=== PATIENT | female | born 1980 | race Caucasian/White ===

== ENCOUNTER → 2017-07-16 | Outpatient (CLI) | payer BC ==
[2017-07-16 18:43] LABS: Basophils # (A) 0.1 k/uL (0-0.2); Basophils % (A) 1 %; Eosinophils # (A) 0.4 k/uL (0-0.7); Eosinophils % (A) 5 %; HCT 41.6 % (34.0-46.0); HGB 13.6 gm/dL (11.4-16.0); Lymphocytes # (A) 2.5 k/uL (1.0-4.8); Lymphocytes % (A) 28 %; MCH 26.9 pg (25.0-35.0); MCHC 32.7 g/dL (31.0-37.0); MCV 82.2 fL (80.0-100.0); Mean Platelet Volume 7.5; Monocytes # (A) 0.4 k/uL (0-1.0); Monocytes % (A) 5 %; Neutrophils # (A) 5.7 k/uL (1.3-7.7); Neutrophils % (A) 62 %; Platelet Count 410 k/uL (150-450); RBC 5.06 m/uL (3.80-5.40); RDW 13.9 % (11.5-15.5); WBC 9.2 k/uL (3.8-10.6)
[2017-07-16 18:52] LABS: ALT 31 U/L (9-52); AST 20 U/L (14-36); Albumin 4.1 g/dL (3.5-5.0); Alkaline Phosphatase 60 U/L (38-126); Anion Gap 9 mmol/L; Blood Urea Nitrogen 13 mg/dL (7-17); Calcium 10.4 mg/dL (8.4-10.2); Carbon Dioxide 30 mmol/L (22-30); Chloride 102 mmol/L (98-107); Cholesterol 176 mg/dL (<200); Glucose 132 mg/dL (74-99); HDL Cholesterol 41 mg/dL (40-60); Potassium 4.9 mmol/L (3.5-5.1); Sodium 141 mmol/L (137-145); Total Bilirubin 0.4 mg/dL (0.2-1.3); Total Protein 7.4 g/dL (6.3-8.2); Triglycerides 409 mg/dL (<150)
[2017-07-16 19:07] LABS: T4, Free (Free Thyroxine) 1.02 ng/dL (0.78-2.19)
[2017-07-17 01:27] LABS: Vitamin D 25 Hydroxy 5.3 ng/mL (30.0-100.0)
[2017-07-18 12:51] LABS: Hemoglobin A1C 6.2 % (4.0-6.0)
== END | disposition home or self-care (01) ==
LOC: MMGSC 10:13
PROVIDERS: ATTEND Family Medicine
DX: Z00.00 Encounter for general adult medical examination without abnormal findings (principal); Z71.3 Dietary counseling and surveillance
CPT/HCPCS: 36415; 80053; 80061; 82306; 82607; 83036; 83721; 84439; 84443; 85025

== ENCOUNTER 2018-05-01 17:01 | Emergency (ER) | payer BC ==
[2018-05-01 17:31] VITALS: TEMP 98.8
[2018-05-01] MEDS ORDERED: ONDANSETRON 4 MG/2 ML VIAL IVP STA (18:00)
[2018-05-01] MEDS ORDERED: MORPHINE SULFATE 4 MG/ML SYRINGE IV STA (18:00)
[2018-05-01] MEDS ORDERED: PANTOPRAZOLE 40 MG/10 ML VIAL IVP STA (18:00)
[2018-05-01] MEDS ORDERED: SODIUM CHLORIDE 0.9% 1,000 ML IV STA (18:00)
[2018-05-01 18:38] LABS: Basophils # (A) 0.1 k/uL (0-0.2); Basophils % (A) 1 %; Eosinophils # (A) 0.2 k/uL (0-0.7); Eosinophils % (A) 2 %; HCT 44.5 % (34.0-46.0); HGB 15.1 gm/dL (11.4-16.0); Lymphocytes # (A) 2.5 k/uL (1.0-4.8); Lymphocytes % (A) 27 %; MCH 26.8 pg (25.0-35.0); MCV 78.7 fL (80.0-100.0); Mean Platelet Volume 6.4; Monocytes # (A) 0.4 k/uL (0-1.0); Monocytes % (A) 4 %; Neutrophils % (A) 64 %; Platelet Count 407 k/uL (150-450); RBC 5.65 m/uL (3.80-5.40); RDW 14.5 % (11.5-15.5); WBC 9.4 k/uL (3.8-10.6)
[2018-05-01 18:39] LABS: Appearance,Urine Cloudy (Clear); Bacteria,Urine Rare /hpf; Bilirubin,Urine Negative (Negative); Blood,Urine Negative (Negative); Color,Urine Yellow; Glucose,Urine (UA) Negative (Negative); Hyaline Casts,Urine 19 /lpf (0-2); Ketones,Urine Negative (Negative); Leukocyte Esterase,Urine Negative (Negative); Mucus,Urine Many /hpf; Nitrite,Urine Negative (Negative); Protein,Urine 1+ (Negative); RBC,Urine 1 /hpf (0-5); Specific Gravity,Urine 1.017 (1.001-1.035); Squamous Epithelial Cell,Urine 2 /hpf (0-4); WBC,Urine 5 /hpf (0-5)
[2018-05-01 19:04] LABS: ALT 59 U/L (9-52); AST 37 U/L (14-36); Albumin 4.5 g/dL (3.5-5.0); Alkaline Phosphatase 53 U/L (38-126); Amylase 52 U/L (30-110); Anion Gap 11 mmol/L; Blood Urea Nitrogen 12 mg/dL (7-17); Calcium 9.8 mg/dL (8.4-10.2); Carbon Dioxide 24 mmol/L (22-30); Chloride 102 mmol/L (98-107); Glucose 150 mg/dL (74-99); Lipase 69 U/L (23-300); Potassium 4.1 mmol/L (3.5-5.1); Sodium 137 mmol/L (137-145); Total Bilirubin 0.5 mg/dL (0.2-1.3); Total Protein 7.9 g/dL (6.3-8.2)
--- NOTE | 2018-05-01 19:47 | CT ---
EXAMINATION TYPE: CT abdomen pelvis w con DATE OF EXAM: 05/01/2018 COMPARISON: None HISTORY: Abdominal pain x6 days CT DLP: 1294.1 mGycm Automated exposure control for dose reduction was used. TECHNIQUE: Helical acquisition of images was performed from the lung bases through the pelvis. CONTRAST: Performed without Oral Contrast and with IV Contrast, patient injected with 100 mL of Isovue 300. FINDINGS: Lung bases are clear. There is no pleural effusion. Heart size is normal. There is no pericardial eff usion. Liver shows no focal defect. Gallbladder appears normal. Bile ducts are not dilated. Spleen appears n ormal. Stomach appears normal. There is no evidence of pancreatic mass. There is no adrenal mass. Kidneys show satisfactory contrast opacification. There is no hydronephrosi s. There is no retroperitoneal adenopathy. Bladder distends smoothly. There is no free fluid in the p yuri. There is no inguinal hernia. There is no mesenteric edema or adenopathy. The appendix appears normal. Uterus is anteverted. There is no evidence of a pelvic mass. Lumbar spine is intact. Bony pelvis is intact. IMPRESSION: NEGATIVE CT SCAN OF THE ABDOMEN AND PELVIS.
--- NOTE | 2018-05-01 20:14 | ED ---
Abdominal Pain HPI - General Chief Complaint: Abdominal Pain Stated Complaint: ABDOMINAL PAIN Time Seen by Provider: 05/01/18 17:59 Source: patient, RN notes reviewed, old records reviewed Mode of arrival: ambulatory Limitations: no limitations - History of Present Illness Initial Comments: This is a 37-year-old female the ER for evasive nausea vomiting diarrhea denies fever. Denies blood in her vomit or stool. No prior history of very similar complaints no family members no known sick contacts of similar complaints no travel history. No modifying factors for patient's symptoms at home. She does feel weak lightheaded may be wrong mildly dehydrated. Patient denies significant surgical history MD Complaint: abdominal pain -: days(s) Location: diffuse, epigastric Radiation: epigastric Migration to: no migration Severity: mild Severity scale (1-10): 3 Quality: cramping, dull Improves With: nothing Worsens With: eating, bowel movement, vomiting Context: other (None) Associated Symptoms: other (None) Treatments Prior to Arrival: other (None) - Related Data Home Medications Medication Instructions Recorded Confirmed Dicyclomine [Bentyl] 10 mg PO TID PRN 05/01/18 05/01/18 Naproxen Sodium [Aleve] 220 mg PO BID PRN 05/01/18 05/01/18 Allergies Allergy/AdvReac Type Severity Reaction Status Date / Time No Known Allergies Allergy Verified 05/01/18 18:13 Review of Systems ROS Statement: Those systems with pertinent positive or pertinent negative responses have been documented in the HPI. ROS Other: All systems not noted in ROS Statement are negative. Past Medical History Additional Past Medical History / Comment(s): herniated disc History of Any Multi-Drug Resistant Organisms: None Reported Additional Past Surgical History / Comment(s): liposuction and a tummy tuck Past Psychological History: No Psychological Hx Reported Smoking Status: Current some day smoker Past Alcohol Use History: Rare Past Drug Use History: Marijuana General Exam Limitations: no limitations General appearance: alert, in no apparent distress Head exam: Present: atraumatic, normocephalic, normal inspection Eye exam: Present: normal appearance, PERRL, EOMI. Absent: scleral icterus, conjunctival injection, periorbital swelling ENT exam: Present: normal exam, mucous membranes moist Neck exam: Present: normal inspection. Absent: tenderness, meningismus, lymphadenopathy Respiratory exam: Present: normal lung sounds bilaterally. Absent: respiratory distress, wheezes, rales, rhonchi, stridor Cardiovascular Exam: Present: normal rhythm, tachycardia, normal heart sounds. Absent: systolic murmur, diastolic murmur, rubs, gallop, clicks GI/Abdominal exam: Present: soft, normal bowel sounds. Absent: distended, tenderness, guarding, rebound, rigid Extremities exam: Present: normal inspection, full ROM, normal capillary refill. Absent: tenderness, pedal edema, joint swelling, calf tenderness Back exam: Present: normal inspection Neurological exam: Present: alert, oriented X3, CN II-XII intact Psychiatric exam: Present: normal affect, normal mood Skin exam: Present: warm, dry, intact, normal color. Absent: rash Course Vital Signs 05/01/18 05/01/18 17:27 20:15 Temperature 98.8 F Pulse Rate 107 H 86 Respiratory 18 16 Rate Blood Pressure 140/93 129/79 O2 Sat by Pulse 97 99 Oximetry Medical Decision Making - Medical Decision Making 37 female the ER for eversion nausea vomiting diarrhea and abdominal pain. Patient has normal CAT scan here in the ER left lites are within normal limits, patient's not actively vomiting with improved symptomatically management. Patient can be discharged home - Lab Data Result diagrams: 05/01/18 18:10 05/01/18 18:10 Lab Results 05/01/18 05/01/18 05/01/18 Range/Units 18:10 18:10 18:10 WBC 9.4 (3.8-10.6) k/uL RBC 5.65 H (3.80-5.40) m/uL Hgb 15.1 (11.4-16.0) gm/dL Hct 44.5 (34.0-46.0) % MCV 78.7 L (80.0-100.0) fL MCH 26.8 (25.0-35.0) pg MCHC 34.0 (31.0-37.0) g/dL RDW 14.5 (11.5-15.5) % Plt Count 407 (150-450) k/uL Neutrophils % 64 % Lymphocytes % 27 % Monocytes % 4 % Eosinophils % 2 % Basophils % 1 % Neutrophils # 6.0 (1.3-7.7) k/uL Lymphocytes # 2.5 (1.0-4.8) k/uL Monocytes # 0.4 (0-1.0) k/uL Eosinophils # 0.2 (0-0.7) k/uL Basophils # 0.1 (0-0.2) k/uL Sodium 137 (137-145) mmol/L Potassium 4.1 (3.5-5.1) mmol/L Chloride 102 (98-107) mmol/L Carbon Dioxide 24 (22-30) mmol/L Anion Gap 11 mmol/L BUN 12 (7-17) mg/dL Creatinine 0.69 (0.52-1.04) mg/dL Est GFR (CKD-EPI)AfAm >90 (>60 ml/min/1.73 sqM) Est GFR (CKD-EPI)NonAf >90 (>60 ml/min/1.73 sqM) Glucose 150 H (74-99) mg/dL Calcium 9.8 (8.4-10.2) mg/dL Total Bilirubin 0.5 (0.2-1.3) mg/dL AST 37 H (14-36) U/L ALT 59 H (9-52) U/L Alkaline Phosphatase 53 (38-126) U/L Total Protein 7.9 (6.3-8.2) g/dL Albumin 4.5 (3.5-5.0) g/dL Amylase 52 (30-110) U/L Lipase 69 (23-300) U/L Urine Color Urine Appearance (Clear) Urine pH (5.0-8.0) Ur Specific [place] (1.001-1.035) Urine Protein (Negative) Urine Glucose (UA) (Negative) Urine Ketones (Negative) Urine Blood (Negative) Urine Nitrite (Negative) Urine Bilirubin (Negative) Urine Urobilinogen (<2.0) mg/dL Ur Leukocyte Esterase (Negative) Urine RBC (0-5) /hpf Urine WBC (0-5) /hpf Ur Squamous Epith Cells (0-4) /hpf Urine Bacteria (None) /hpf Hyaline Casts (0-2) /lpf Urine Mucus (None) /hpf Urine HCG, Qual Not Detected (Not Detectd) 05/01/18 Range/Units 18:10 WBC (3.8-10.6) k/uL RBC (3.80-5.40) m/uL Hgb (11.4-16.0) gm/dL Hct (34.0-46.0) % MCV (80.0-100.0) fL MCH (25.0-35.0) pg MCHC (31.0-37.0) g/dL RDW (11.5-15.5) % Plt Count (150-450) k/uL Neutrophils % % Lymphocytes % % Monocytes % % Eosinophils % % Basophils % % Neutrophils # (1.3-7.7) k/uL Lymphocytes # (1.0-4.8) k/uL Monocytes # (0-1.0) k/uL Eosinophils # (0-0.7) k/uL Basophils # (0-0.2) k/uL Sodium (137-145) mmol/L Potassium (3.5-5.1) mmol/L Chloride (98-107) mmol/L Carbon Dioxide (22-30) mmol/L Anion Gap mmol/L BUN (7-17) mg/dL Creatinine (0.52-1.04) mg/dL Est GFR (CKD-EPI)AfAm (>60 ml/min/1.73 sqM) Est GFR (CKD-EPI)NonAf (>60 ml/min/1.73 sqM) Glucose (74-99) mg/dL Calcium (8.4-10.2) mg/dL Total Bilirubin (0.2-1.3) mg/dL AST (14-36) U/L ALT (9-52) U/L Alkaline Phosphatase (38-126) U/L Total Protein (6.3-8.2) g/dL Albumin (3.5-5.0) g/dL Amylase (30-110) U/L Lipase (23-300) U/L Urine Color Yellow Urine Appearance Cloudy H (Clear) Urine pH 6.0 (5.0-8.0) Ur Specific [place] 1.017 (1.001-1.035) Urine Protein 1+ H (Negative) Urine Glucose (UA) Negative (Negative) Urine Ketones Negative (Negative) Urine Blood Negative (Negative) Urine Nitrite Negative (Negative) Urine Bilirubin Negative (Negative) Urine Urobilinogen 2.0 (<2.0) mg/dL Ur Leukocyte Esterase Negative (Negative) Urine RBC 1 (0-5) /hpf Urine WBC 5 (0-5) /hpf Ur Squamous Epith Cells 2 (0-4) /hpf Urine Bacteria Rare H (None) /hpf Hyaline Casts 19 H (0-2) /lpf Urine Mucus Many H (None) /hpf Urine HCG, Qual (Not Detectd) - Radiology Data Radiology results: report reviewed (CT head and pelvis is negative for acute disease), image reviewed Disposition Clinical Impression: Abdominal pain Disposition: HOME SELF-CARE Condition: Good Instructions: Abdominal Pain (ED) Is patient prescribed a controlled substance at d/c from ED?: No Referrals: Sandy Roper MD [Primary Care Provider] - 1-2 days
[2018-05-01 20:16] VITALS: BP 129/79; PULSE 86; RESP 16
== END 2018-05-01 21:45 | disposition home or self-care (01) ==
LOC: EC 17:01
DX: R10.84 Generalized abdominal pain (principal); R11.2 Nausea with vomiting, unspecified; R19.7 Diarrhea, unspecified; F17.200 Nicotine dependence, unspecified, uncomplicated
CPT/HCPCS: 36415; 80053; 82150; 83690; 85025; 81001; 81025; 87086; 74177; 99284; 96374; 96375 ×2; 96361; J2270; J2405; C9113; Q9967

== ENCOUNTER 2020-02-21 19:08 | Emergency (ER) | payer BC ==
[2020-02-21 19:17] VITALS: TEMP 97.5
[2020-02-21] MEDS ORDERED: ONDANSETRON 4 MG/2 ML VIAL IVP STA (19:29)
[2020-02-21] MEDS ORDERED: SODIUM CHLORIDE 0.9% 500 ML 500 ML IV STA (19:29)
[2020-02-21] MEDS ORDERED: HYDROmorphone 0.5 MG/0.5 ML SYRINGE IVP STA ×3 (19:29→22:00)
[2020-02-21] MEDS ORDERED: SODIUM CHLORIDE 0.9% 1,000 ML IV STA (19:29)
[2020-02-21] MEDS ORDERED: FAMOTIDINE 20 MG/2 ML VIAL IV STA (19:30)
[2020-02-21] MEDS ORDERED: HYDROmorphone 1 MG/ML 1 ML SYRINGE IVP STA (19:40)
--- NOTE | 2020-02-21 19:41 | ED ---
Abdominal Pain HPI - General Chief Complaint: Abdominal Pain Stated Complaint: abd pain Time Seen by Provider: 02/21/20 19:18 Source: patient Mode of arrival: ambulatory Limitations: no limitations - History of Present Illness Initial Comments: 39-year-old female patient presents to the emergency department today for evaluation of midepigastric and left upper quadrant abdominal pain. Patient states that the pain is present since yesterday. Patient states she has been unable to keep down food or fluids today. His had frequent vomiting. Patient states that she has had similar episodes of pain 3-4 times over the last 2 years. States that she has been evaluated during those times and they have not been able to figure out what is going on. Patient states she feels feverish but her reports she feels cool to touch. She states when she gets anxious and upset she does have some chest discomfort. She did have an episode of diarrhea this morning. Denies any hematochezia, melena, hematemesis. She has had tummy tuck in the past but no other abdominal surgeries. Denies history of EGD or colonoscopy. Patient denies any recent rash, cough, shortness of breath, back pain, numbness, tingling, dizziness, weakness, hematuria, dysuria, urinary urgency, urinary frequency, headache, visual changes, or any other complaints. - Related Data Home Medications Medication Instructions Recorded Confirmed Dicyclomine [Bentyl] 10 mg PO TID PRN 05/01/18 05/01/18 Naproxen Sodium [Aleve] 220 mg PO BID PRN 05/01/18 05/01/18 Previous Rx's Medication Instructions Recorded Ondansetron [Zofran ODT] 4 mg PO Q8HR PRN #10 tab 02/21/20 Allergies Allergy/AdvReac Type Severity Reaction Status Date / Time No Known Allergies Allergy Verified 02/21/20 19:17 Review of Systems ROS Statement: Those systems with pertinent positive or pertinent negative responses have been documented in the HPI. ROS Other: All systems not noted in ROS Statement are negative. Past Medical History Past Medical History: Diabetes Mellitus Additional Past Medical History / Comment(s): herniated disc History of Any Multi-Drug Resistant Organisms: None Reported Additional Past Surgical History / Comment(s): liposuction and a tummy tuck Past Psychological History: No Psychological Hx Reported Smoking Status: Former smoker Past Alcohol Use History: Rare Past Drug Use History: Marijuana General Exam Limitations: no limitations General appearance: alert, in no apparent distress, other (This is a well- developed, well-nourished adult female patient in no acute distress. Vital signs upon presentation are temperature 97.5F, pulse 89, respirations 18, blood pressure 191/83, pulse ox 97% on room air.) ENT exam: Present: normal exam, normal oropharynx, mucous membranes moist Respiratory exam: Present: normal lung sounds bilaterally. Absent: respiratory distress, wheezes, rales, rhonchi, stridor Cardiovascular Exam: Present: regular rate, normal rhythm, normal heart sounds. Absent: systolic murmur, diastolic murmur, rubs, gallop, clicks GI/Abdominal exam: Present: soft, tenderness (Midepigastric, left upper quadrant), normal bowel sounds. Absent: distended, guarding, rebound, rigid Neurological exam: Present: alert, oriented X3, CN II-XII intact Psychiatric exam: Present: normal affect, normal mood Skin exam: Present: warm, dry, intact, normal color. Absent: rash Course Vital Signs 02/21/20 02/21/20 02/21/20 19:14 22:00 23:43 Temperature 97.5 F L Pulse Rate 89 85 Respiratory 18 18 16 Rate Blood Pressure 191/83 132/109 120/70 O2 Sat by Pulse 97 96 Oximetry Medical Decision Making - Medical Decision Making 39-year-old female patient presents to the emergency department today for evaluation of left upper quadrant and midepigastric abdominal pain. The patient is also reporting vomiting throughout the day today. Physical examination did reveal tenderness over the left upper quadrant region. Labs reviewed and did reveal white blood cell count at 16.1, glucose 187. Troponin is negative. Urinalysis shows 4+ ketones, 1+ glucose. CT abdomen and pelvis was obtained and was negative. Upon reevaluation patient is resting comfortably in bed. States she is having improvement of symptoms. She will be discharged home to follow-up with her primary care physician for recheck in one to days. We will refer her to GI specialty for possible upper GI endoscopy and colonoscopy. She is given prescription the medication. Return parameters were discussed in detail. She verbalizes understanding and agrees with this plan. - Lab Data Result diagrams: 02/21/20 19:52 02/21/20 19:52 Lab Results 02/21/20 02/21/20 02/21/20 Range/Units 19:52 19:52 19:52 WBC 16.1 H (3.8-10.6) k/uL RBC 5.70 H (3.80-5.40) m/uL Hgb 15.9 (11.4-16.0) gm/dL Hct 46.2 H (34.0-46.0) % MCV 80.9 (80.0-100.0) fL MCH 27.8 (25.0-35.0) pg MCHC 34.4 (31.0-37.0) g/dL RDW 13.0 (11.5-15.5) % Plt Count 390 (150-450) k/uL Neutrophils % 84 % Lymphocytes % 13 % Monocytes % 3 % Eosinophils % 0 % Basophils % 0 % Neutrophils # 13.5 H (1.3-7.7) k/uL Lymphocytes # 2.0 (1.0-4.8) k/uL Monocytes # 0.4 (0-1.0) k/uL Eosinophils # 0.0 (0-0.7) k/uL Basophils # 0.0 (0-0.2) k/uL Sodium 137 (137-145) mmol/L Potassium 4.3 (3.5-5.1) mmol/L Chloride 103 (98-107) mmol/L Carbon Dioxide 19 L (22-30) mmol/L Anion Gap 15 mmol/L BUN 17 (7-17) mg/dL Creatinine 0.75 (0.52-1.04) mg/dL Est GFR (CKD-EPI)AfAm >90 (>60 ml/min/1.73 sqM) Est GFR (CKD-EPI)NonAf >90 (>60 ml/min/1.73 sqM) Glucose 187 H (74-99) mg/dL Calcium 10.0 (8.4-10.2) mg/dL Total Bilirubin 1.0 (0.2-1.3) mg/dL AST 22 (14-36) U/L ALT 25 (4-34) U/L Alkaline Phosphatase 64 (38-126) U/L Troponin I <0.012 (0.000-0.034) ng/mL Total Protein 8.2 (6.3-8.2) g/dL Albumin 4.8 (3.5-5.0) g/dL Amylase 100 (30-110) U/L Lipase 126 (23-300) U/L Urine Color Urine Appearance (Clear) Urine pH (5.0-8.0) Ur Specific [place] (1.001-1.035) Urine Protein (Negative) Urine Glucose (UA) (Negative) Urine Ketones (Negative) Urine Blood (Negative) Urine Nitrite (Negative) Urine Bilirubin (Negative) Urine Urobilinogen (<2.0) mg/dL Ur Leukocyte Esterase (Negative) 02/21/20 Range/Units 21:15 WBC (3.8-10.6) k/uL RBC (3.80-5.40) m/uL Hgb (11.4-16.0) gm/dL Hct (34.0-46.0) % MCV (80.0-100.0) fL MCH (25.0-35.0) pg MCHC (31.0-37.0) g/dL RDW (11.5-15.5) % Plt Count (150-450) k/uL Neutrophils % % Lymphocytes % % Monocytes % % Eosinophils % % Basophils % % Neutrophils # (1.3-7.7) k/uL Lymphocytes # (1.0-4.8) k/uL Monocytes # (0-1.0) k/uL Eosinophils # (0-0.7) k/uL Basophils # (0-0.2) k/uL Sodium (137-145) mmol/L Potassium (3.5-5.1) mmol/L Chloride (98-107) mmol/L Carbon Dioxide (22-30) mmol/L Anion Gap mmol/L BUN (7-17) mg/dL Creatinine (0.52-1.04) mg/dL Est GFR (CKD-EPI)AfAm (>60 ml/min/1.73 sqM) Est GFR (CKD-EPI)NonAf (>60 ml/min/1.73 sqM) Glucose (74-99) mg/dL Calcium (8.4-10.2) mg/dL Total Bilirubin (0.2-1.3) mg/dL AST (14-36) U/L ALT (4-34) U/L Alkaline Phosphatase (38-126) U/L Troponin I (0.000-0.034) ng/mL Total Protein (6.3-8.2) g/dL Albumin (3.5-5.0) g/dL Amylase (30-110) U/L Lipase (23-300) U/L Urine Color Light Yellow Urine Appearance Clear (Clear) Urine pH 6.5 (5.0-8.0) Ur Specific [place] 1.016 (1.001-1.035) Urine Protein Trace H (Negative) Urine Glucose (UA) 1+ H (Negative) Urine Ketones 4+ H (Negative) Urine Blood Negative (Negative) Urine Nitrite Negative (Negative) Urine Bilirubin Negative (Negative) Urine Urobilinogen <2.0 (<2.0) mg/dL Ur Leukocyte Esterase Negative (Negative) - EKG Data -: EKG Interpreted by Me EKG Comments: EKG obtained at 2024 shows normal sinus rhythm with a sinus arrhythmia, prolonged QT interval, ventricular rate is 85, W[place] interval 146, QRS duration 88, QT 390, QTc 464. No evidence of ST elevation or depression. - Radiology Data Radiology results: report reviewed, image reviewed CT abdomen and pelvis with contrast was obtained. Report reviewed in its entirety. Impression by Dr. Trejo shows negative computed tomography scan of the abdomen and pelvis. There is some improvement in the fatty infiltration of the liver compared to old exam. Disposition Clinical Impression: Abdominal pain Disposition: HOME SELF-CARE Condition: Good Instructions (If sedation given, give patient instructions): Abdominal Pain (ED) Additional Instructions: Take medication as directed. Start with a clear liquid diet and advance as tolerated. Follow up with the primary care physician for recheck in 1-2 days. Follow up with GI specialist for further evaluation. Return to the emergency department immediately for any new, worsening, or concerning symptoms. Prescriptions: Ondansetron [Zofran ODT] 4 mg PO Q8HR PRN #10 tab PRN Reason: Nausea Is patient prescribed a controlled substance at d/c from ED?: No Referrals: Sandy Roper MD [Primary Care Provider] - 1-2 days Mariposa Antunez MD [STAFF PHYSICIAN] - 1-2 days Time of Disposition: 23:25
[2020-02-21 20:25] LABS: ALT 25 U/L (4-34); AST 22 U/L (14-36); African American GFR (CKD) >90 (>60 ml/min/1.73 sqM); Albumin 4.8 g/dL (3.5-5.0); Alkaline Phosphatase 64 U/L (38-126); Amylase 100 U/L (30-110); Anion Gap 15 mmol/L; Blood Urea Nitrogen 17 mg/dL (7-17); Carbon Dioxide 19 mmol/L (22-30); Chloride 103 mmol/L (98-107); Glucose 187 mg/dL (74-99); Non-African American GFR(CKD) >90 (>60 ml/min/1.73 sqM); Potassium 4.3 mmol/L (3.5-5.1); Sodium 137 mmol/L (137-145); Total Protein 8.2 g/dL (6.3-8.2)
[2020-02-21 20:39] LABS: Basophils % (A) 0 %; Eosinophils % (A) 0 %; HCT 46.2 % (34.0-46.0); HGB 15.9 gm/dL (11.4-16.0); Lymphocytes % (A) 13 %; MCH 27.8 pg (25.0-35.0); MCHC 34.4 g/dL (31.0-37.0); MCV 80.9 fL (80.0-100.0); Mean Platelet Volume 7.1; Monocytes # (A) 0.4 k/uL (0-1.0); Monocytes % (A) 3 %; Neutrophils # (A) 13.5 k/uL (1.3-7.7); Neutrophils % (A) 84 %; Platelet Count 390 k/uL (150-450); WBC 16.1 k/uL (3.8-10.6)
[2020-02-21 21:39] LABS: Appearance,Urine Clear (Clear); Bilirubin,Urine Negative (Negative); Blood,Urine Negative (Negative); Color,Urine Light Yellow; Glucose,Urine (UA) 1+ (Negative); Leukocyte Esterase,Urine Negative (Negative); Nitrite,Urine Negative (Negative); PH, Urine 6.5 (5.0-8.0); Protein,Urine Trace (Negative); Specific Gravity,Urine 1.016 (1.001-1.035); Urobilinogen,Urine <2.0 mg/dL (<2.0)
[2020-02-21 21:57] LABS: Ketones,Urine 4+ (Negative)
--- NOTE | 2020-02-21 23:14 | CT ---
EXAMINATION TYPE: CT abdomen pelvis w con DATE OF EXAM: 02/21/2020 COMPARISON: 05/01/2018 HISTORY: Left upper quadrant pain. CT DLP: 1380.9 mGycm Automated exposure control for dose reduction was used. CONTRAST: Performed with IV Contrast, patient injected with 100 mL of Isovue 300. The lung bases are clear. There is no pleural effusion. Heart size is normal. There is no pericardial effusion. Stomach is intact. Liver spleen pancreas gallbladder appear normal. Bile ducts are not dil ated. There is no adrenal mass. Kidneys show satisfactory contrast opacification. There is no hydrone phrosis. Ureters are not dilated. There is no retroperitoneal adenopathy. The delayed images show nor mal renal excretion. Bladder distends smoothly. Uterus is anteverted. There are small cysts on the le ft ovary. There is no free fluid in the pelvis. Appendix is posterior and appears normal. There is so me minimal scar tissue over the anterior lower abdomen in the subcutaneous tissues. There is no mesenteric edema. There is no ascites or free air. There is no bowel obstruction. The lumbar vertebra have normal spacing and alignment. Posterior elements are intact. There is no com pression fracture. IMPRESSION: Negative CT scan of the abdomen and pelvis. There is improvement in the fatty infiltration of the brand[place] er compared to old exam.
[2020-02-21] MEDS ORDERED: ONDANSETRON 4 MG ODT STARTER PACK 2 TAB BTL PO STA (23:23)
[2020-02-21] MEDS ORDERED: ACET/COD 300 MG/30 MG STARTER PACK 6 TAB BTL PO STA (23:23)
[2020-02-21 23:44] VITALS: BP 120/70; PULSE 85; RESP 16
== END 2020-02-21 23:44 | disposition home or self-care (01) ==
LOC: EC 19:08
DX: R10.13 Epigastric pain (principal); R10.12 Left upper quadrant pain; R10.812 Left upper quadrant abdominal tenderness; R11.10 Vomiting, unspecified; Z87.891 Personal history of nicotine dependence
CPT/HCPCS: 36415; 93005; 80053; 82150; 83690; 84484; 85025; 81003; 74177; 99284; 96374; 96375 ×2; 96376; 96361; J2405; S0119; J1170; Q9967

== ENCOUNTER 2020-02-22 03:04 | Emergency (ER) | payer BC ==
[2020-02-22 03:21] VITALS: TEMP 97.6
[2020-02-22] MEDS ORDERED: MAG HYDROX/AL HYDROX/SIMETH 30 ML, HYOSCYAMINE ELIXIR 10 ML, LIDOCAINE VISCOUS 2% 10 ML PO STA ×3 (03:26)
[2020-02-22] MEDS ORDERED: HALOPERIDOL LACTATE 5 MG/ML 1 ML VIAL IVP STA (03:27)
[2020-02-22] MEDS ORDERED: PANTOPRAZOLE 40 MG/10 ML VIAL IVP STA (03:28)
[2020-02-22] MEDS ORDERED: SODIUM CHLORIDE 0.9% 1,000 ML IV ONE (03:28)
[2020-02-22 04:26] LABS: Cocaine Screen,Urine Not Detected (NotDetected); Opiate Screen,Urine Detected (NotDetected); Phencyclidine Screen,Urine Not Detected (NotDetected)
[2020-02-22 04:27] LABS: Amphetamine Screen,Urine Detected (NotDetected); Barbiturate Screen,Urine Not Detected (NotDetected); Benzodiazepines Screen,Urine Detected (NotDetected); Methadone Screen, Urine Not Detected (NotDetected); Oxycodone Screen, Urine Not Detected (NotDetected); Tricyclic Antidepressant,Urine Not Detected (NotDetected); Urn Cannabinoid Scrn Detected (NotDetected)
--- NOTE | 2020-02-22 05:29 | ED ---
Abdominal Pain HPI - General Chief Complaint: Abdominal Pain Stated Complaint: abd pain Time Seen by Provider: 02/22/20 03:06 Source: patient Mode of arrival: ambulatory Limitations: no limitations - History of Present Illness Initial Comments: Parker is a 39-year-old diabetic female with a history of regular marijuana use who presents to the ER today for reevaluation of epigastric and left upper quadrant abdominal pain. Patient was seen and evaluated only hours ago. She was treated with Dilaudid her pain resolved she slept comfortably and was disch arged home after negative CT and normal labs. Patient reports that she was on for less than an hour when her pain returned she had persistent nausea and decided to return to the ER for further evaluation. - Related Data Home Medications Medication Instructions Recorded Confirmed Dicyclomine [Bentyl] 10 mg PO TID PRN 05/01/18 05/01/18 Naproxen Sodium [Aleve] 220 mg PO BID PRN 05/01/18 05/01/18 Previous Rx's Medication Instructions Recorded Ondansetron [Zofran ODT] 4 mg PO Q8HR PRN #10 tab 02/21/20 Allergies Allergy/AdvReac Type Severity Reaction Status Date / Time No Known Allergies Allergy Verified 02/21/20 19:17 Review of Systems ROS Statement: Those systems with pertinent positive or pertinent negative responses have been documented in the HPI. ROS Other: All systems not noted in ROS Statement are negative. Past Medical History Past Medical History: Diabetes Mellitus Additional Past Medical History / Comment(s): herniated disc History of Any Multi-Drug Resistant Organisms: None Reported Additional Past Surgical History / Comment(s): liposuction and a tummy tuck Past Psychological History: No Psychological Hx Reported Smoking Status: Former smoker Past Alcohol Use History: Rare Past Drug Use History: Marijuana General Exam - General Exam Comments Initial Comments: Physical Exam GENERAL: Patient is well-developed and well-nourished. Patient is nontoxic and well-hydrated and is in no distress. HENT: Normocephalic, Atraumatic. EYES: PERRL, EOMI PULMONARY: Unlabored respirations. CARDIOVASCULAR: RRR Warm and well perfused extremities ABDOMEN: Non-distended Obese, not peritoneal SKIN: No rashes or bruising : Deferred NEUROLOGIC: Alert and oriented Normal speech Normal gait MUSCULOSKELETAL: Moving all extremities with no apparent injury PSYCHIATRIC: No SI/HI Limitations: no limitations Course Vital Signs 02/22/20 02/22/20 03:15 05:39 Temperature 97.6 F Pulse Rate 89 61 Respiratory 20 16 Rate Blood Pressure 195/128 129/67 O2 Sat by Pulse 98 95 Oximetry Medical Decision Making - Medical Decision Making The patient was seen and evaluated history is obtained from patient Patient was released from the ER less than 1 hour ago, labs and imaging from that stay were reviewed Upon further history patient does admit to regular marijuana use. The possibility of cyclic vomiting versus gastroparesis was discussed with the patient. We will treat with antiemetics Haldol. Patient received medications and was found be sleeping comfortably throughout her stay in the ER. Urine drug screen is positive for multiple substances including marijuana and amphetamines Patient has been sleeping for over one hour, she has had no vomiting while in the emergency department at this time the patient is stable for discharge home. - Lab Data Lab Results 02/22/20 Range/Units 04:02 Urine Opiates Screen Detected H (NotDetected) Ur Oxycodone Screen Not Detected (NotDetected) Urine Methadone Screen Not Detected (NotDetected) Ur Propoxyphene Screen Not Detected (NotDetected) Ur Barbiturates Screen Not Detected (NotDetected) U Tricyclic Antidepress Not Detected (NotDetected) Ur Phencyclidine Scrn Not Detected (NotDetected) Ur Amphetamines Screen Detected H (NotDetected) U Methamphetamines Scrn Not Detected (NotDetected) U Benzodiazepines Scrn Detected H (NotDetected) Urine Cocaine Screen Not Detected (NotDetected) U Marijuana (THC) Screen Detected H (NotDetected) Disposition Clinical Impression: Nausea and vomiting Disposition: HOME SELF-CARE Condition: Stable Additional Instructions: As we discussed the episode of abdominal pain nausea vomiting could be gastroparesis caused by diabetes however it could be cyclic vomiting syndrome or marijuana hyperemesis. Further episodes similar to this can be prevented by stopping smoking marijuana. They can shear hydrated. When he began to feel this way sometimes a hot shower will help. If anything worsens return to the ER Is patient prescribed a controlled substance at d/c from ED?: No Referrals: Sandy Roper MD [Primary Care Provider] - 1-2 days
[2020-02-22 05:42] VITALS: BP 129/67; PULSE 61; RESP 16
== END 2020-02-22 05:42 | disposition home or self-care (01) ==
LOC: EC 03:04
DX: R11.2 Nausea with vomiting, unspecified (principal); R10.13 Epigastric pain; R10.12 Left upper quadrant pain; Z87.891 Personal history of nicotine dependence
CPT/HCPCS: 80306; 99284; 96374; 96375; 96361; J1630; C9113

== ENCOUNTER 2020-02-24 07:04 | Observation (INO) | payer BC ==
[2020-02-24] MEDS ORDERED: SODIUM CHLORIDE 0.9% 1,000 ML IV STA (07:22)
[2020-02-24] MEDS ORDERED: SODIUM CHLORIDE 0.9% 2,000 ML IV STA (07:22)
[2020-02-24] MEDS ORDERED: METOCLOPRAMIDE 5 MG/ML 2 ML VIAL IVP STA (07:22)
--- NOTE | 2020-02-24 07:30 | ED ---
Abdominal Pain HPI - General Chief Complaint: Abdominal Pain Stated Complaint: Abd Pain Time Seen by Provider: 02/24/20 07:07 Source: patient, RN notes reviewed, old records reviewed Mode of arrival: ambulatory Limitations: no limitations - History of Present Illness Initial Comments: This is a 39-year-old female who presents with complaints of persistent nausea vomiting some weakness and feeling of dehydration after having persistent nausea vomiting without diarrhea for the past several days. Is apparently is been intermittent for quite a while she was seen in the emergency department previously for the same. He was surmised that she may have either gastroparesis or simply vomiting she is a marijuana user. She does start is not been able to control it. No fevers chills no sweats she has had decreased oral intake she states that retention try to drink anything it induces vomiting. She states she has tried Capsaicin without relief. No other current complaints or modifying factors no dysuria no hematuria just decreased output secondary to decrease oral intake MD Complaint: abdominal pain, other - Related Data Home Medications Medication Instructions Recorded Confirmed Semaglutide [Rybelsus] 7 mg PO DAILY 02/24/20 02/24/20 Allergies Allergy/AdvReac Type Severity Reaction Status Date / Time No Known Allergies Allergy Verified 02/24/20 10:27 Review of Systems ROS Statement: Those systems with pertinent positive or pertinent negative responses have been documented in the HPI. ROS Other: All systems not noted in ROS Statement are negative. Past Medical History Past Medical History: Diabetes Mellitus Additional Past Medical History / Comment(s): herniated disc History of Any Multi-Drug Resistant Organisms: None Reported Additional Past Surgical History / Comment(s): liposuction and a tummy tuck Past Psychological History: No Psychological Hx Reported Smoking Status: Former smoker Past Alcohol Use History: Rare Past Drug Use History: Marijuana General Exam - General Exam Comments Initial Comments: This is a well-developed well-nourished awake alert oriented 3 female Limitations: no limitations General appearance: alert, in no apparent distress Head exam: Present: atraumatic, normocephalic, normal inspection Eye exam: Present: normal appearance, PERRL, EOMI. Absent: scleral icterus, conjunctival injection, periorbital swelling ENT exam: Present: mucous membranes dry Neck exam: Present: normal inspection. Absent: tenderness, meningismus, lymphadenopathy Respiratory exam: Present: normal lung sounds bilaterally. Absent: respiratory distress, wheezes, rales, rhonchi, stridor Cardiovascular Exam: Present: regular rate, normal rhythm, normal heart sounds. Absent: systolic murmur, diastolic murmur, rubs, gallop, clicks GI/Abdominal exam: Present: soft, tenderness (Mild nonspecific tenderness no guarding no rebound no masses no bruits), normal bowel sounds. Absent: distended, guarding, rebound, rigid Rectal exam: Present: deferred Extremities exam: Present: normal inspection, full ROM, normal capillary refill. Absent: tenderness, pedal edema, joint swelling, calf tenderness Back exam: Present: normal inspection Neurological exam: Present: alert, oriented X3, CN II-XII intact Psychiatric exam: Present: normal affect, normal mood Skin exam: Present: warm, dry, intact, normal color. Absent: rash Course Vital Signs 02/24/20 02/24/20 02/24/20 07:05 08:32 09:18 Temperature 97.0 F L Pulse Rate 100 90 Respiratory 16 18 Rate Blood Pressure 181/90 189/92 156/79 O2 Sat by Pulse 93 L 98 Oximetry Medical Decision Making - Medical Decision Making Patient had persistent ways episodes of nausea and vomiting in spite of the medication given. I did discuss the case with her and her as well as with Dr. Patient be admitted with GI consultation. - Lab Data Result diagrams: 02/24/20 07:28 02/24/20 07:28 Lab Results 02/24/20 02/24/20 02/24/20 Range/Units 07:28 07:28 07:28 WBC 11.4 H (3.8-10.6) k/uL RBC 5.59 H (3.80-5.40) m/uL Hgb 16.0 (11.4-16.0) gm/dL Hct 46.6 H (34.0-46.0) % MCV 83.3 (80.0-100.0) fL MCH 28.6 (25.0-35.0) pg MCHC 34.3 (31.0-37.0) g/dL RDW 12.6 (11.5-15.5) % Plt Count 404 (150-450) k/uL Neutrophils % 74 % Lymphocytes % 18 % Monocytes % 4 % Eosinophils % 2 % Basophils % 1 % Neutrophils # 8.4 H (1.3-7.7) k/uL Lymphocytes # 2.1 (1.0-4.8) k/uL Monocytes # 0.5 (0-1.0) k/uL Eosinophils # 0.2 (0-0.7) k/uL Basophils # 0.1 (0-0.2) k/uL Sodium 135 L (137-145) mmol/L Potassium 4.1 (3.5-5.1) mmol/L Chloride 100 (98-107) mmol/L Carbon Dioxide 27 (22-30) mmol/L Anion Gap 8 mmol/L BUN 10 (7-17) mg/dL Creatinine 0.65 (0.52-1.04) mg/dL Est GFR (CKD-EPI)AfAm >90 (>60 ml/min/1.73 sqM) Est GFR (CKD-EPI)NonAf >90 (>60 ml/min/1.73 sqM) Glucose 148 H (74-99) mg/dL Calcium 9.3 (8.4-10.2) mg/dL Total Bilirubin 0.8 (0.2-1.3) mg/dL AST 42 H (14-36) U/L ALT 47 H (4-34) U/L Alkaline Phosphatase 57 (38-126) U/L Creatine Kinase 35 (30-135) U/L Total Protein 7.5 (6.3-8.2) g/dL Albumin 4.5 (3.5-5.0) g/dL Amylase 110 (30-110) U/L Lipase 109 (23-300) U/L Urine Color Yellow Urine Appearance Clear (Clear) Urine pH 6.5 (5.0-8.0) Ur Specific [place] 1.018 (1.001-1.035) Urine Protein 1+ H (Negative) Urine Glucose (UA) Negative (Negative) Urine Ketones 1+ H (Negative) Urine Blood Trace H (Negative) Urine Nitrite Negative (Negative) Urine Bilirubin Negative (Negative) Urine Urobilinogen 2.0 (<2.0) mg/dL Ur Leukocyte Esterase Negative (Negative) Urine RBC <1 (0-5) /hpf Urine WBC 1 (0-5) /hpf Ur Squamous Epith Cells <1 (0-4) /hpf Urine Bacteria Rare H (None) /hpf Hyaline Casts 3 H (0-2) /lpf Urine Mucus Few H (None) /hpf - Radiology Data Radiology results: report reviewed (Did review the imaging and report no acute findings.), image reviewed Disposition Clinical Impression: Intractable vomiting with nausea, Abdominal pain, Dehydration Disposition: ADMITTED IP TO THIS HOSP Condition: Fair Referrals: Sandy Roper MD [Primary Care Provider] - 1-2 days
[2020-02-24 07:58] LABS: Basophils # (A) 0.1 k/uL (0-0.2); Basophils % (A) 1 %; Eosinophils # (A) 0.2 k/uL (0-0.7); Eosinophils % (A) 2 %; HCT 46.6 % (34.0-46.0); Lymphocytes # (A) 2.1 k/uL (1.0-4.8); Lymphocytes % (A) 18 %; MCH 28.6 pg (25.0-35.0); MCHC 34.3 g/dL (31.0-37.0); MCV 83.3 fL (80.0-100.0); Mean Platelet Volume 6.7; Monocytes # (A) 0.5 k/uL (0-1.0); Monocytes % (A) 4 %; Neutrophils # (A) 8.4 k/uL (1.3-7.7); Neutrophils % (A) 74 %; Platelet Count 404 k/uL (150-450); RBC 5.59 m/uL (3.80-5.40); RDW 12.6 % (11.5-15.5); WBC 11.4 k/uL (3.8-10.6)
--- NOTE | 2020-02-24 08:08 | XR ---
EXAMINATION TYPE: XR KUB DATE OF EXAM: 02/24/2020 7:59 AM CLINICAL HISTORY: Abdominal pain. Central to left abdominal pain. TECHNIQUE: Upright images of the abdomen and pelvis were obtained COMPARISON: None. FINDINGS: Nonspecific bowel gas pattern. There is no visceromegaly, pneumoperitoneum, or abnormal daniela cification appreciated. The lung bases are clear. The osseous structures are intact. IMPRESSION: Nonspecific bowel gas pattern.
[2020-02-24 08:12] LABS: Appearance,Urine Clear (Clear); Bacteria,Urine Rare /hpf; Bilirubin,Urine Negative (Negative); Blood,Urine Trace (Negative); Color,Urine Yellow; Glucose,Urine (UA) Negative (Negative); Hyaline Casts,Urine 3 /lpf (0-2); Ketones,Urine 1+ (Negative); Leukocyte Esterase,Urine Negative (Negative); Mucus,Urine Few /hpf; Nitrite,Urine Negative (Negative); PH, Urine 6.5 (5.0-8.0); Protein,Urine 1+ (Negative); RBC,Urine <1 /hpf (0-5); Specific Gravity,Urine 1.018 (1.001-1.035); Squamous Epithelial Cell,Urine <1 /hpf (0-4); WBC,Urine 1 /hpf (0-5)
[2020-02-24 08:26] LABS: ALT 47 U/L (4-34); AST 42 U/L (14-36); African American GFR (CKD) >90 (>60 ml/min/1.73 sqM); Albumin 4.5 g/dL (3.5-5.0); Alkaline Phosphatase 57 U/L (38-126); Amylase 110 U/L (30-110); Anion Gap 8 mmol/L; Blood Urea Nitrogen 10 mg/dL (7-17); Calcium 9.3 mg/dL (8.4-10.2); Carbon Dioxide 27 mmol/L (22-30); Chloride 100 mmol/L (98-107); Creatine Kinase 35 U/L (30-135); Glucose 148 mg/dL (74-99); Non-African American GFR(CKD) >90 (>60 ml/min/1.73 sqM); Potassium 4.1 mmol/L (3.5-5.1); Sodium 135 mmol/L (137-145); Total Bilirubin 0.8 mg/dL (0.2-1.3); Total Protein 7.5 g/dL (6.3-8.2)
[2020-02-24] MEDS ORDERED: HALOPERIDOL LACTATE 5 MG/ML 1 ML VIAL IVP STA (09:05)
[2020-02-24] MEDS ORDERED: HYDROmorphone 1 MG/ML 1 ML SYRINGE IVP STA (09:05)
[2020-02-24] MEDS ORDERED: NALOXONE 0.4 MG/ML 1 ML VIAL IV PRN (10:43)
[2020-02-24] MEDS: SODIUM CHLORIDE 0.9% 1,000 ML IV SCH ×2 (12:25→20:43)
[2020-02-24] MEDS ORDERED: ONDANSETRON 4 MG/2 ML VIAL IVP PRN (12:31)
[2020-02-24] MEDS ORDERED: ACETAMINOPHEN TAB 325 MG TAB PO PRN (12:31)
--- NOTE | 2020-02-24 14:50 | P.HPIM ---
History of Present Illness H&P Date: 02/24/20 39-year-old female with PMH of diabetes mellitus presents the ED for nausea and vomiting. Patient reports intractable nausea and vomiting along with epigastric discomfort since Saturday. She is been unable to tolerate any oral intake. She describes her abdominal discomfort as a constant ache in her stomach. She reports 4-5 episodes in the past 2 years. She has never undergone EGD. She usually correlates her nausea and vomiting to her menstrual cycle. She also smokes 2-3 joints of marijuana daily. She denies any headache, lower extremity edema, fever or chills, cough, chest pain, shortness of breath, palpitations, changes in urination or bowel habits. No changes in appetite or weight. She denies any dizziness, numbness/weakness/tingling of the extremities. In the ED, her vital signs are stable except for BP of 189/92. CBC showed a CBC count of 11.4. CMP showed sodium 135, glucose 148, AST of 42, ALT 47. Urinalysis showed trace blood. Patient is currently on her menstrual cycle. She is admitted for intractable nausea and vomiting with GI on consult. Review of Systems Pertinent positives and negatives as discussed in HPI, a complete review of systems was performed and all other systems are negative. Past Medical History Past Medical History: Diabetes Mellitus Additional Past Medical History / Comment(s): NIDDM type II/diagnosed about 1 year ago, occasional cervical pain/herniated discs, past UTI History of Any Multi-Drug Resistant Organisms: None Reported Additional Past Surgical History / Comment(s): liposuction and abdominoplasty Past Anesthesia/Blood Transfusion Reactions: Previous Problems w/ Anesthesia Additional Past Anesthesia/Blood Transfusion Reaction / Comment(s): Pt takes a long time waking. She has clausterphobia Smoking Status: Former smoker - Past Family History Mother History Unknown: Yes Additional Family Medical History / Comment(s): Mother of unknown causes at the age of 63yrs Father Family Medical History: CVA/TIA, Diabetes Mellitus, Hyperlipidemia, Hypertension Additional Family Medical History / Comment(s): Father is living. Medications and Allergies Home Medications Medication Instructions Recorded Confirmed Type Semaglutide [Rybelsus] 7 mg PO DAILY 02/24/20 02/24/20 History Allergies Allergy/AdvReac Type Severity Reaction Status Date / Time No Known Allergies Allergy Verified 02/24/20 10:27 Physical Exam Vitals: Vital Signs Temp Pulse Resp BP Pulse Ox 02/24/20 10:40 90 18 151/94 98 02/24/20 09:18 156/79 02/24/20 08:32 90 18 189/92 98 02/24/20 07:05 97.0 F L 100 16 181/90 93 L Intake and Output 02/23/20 02/24/20 02/24/20 22:59 06:59 14:59 Other: Weight 97.069 kg General: [non toxic], [no distress], [appears at stated age] Derm: [warm], [dry] Head: [atraumatic], [normocephalic], [symmetric] Eyes: [EOMI], [no lid lag], [anicteric sclera] Mouth: [no lip lesion], [mucus membranes moist] Cardiovascular: [S1S2 reg], [no murmur], [positive posterior tibial pulse bilateral], Lungs: [CTA bilateral], [no rhonchi, no rales] , [no accessory muscle use] Abdominal: [soft], [ nontender to palpation], [no guarding], [no appreciable organomegaly] Ext: [no gross muscle atrophy], [no edema], [no contractures] Neuro: [ CN II-XI grossly intact], [no focal neuro deficits] Psych: [Alert], [oriented], [appropriate affect] Results CBC & Chem 7: 02/24/20 07:28 02/24/20 07:28 Labs: Abnormal Lab Results - Last 24 Hours (Table) 02/24/20 02/24/20 02/24/20 Range/Units 07:28 07:28 07:28 WBC 11.4 H (3.8-10.6) k/uL RBC 5.59 H (3.80-5.40) m/uL Hct 46.6 H (34.0-46.0) % Neutrophils # 8.4 H (1.3-7.7) k/uL Sodium 135 L (137-145) mmol/L Glucose 148 H (74-99) mg/dL AST 42 H (14-36) U/L ALT 47 H (4-34) U/L Urine Protein 1+ H (Negative) Urine Ketones 1+ H (Negative) Urine Blood Trace H (Negative) Urine Bacteria Rare H (None) /hpf Hyaline Casts 3 H (0-2) /lpf Urine Mucus Few H (None) /hpf Thrombosis Risk Factor Assmnt - Choose All That Apply Any of the Below Risk Factors Present?: Yes Each Factor Represents 1 point: Obesity (BMI >25) Other Risk Factors: No Other congenital or acquired thrombophilia - If yes, enter type in comment: No Thrombosis Risk Factor Assessment Total Risk Factor Score: 1 Thrombosis Risk Factor Assessment Level: Low Risk Assessment and Plan Assessment: Intractable nausea and vomiting Transaminitis Leukocytosis Diabetes mellitus Obesity Patient's intractable nausea vomiting is likely related to marijuana intake. Plans: Patient counseled extensively on marijuana cessation. Zofran as needed for nausea or vomiting. Promethazine as needed for nausea or vomiting. Continue Protonix IV twice a day. Continue normal saline at 130 mL/h. Clear liquid diet and advance as tolerated. AST 42, ALT 47. Likely related to fatty liver. Plans: Continue to monitor. Repeat CMP tomorrow morning. Likely reactive. No signs of infection. Plans: Continue to monitor. Repeat CBC tomorrow morning. [id number] glucose 148. Plans: Insulin sliding scale. Regular Accu-Cheks. Hyperglycemia precautions. Plans: Patient would benefit from a structured weight loss program. DVT prophylaxis: [SCD boots] Discussed with: [Patient] Anticipated discharge: [1-2 days] Anticipated discharge place: [Home] A total of [35] minutes was spent on the care of this complex patient more than 50% of the time was spent in counseling and care coordination. Patient names her decision maker if she can't make decisions for herse lf. Patient would like to be full code.
[2020-02-24 16:36] LABS: Glucose,Whole Blood 125 mg/dL (75-99)
[2020-02-24] MEDS: PROMETHAZINE INJ 6.25 MG in SODIUM CHLORIDE 0.9% 50 ML IVPB SCH ×2 (18:03→23:13)
[2020-02-24] MEDS: HYDROmorphone 0.5 MG/0.5 ML SYRINGE IVP PRN (20:51)
[2020-02-24] MEDS: PANTOPRAZOLE 40 MG/10 ML VIAL IV SCH (20:51)
[2020-02-24 20:58] LABS: Glucose,Whole Blood 154 mg/dL (75-99)
[2020-02-24 22:35] VITALS: RESP 18
[2020-02-25] MEDS: HYDROmorphone 0.5 MG/0.5 ML SYRINGE IVP PRN (02:09)
[2020-02-25] MEDS: SODIUM CHLORIDE 0.9% 1,000 ML IV SCH ×2 (02:09→11:32)
[2020-02-25] MEDS ORDERED: cloNIDine HCL 0.2 MG TAB PO PRN (02:51)
[2020-02-25] MEDS: PROMETHAZINE INJ 6.25 MG in SODIUM CHLORIDE 0.9% 50 ML IVPB SCH ×2 (05:50→11:39)
[2020-02-25 06:04] LABS: Glucose,Whole Blood 122 mg/dL (75-99)
--- NOTE | 2020-02-25 07:23 | P.CONS ---
History of Present Illness - Reason for Consult Consult date: 02/24/20 Nausea and vomiting Requesting physician: Efren Heart - Chief Complaint Nausea and vomiting - History of Present Illness 39-year-old female with past medical history of diabetes mellitus who presented to the hospital due to nausea and vomiting. Patient reports multiple episodes of nausea and vomiting with associated epigastric discomfort. The patient has had multiple episodes of similar nature in the past, approximately 4-5 occurring since 2018. She reports decreased oral intake with the episodes and that the nausea and vomiting resulting in dehydration. Episodes started over the weekend and were persistent with approximately 5-10 episodes of vomiting per day. She reports pain she ate or drank would exacerbate the symptoms. She denies any diarrhea with the episode but pain was in the epigastric region as well as the left upper quadrant of her abdomen as described. No history of peptic ulcer disease. The patient does report intermittent reflux but does not take any daily medications for this. She does believe that there is an association of h er symptoms with her menstrual period. On previous presentation to the hospital earlier today month computed tomography scan was performed which was essentially negative. Patient does have a history of daily marijuana use. Review of Systems REVIEW OF SYSTEMS: CONSTITUTIONAL: Denies any fevers, chills, weight change or fatigue. CARDIOVASCULAR: Denies any chest pain, palpitations high or low blood pressures RESPIRATORY: Denies any shortness of breath, hemoptysis or cough. GENITOURINARY: No dysuria or hematuria. MUSCULOSKELETAL: No weakness reported. SKIN: Denies any new rashes or lesions, jaundice or pallor. PSYCHIATRIC: Denies any depression or anxiety. NEUROLOGY: Denies headache, denies any new focal deficits. EARS/NOSE/THROAT: No recent hearing change, congestion, nasal discharge or sore throat. EYES: No pain in eyes, discharge or change in vision. GASTROINTESTINAL: As per HPI. Past Medical History Past Medical History: Diabetes Mellitus Additional Past Medical History / Comment(s): NIDDM type II/diagnosed about 1 year ago, occasional cervical pain/herniated discs, past UTI History of Any Multi-Drug Resistant Organisms: None Reported Additional Past Surgical History / Comment(s): liposuction and abdominoplasty Past Anesthesia/Blood Transfusion Reactions: Previous Problems w/ Anesthesia Additional Past Anesthesia/Blood Transfusion Reaction / Comm: Pt takes a long time waking. She has clausterphobia Smoking Status: Former smoker - Past Family History Mother History Unknown: Yes Additional Family Medical History / Comment(s): Mother of unknown causes at the age of 63yrs Father Family Medical History: CVA/TIA, Diabetes Mellitus, Hyperlipidemia, Hypertension Additional Family Medical History / Comment(s): Father is living. Medications and Allergies Home Medications Medication Instructions Recorded Confirmed Type Semaglutide [Rybelsus] 7 mg PO DAILY 02/24/20 02/24/20 History Allergies Allergy/AdvReac Type Severity Reaction Status Date / Time No Known Allergies Allergy Verified 02/24/20 10:27 Physical Exam Vitals: Vital Signs Temp Pulse Pulse Resp BP BP Pulse Ox 02/24/20 12:31 97.8 F 84 16 158/98 99 02/24/20 10:40 90 18 151/94 98 02/24/20 09:18 156/79 02/24/20 08:32 90 18 189/92 98 02/24/20 07:05 97.0 F L 100 16 181/90 93 L Intake and Output 02/23/20 02/24/20 02/24/20 22:59 06:59 14:59 Other: Voiding Method Toilet Weight 97.069 kg On physical examination, patient appears comfortable in no apparent distress. HEAD: Normocephalic, atraumatic. EYES: No scleral icterus. No conjunctival injection. MOUTH: No lesions, tongue midline. NECK: Trachea midline, no gross abnormalities. CHEST: Clear to auscultation with no wheezing or rhonchi appreciated. HEART: Regular rate and rhythm. ABDOMEN: Soft, obese. Bowel sounds are positive. No organomegaly. No guarding or rigidity. EXTREMITIES: No pedal edema. SKIN: No rashes, no jaundice. NEUROLOGIC: Alert and oriented x3. No focal deficits. Results CBC & Chem 7: 02/24/20 07:28 02/24/20 07:28 Labs: Abnormal Lab Results - Last 24 Hours (Table) 02/24/20 02/24/20 02/24/20 Range/Units 07:28 07:28 07:28 WBC 11.4 H (3.8-10.6) k/uL RBC 5.59 H (3.80-5.40) m/uL Hct 46.6 H (34.0-46.0) % Neutrophils # 8.4 H (1.3-7.7) k/uL Sodium 135 L (137-145) mmol/L Glucose 148 H (74-99) mg/dL AST 42 H (14-36) U/L ALT 47 H (4-34) U/L Urine Protein 1+ H (Negative) Urine Ketones 1+ H (Negative) Urine Blood Trace H (Negative) Urine Bacteria Rare H (None) /hpf Hyaline Casts 3 H (0-2) /lpf Urine Mucus Few H (None) /hpf Abdominal x-ray: report reviewed (KUB x-ray with nonspecific bowel gas pattern) Assessment and Plan (1) Intractable vomiting with nausea Narrative/Plan: 39-year-old female presented to the hospital with intractable nausea and vomiting. Multiple episodes requiring presentation to the emergency department over the past 2 years. No significant reflux reported. She does report daily marijuana. Unclear etiology of symptoms may be related to cannabinoid hyperemesis syndrome, uncontrolled reflux, idiopathic gastroparesis or other etiology. Current Visit: Yes Status: Acute Code(s): R11.2 - NAUSEA WITH VOMITING, UNSPECIFIED SNOMED Code(s): 975682645 (2) Abdominal pain Current Visit: Yes Status: Acute Code(s): R10.9 - UNSPECIFIED ABDOMINAL PAIN SNOMED Code(s): 47558084 Plan: Supportive care Clear liquid diet Protonix increased to twice a day Phenergan changed [id number] Continue IV fluid hydration Okay to advance diet tomorrow if symptomatically improved Patient should follow up with GI after discharge Thank you for allowing us to participate in the care of the patient
[2020-02-25 07:29] LABS: Basophils # (A) 0.1 k/uL (0-0.2); Basophils % (A) 1 %; Eosinophils # (A) 0.3 k/uL (0-0.7); Eosinophils % (A) 3 %; HCT 44.4 % (34.0-46.0); HGB 14.9 gm/dL (11.4-16.0); Lymphocytes # (A) 2.6 k/uL (1.0-4.8); Lymphocytes % (A) 33 %; MCH 28.4 pg (25.0-35.0); MCHC 33.5 g/dL (31.0-37.0); Mean Platelet Volume 6.7; Monocytes # (A) 0.4 k/uL (0-1.0); Monocytes % (A) 5 %; Neutrophils # (A) 4.4 k/uL (1.3-7.7); Neutrophils % (A) 55 %; Platelet Count 338 k/uL (150-450); RBC 5.22 m/uL (3.80-5.40); RDW 12.8 % (11.5-15.5); WBC 7.9 k/uL (3.8-10.6)
[2020-02-25 07:41] VITALS: TEMP 97.9
[2020-02-25 07:47] LABS: ALT 76 U/L (4-34); AST 55 U/L (14-36); African American GFR (CKD) >90 (>60 ml/min/1.73 sqM); Albumin 3.9 g/dL (3.5-5.0); Alkaline Phosphatase 54 U/L (38-126); Anion Gap 6 mmol/L; Blood Urea Nitrogen 3 mg/dL (7-17); Calcium 8.6 mg/dL (8.4-10.2); Carbon Dioxide 26 mmol/L (22-30); Chloride 103 mmol/L (98-107); Glucose 118 mg/dL (74-99); Non-African American GFR(CKD) >90 (>60 ml/min/1.73 sqM); Sodium 135 mmol/L (137-145); Total Bilirubin 0.6 mg/dL (0.2-1.3); Total Protein 6.8 g/dL (6.3-8.2)
[2020-02-25] MEDS: PANTOPRAZOLE 40 MG/10 ML VIAL IV SCH (08:08)
[2020-02-25] MEDS ORDERED: PANTOPRAZOLE 40 MG/10 ML VIAL IV SCH (09:00)
[2020-02-25 10:08] VITALS: BP 105/71; PULSE 81
[2020-02-25 11:35] VITALS: BMI 34.5
[2020-02-25 11:45] LABS: Glucose,Whole Blood 134 mg/dL (75-99)
--- NOTE | 2020-02-25 12:00 | P.PN ---
Subjective Progress Note Date: 02/25/20 Principal diagnosis: Nausea and vomiting This is a 39-year-old white female with past medical history of diabetes mellitus who presented to the hospital due to nausea and vomiting. She reported multiple episodes of nausea and vomiting with associated epigastric discomfort. She's had multiple episodes in the past that have been similar Gen. he states that they are around her menstrual cycle. She also states that she is a daily marijuana use. She states she has intermittent acid reflux. Patient states her nausea and vomiting has improved as well as her abdominal pain. She's been on a clear liquid diet. She denies any hematemesis or melena. The patient has mild elevation in her AST and ALT. She denies any prior history of liver disease. Objective - Vital Signs Vital signs: Vital Signs Temp 97.9 F 02/25/20 07:40 Pulse 81 02/25/20 10:08 Resp 18 02/25/20 10:08 BP 105/71 02/25/20 10:08 Pulse Ox 95 02/25/20 07:40 Intake & Output 02/24/20 02/25/20 02/25/20 18:59 06:59 18:59 Intake Total 1340 1980 Balance 1340 1980 Weight 97.069 kg 97.069 kg Intake: Intake, IV Titration 1090 1530 Amount Promethazine Inj 6.25 mg 50 100 In Sodium Chloride 0.9% 50 ml @ 200 mls/hr IVPB Q6HR PABLO Rx#:[id number] Sodium Chloride 0.9% 1, 1040 1430 000 ml @ 130 mls/hr IV . Q7H42M PABLO Rx#:[id number] Oral 250 450 Other: Voiding Method Toilet Toilet Toilet # Voids 1 1 4 - Exam General appearance: The patient is alert, oriented, in no acute distress. Obese. HET: Head is normocephalic and atraumatic. Conjunctiva pink. Sclera and icteric. Neck: Supple without lymphadenopathy. Abdomen: Soft, obese, nontender, nondistended with bowel sounds. No guarding or rigidity. Extremities: Normal skin color and turgor. No pedal edema Neurological: No focal deficits. Alert and oriented 3. - Labs CBC & Chem 7: 02/25/20 06:52 02/25/20 06:52 Labs: Abnormal Lab Results - Last 24 Hours (Table) 02/24/20 02/24/20 02/25/20 Range/Units 16:35 20:56 06:03 Sodium (137-145) mmol/L BUN (7-17) mg/dL Glucose (74-99) mg/dL POC Glucose (mg/dL) 125 H 154 H 122 H (75-99) mg/dL AST (14-36) U/L ALT (4-34) U/L 02/25/20 02/25/20 Range/Units 06:52 11:42 Sodium 135 L (137-145) mmol/L BUN 3 L (7-17) mg/dL Glucose 118 H (74-99) mg/dL POC Glucose (mg/dL) 134 H (75-99) mg/dL AST 55 H (14-36) U/L ALT 76 H (4-34) U/L Assessment and Plan (1) Intractable vomiting with nausea Narrative/Plan: Narrative/Plan: 39-year-old female presented to the hospital with intractable nausea and vomiting. Multiple episodes requiring presentation to the emergency department over the past 2 years. No significant reflux reported. She does report daily marijuana. Unclear etiology of symptoms may be related to cannabinoid hyperemesis syndrome, uncontrolled reflux, idiopathic gastroparesis or other etiology. Current Visit: Yes Status: Acute Code(s): R11.2 - NAUSEA WITH VOMITING, UNSPECIFIED SNOMED Code(s): 907096190 (2) Abdominal pain Current Visit: Yes Status: Acute Code(s): R10.9 - UNSPECIFIED ABDOMINAL PAIN SNOMED Code(s): 50735594 (3) Elevated transaminase level Narrative/Plan: Mild elevation of AST and ALT. Patient likely has component of fatty liver disease. CT of abdomen reports no abnormal findings. Can continue to follow-up in the office to follow trending liver enzymes. Current Visit: Yes Status: Acute Code(s): R74.01 - SNOMED Code(s): 011536392 Plan: Supportive care Advance to full liquid diet Protonix increased to twice a day Phenergan changed [id number] Continue IV fluid hydration Patient should follow up with GI after discharge Thank you for allowing us to participate in the care of the patient The impression and plan of care has been dictated as directed. I performed a history and examination of this patient, discussed the same with the dictator. I agree with the dictator's note ,documented as a scribe. Any additional findings or plans will be noted.
--- NOTE | 2020-02-25 15:46 | P.DS ---
Providers Date of admission: 02/24/20 10:43 Expected date of discharge: 02/25/20 Attending physician: Efren Heart MD Consults: 02/24/20 10:45 Consult Physician Routine Consulting Provider: Mariposa Antunez Consult Reason/Comments: Intractable nausea vomiting Do you want consulting provider notified?: Yes Primary care physician: [facility] Course: 39-year-old female with PMH of diabetes mellitus presents the ED for nausea and vomiting. Patient reports intractable nausea and vomiting along with epigastric discomfort since Saturday. She is been unable to tolerate any oral intake. She describes her abdominal discomfort as a constant ache in her stomach. She reports 4-5 episodes in the past 2 years. She has never undergone EGD. She usually correlates her nausea and vomiting to her menstrual cycle. She also smokes 2-3 joints of marijuana daily. She denies any headache, lower extremity edema, fever or chills, cough, chest pain, shortness of breath, palpitations, changes in urination or bowel habits. No changes in appetite or weight. She denies any dizziness, numbness/weakness/tingling of the extremities. In the ED, her vital signs are stable except for BP of 189/92. CBC showed a CBC count of 11.4. CMP showed sodium 135, glucose 148, AST of 42, ALT 47. Urinalysis showed trace blood. Patient is currently on her menstrual cycle. She is admitted for intractable nausea and vomiting with GI on consult. Intractable nausea vomiting thought to be related to marijuana intake. She was counseled extensively on marijuana cessation. she was given Zofran and promethazine as needed for nausea or vomiting. She was started on Protonix IV twice a day. She was hydrated with normal saline. Her symptoms improved overnight and she was able to tolerate oral intake the morning of discharge. She did have elevated liver enzymes that was thought to be diet related. She was advised to follow-up with PCP for further workup and management. She had a leukocytosis that resolved on day 2 of admission. Her diabetes was treated with insulin sliding scale and regular Accu-Cheks. Patient was seen and examined this morning. No acute events overnight. Patient reports significant improvement in her nausea and vomiting. Complains of her stomach feeling sore. She denies any chest, shortness breath or palpitations. Known fever or chills. Tolerating oral intake well. General: [non toxic], [no distress], [appears at stated age] Derm: [warm], [dry] Head: [atraumatic], [normocephalic], [symmetric] Eyes: [EOMI], [no lid lag], [anicteric sclera] Mouth: [no lip lesion], [mucus membranes moist] Cardiovascular: [S1S2 reg], [no murmur], [positive posterior tibial pulse bilateral], Lungs: [CTA bilateral], [no rhonchi, no rales] , [no accessory muscle use] Abdominal: [soft], [ nontender to palpation], [no guarding], [no appreciable organomegaly] Ext: [no gross muscle atrophy], [no edema], [no contractures] Neuro: [no focal neuro deficits] Psych: [Alert], [oriented], [appropriate affect] Intractable nausea and vomiting Transaminitis Diabetes mellitus Obesity Patient's intractable nausea vomiting is likely related to marijuana intake. Plans: Patient counseled extensively on marijuana cessation. continue Protonix by mouth. AST 42-55, ALT 47-76. Likely related to fatty liver. Plans: Follow-up PCP for further workup and management. [id number] glucose 134. Plans: Insulin sliding scale. Regular Accu-Cheks. Hyperglycemia precautions. Plans: Patient would benefit from a structured weight loss program. DVT prophylaxis: [SCD boots] Discussed with: [Patient] Anticipated discharge: [1-2 days] Anticipated discharge place: [Home] A total of [35] minutes was spent on the care of this complex patient more than 50% of the time was spent in counseling and care coordination. Patient names her decision maker if she can't make decisions for her self. Patient would like to be full code. Pertinent Studies: KUB Patient Condition at Discharge: Stable Plan - Discharge Summary Discharge Rx Participant: No New Discharge Prescriptions: New Pantoprazole [Protonix] 40 mg PO AC-BRKFST #30 tablet. Continue Semaglutide [Rybelsus] 7 mg PO DAILY Discharge Medication List Semaglutide [Rybelsus] 7 mg PO DAILY 02/24/20 [History] Pantoprazole [Protonix] 40 mg PO AC-BRKFST #30 tablet. 02/25/20 [Rx] Follow up Appointment(s)/Referral(s): Sandy Roper MD [Primary Care Provider] - 1-2 days (SaturdayMarch 14 at 3:15) Charly Dougherty MD [STAFF PHYSICIAN] - 1 Week (April 07 at 3pm) Patient Instructions/Handouts: Pantoprazole (By mouth), Dehydration (DC), Acute Nausea and Vomiting (DC), Acute Abdominal Pain (DC) Activity/Diet/Wound Care/Special Instructions: Diet: GI soft FU PCP within 3 days. FU GI within 1 week. Stop marijuana use. Discharge Disposition: HOME SELF-CARE
[2020-02-25] MEDS ORDERED: PANTOPRAZOLE 40 MG TABLET PO SCH (17:30)
== END 2020-02-25 13:51 | disposition home or self-care (01) ==
LOC: EC 07:04 → 1SOBS 10:43
PROVIDERS: ADMIT Family Medicine; ATTEND Family Medicine
DX: R11.2 Nausea with vomiting, unspecified (principal); R53.1 Weakness; R10.13 Epigastric pain; R10.12 Left upper quadrant pain; R74.01 Elevation of levels of liver transaminase levels; D72.829 Elevated white blood cell count, unspecified; E11.9 Type 2 diabetes mellitus without complications; E66.9 Obesity, unspecified; M50.20 Other cervical disc displacement, unspecified cervical region; K21.9 Gastro-esophageal reflux disease without esophagitis; F40.240 Claustrophobia; Z71.51 Drug abuse counseling and surveillance of drug abuser; Z79.899 Other long term (current) drug therapy; Z98.890 Other specified postprocedural states; Z87.891 Personal history of nicotine dependence; Z68.34 Body mass index [BMI] 34.0-34.9, adult; Z87.440 Personal history of urinary (tract) infections; Z91.89 Other specified personal risk factors, not elsewhere classified; Z82.3 Family history of stroke; Z83.3 Family history of diabetes mellitus; Z83.438 Family history of other disorder of lipoprotein metabolism and other lipidemia; Z82.49 Family history of ischemic heart disease and other diseases of the circulatory system
CPT/HCPCS: 96361 ×3; 96365; 96366; 96375 ×2; 96376 ×2; 99285; 36415; 80053 ×2; 82150; 82550; 83690; 85025 ×2; 81001; 74018; G0378 ×2; J1630; J2550 ×2; J2765; J2405; J1170 ×3; C9113 ×2

== ENCOUNTER 2020-05-24 06:57 | Emergency (ER) | payer BC ==
[2020-05-24 07:07] VITALS: BP 157/107; PULSE 100; RESP 22; TEMP 98.2
[2020-05-24] MEDS ORDERED: SODIUM CHLORIDE 0.9% 2,000 ML IV STA (07:26)
[2020-05-24] MEDS ORDERED: HALOPERIDOL LACTATE 5 MG/ML 1 ML VIAL IVP STA (07:28)
[2020-05-24] MEDS ORDERED: CAPSAICIN 0.025% CREAM 60 GM TUBE TOPICAL STA (07:30)
[2020-05-24] MEDS ORDERED: PROCHLORPERAZINE INJ 10 MG/2 ML VIAL IVP STA (07:31)
[2020-05-24 07:58] LABS: Basophils # (A) 0.2 k/uL (0-0.2); Basophils % (A) 1 %; Eosinophils # (A) 0.1 k/uL (0-0.7); Eosinophils % (A) 1 %; HCT 44.9 % (34.0-46.0); HGB 15.6 gm/dL (11.4-16.0); Lymphocytes # (A) 1.8 k/uL (1.0-4.8); Lymphocytes % (A) 10 %; MCH 28.3 pg (25.0-35.0); MCHC 34.6 g/dL (31.0-37.0); MCV 81.7 fL (80.0-100.0); Mean Platelet Volume 6.4; Monocytes # (A) 0.7 k/uL (0-1.0); Monocytes % (A) 4 %; Neutrophils # (A) 15.5 k/uL (1.3-7.7); Neutrophils % (A) 84 %; Platelet Count 444 k/uL (150-450); RBC 5.49 m/uL (3.80-5.40); RDW 12.8 % (11.5-15.5); WBC 18.4 k/uL (3.8-10.6)
[2020-05-24 08:06] LABS: ALT 19 U/L (4-34); AST 19 U/L (14-36); African American GFR (CKD) >90 (>60 ml/min/1.73 sqM); Albumin 4.8 g/dL (3.5-5.0); Alkaline Phosphatase 55 U/L (38-126); Anion Gap 10 mmol/L; Blood Urea Nitrogen 15 mg/dL (7-17); Calcium 10.1 mg/dL (8.4-10.2); Carbon Dioxide 29 mmol/L (22-30); Chloride 96 mmol/L (98-107); Glucose 186 mg/dL (74-99); Lipase 103 U/L (23-300); Non-African American GFR(CKD) >90 (>60 ml/min/1.73 sqM); Potassium 3.9 mmol/L (3.5-5.1); Sodium 135 mmol/L (137-145); Total Bilirubin 0.9 mg/dL (0.2-1.3); Total Protein 8.2 g/dL (6.3-8.2)
[2020-05-24 08:09] LABS: Appearance,Urine Clear (Clear); Bacteria,Urine Rare /hpf; Bilirubin,Urine Negative (Negative); Blood,Urine Negative (Negative); Color,Urine Yellow; Glucose,Urine (UA) Negative (Negative); Hyaline Casts,Urine 7 /lpf (0-2); Ketones,Urine 4+ (Negative); Leukocyte Esterase,Urine Negative (Negative); Mucus,Urine Moderate /hpf; Nitrite,Urine Negative (Negative); PH, Urine 8.5 (5.0-8.0); Protein,Urine 2+ (Negative); RBC,Urine 1 /hpf (0-5); Specific Gravity,Urine 1.027 (1.001-1.035); Squamous Epithelial Cell,Urine 4 /hpf (0-4); Urobilinogen,Urine <2.0 mg/dL (<2.0); WBC,Urine 1 /hpf (0-5)
[2020-05-24] MEDS ORDERED: LIDOCAINE VISCOUS 2% 15 ML CUP MUCOUS MEM ONE (08:11)
[2020-05-24] MEDS ORDERED: BENZOCAINE/MENTHOL LOZENG 1 EACH LOZENGE MUCOUS MEM STA (09:29)
[2020-05-24] MEDS ORDERED: DEXAMETHASONE SOD PHOSPHATE 10 MG/ML 1 ML VIAL IV STA (09:29)
--- NOTE | 2020-05-24 09:31 | ED ---
Abdominal Pain HPI - General Chief Complaint: Abdominal Pain Stated Complaint: Abd Pain, Vomiting Time Seen by Provider: 05/24/20 07:09 Source: patient Mode of arrival: ambulatory Limitations: no limitations - History of Present Illness Initial Comments: Patient is a 39-year-old female past medical history of type 2 diabetes, diet controlled and cyclic vomiting syndrome who presents emergency Department with reported nausea and vomiting. Reports that her symptoms started yesterday. She has been smoking marijuana recently and states that she knows that this is the culprit of her symptoms. States she's had numerous episodes of nausea and vomiting to the point where she is not having blood streaking in her emesis. She admits to a sore throat. Patient has right upper quadrant abdominal pain. Admits that hot baths make her symptoms improve. She attempted to look for her capsacin cream at home however she couldn't find it. She denies any fevers or chills. No recent travel. No sick contacts with similar symptoms. Denies any chest pain or shortness of breath. No changes in her bowel or bladder habits. No other alleviating, precipitating or modifying factors - Related Data Home Medications Medication Instructions Recorded Confirmed Citalopram Hydrobromide [CeleXA] 10 mg PO DAILY 05/24/20 05/24/20 amLODIPine BESYLATE/BENAZEPRIL 1 cap PO DAILY 05/24/20 05/24/20 [Lotrel 5-20 MG] Previous Rx's Medication Instructions Recorded Prochlorperazine [Compazine] 10 mg PO Q6H PRN #15 tab 05/24/20 Allergies Allergy/AdvReac Type Severity Reaction Status Date / Time No Known Allergies Allergy Verified 05/24/20 08:58 Review of Systems ROS Statement: Those systems with pertinent positive or pertinent negative responses have been documented in the HPI. ROS Other: All systems not noted in ROS Statement are negative. Past Medical History Past Medical History: Diabetes Mellitus Additional Past Medical History / Comment(s): NIDDM type II/diagnosed about 1 year ago, occasional cervical pain/herniated discs, past UTI History of Any Multi-Drug Resistant Organisms: None Reported Additional Past Surgical History / Comment(s): liposuction and abdominoplasty Past Anesthesia/Blood Transfusion Reactions: Previous Problems w/ Anesthesia Additional Past Anesthesia/Blood Transfusion Reaction / Comment(s): Pt takes a long time waking. She has clausterphobia Past Psychological History: No Psychological Hx Reported Smoking Status: Former smoker Past Alcohol Use History: None Reported Past Drug Use History: None Reported - Past Family History Mother History Unknown: Yes Additional Family Medical History / Comment(s): Mother of unknown causes at the age of 63yrs Father Family Medical History: CVA/TIA, Diabetes Mellitus, Hyperlipidemia, Hypertension Additional Family Medical History / Comment(s): Father is living. General Exam Limitations: no limitations Course Vital Signs 05/24/20 07:02 Temperature 98.2 F Pulse Rate 100 Respiratory 22 Rate Blood Pressure 157/107 O2 Sat by Pulse 97 Oximetry Medical Decision Making - Medical Decision Making Arrival patient is placed into room 23. A thorough history and physical exam was performed. Peripheral IV is established and the patient is given a 2 L bolus of normal saline. She is also given a dose of Compazine and Haldol. Capsaicin cream ordered for her abdomen. She was given viscous I can for her sore throat. Laboratory studies are conducted and reviewed. Demonstrate a white blood cell count of 18.4. Lactic acid is 2.2. Glucose 186. Urinalysis demonstrates rare bacteria with moderate mucus. She does have 4+ ketones. Patient is reevaluated and reports to improvement in her symptoms. Continues to complain of a sore throat and therefore she is given Cepacol lozenge and a dose of Decadron. Patient reports to normally very well-controlled sugars and therefore she will be given one dose of steroids. Patient has not had any further emesis while in the emergency room. She takes that she feels comfortable going home at this time. Patient will be given the Station cream. Hydrate the patient for a prescription of Compazine. Take the medications as directed. She reports that Zofran does not work for her. She is to follow up with the GI doctor. Recommended marijuana cessation. Should patient have any new or worsening symptoms she should return to the emergency room. Patient was discharged home in stable condition - Lab Data Result diagrams: 05/24/20 07:47 05/24/20 07:47 Lab Results 05/24/20 05/24/20 05/24/20 Range/Units 07:47 07:47 07:47 WBC 18.4 H (3.8-10.6) k/uL RBC 5.49 H (3.80-5.40) m/uL Hgb 15.6 (11.4-16.0) gm/dL Hct 44.9 (34.0-46.0) % MCV 81.7 (80.0-100.0) fL MCH 28.3 (25.0-35.0) pg MCHC 34.6 (31.0-37.0) g/dL RDW 12.8 (11.5-15.5) % Plt Count 444 (150-450) k/uL MPV 6.4 Neutrophils % 84 % Lymphocytes % 10 % Monocytes % 4 % Eosinophils % 1 % Basophils % 1 % Neutrophils # 15.5 H (1.3-7.7) k/uL Lymphocytes # 1.8 (1.0-4.8) k/uL Monocytes # 0.7 (0-1.0) k/uL Eosinophils # 0.1 (0-0.7) k/uL Basophils # 0.2 (0-0.2) k/uL Sodium 135 L (137-145) mmol/L Potassium 3.9 (3.5-5.1) mmol/L Chloride 96 L (98-107) mmol/L Carbon Dioxide 29 (22-30) mmol/L Anion Gap 10 mmol/L BUN 15 (7-17) mg/dL Creatinine 0.62 (0.52-1.04) mg/dL Est GFR (CKD-EPI)AfAm >90 (>60 ml/min/1.73 sqM) Est GFR (CKD-EPI)NonAf >90 (>60 ml/min/1.73 sqM) Glucose 186 H (74-99) mg/dL Lactic Ac Sepsis Rflx Plasma Lactic Acid Vamsi 2.2 H* (0.7-2.0) mmol/L Calcium 10.1 (8.4-10.2) mg/dL Total Bilirubin 0.9 (0.2-1.3) mg/dL AST 19 (14-36) U/L ALT 19 (4-34) U/L Alkaline Phosphatase 55 (38-126) U/L Total Protein 8.2 (6.3-8.2) g/dL Albumin 4.8 (3.5-5.0) g/dL Lipase 103 (23-300) U/L Urine Color Urine Appearance (Clear) Urine pH (5.0-8.0) Ur Specific [place] (1.001-1.035) Urine Protein (Negative) Urine Glucose (UA) (Negative) Urine Ketones (Negative) Urine Blood (Negative) Urine Nitrite (Negative) Urine Bilirubin (Negative) Urine Urobilinogen (<2.0) mg/dL Ur Leukocyte Esterase (Negative) Urine RBC (0-5) /hpf Urine WBC (0-5) /hpf Ur Squamous Epith Cells (0-4) /hpf Urine Bacteria (None) /hpf Hyaline Casts (0-2) /lpf Urine Mucus (None) /hpf Urine HCG, Qual (Not Detectd) 05/24/20 05/24/20 05/24/20 Range/Units 08:00 08:00 08:32 WBC (3.8-10.6) k/uL RBC (3.80-5.40) m/uL Hgb (11.4-16.0) gm/dL Hct (34.0-46.0) % MCV (80.0-100.0) fL MCH (25.0-35.0) pg MCHC (31.0-37.0) g/dL RDW (11.5-15.5) % Plt Count (150-450) k/uL MPV Neutrophils % % Lymphocytes % % Monocytes % % Eosinophils % % Basophils % % Neutrophils # (1.3-7.7) k/uL Lymphocytes # (1.0-4.8) k/uL Monocytes # (0-1.0) k/uL Eosinophils # (0-0.7) k/uL Basophils # (0-0.2) k/uL Sodium (137-145) mmol/L Potassium (3.5-5.1) mmol/L Chloride (98-107) mmol/L Carbon Dioxide (22-30) mmol/L Anion Gap mmol/L BUN (7-17) mg/dL Creatinine (0.52-1.04) mg/dL Est GFR (CKD-EPI)AfAm (>60 ml/min/1.73 sqM) Est GFR (CKD-EPI)NonAf (>60 ml/min/1.73 sqM) Glucose (74-99) mg/dL Lactic Ac Sepsis Rflx Y Plasma Lactic Acid Vamsi (0.7-2.0) mmol/L Calcium (8.4-10.2) mg/dL Total Bilirubin (0.2-1.3) mg/dL AST (14-36) U/L ALT (4-34) U/L Alkaline Phosphatase (38-126) U/L Total Protein (6.3-8.2) g/dL Albumin (3.5-5.0) g/dL Lipase (23-300) U/L Urine Color Yellow Urine Appearance Clear (Clear) Urine pH 8.5 H (5.0-8.0) Ur Specific [place] 1.027 (1.001-1.035) Urine Protein 2+ H (Negative) Urine Glucose (UA) Negative (Negative) Urine Ketones 4+ H (Negative) Urine Blood Negative (Negative) Urine Nitrite Negative (Negative) Urine Bilirubin Negative (Negative) Urine Urobilinogen <2.0 (<2.0) mg/dL Ur Leukocyte Esterase Negative (Negative) Urine RBC 1 (0-5) /hpf Urine WBC 1 (0-5) /hpf Ur Squamous Epith Cells 4 (0-4) /hpf Urine Bacteria Rare H (None) /hpf Hyaline Casts 7 H (0-2) /lpf Urine Mucus Moderate H (None) /hpf Urine HCG, Qual Not Detected (Not Detectd) - EKG Data EKG Comments: EKG demonstrates normal sinus rhythm with a ventricular rate of 92. Current 148. QRS 86. QTC 469. No acute ST segment elevations or depressions concerning for ischemic changes Disposition Clinical Impression: Intractable vomiting with nausea, Dehydration, Cyclic vomiting syndrome Disposition: HOME SELF-CARE Condition: Stable Instructions (If sedation given, give patient instructions): Cyclic Vomiting Syndrome (ED) Additional Instructions: Please follow up with your PCP in 2-4 days. Use the Capsacin cream and antinausea medication as directed. Follow up with the GI doctor. Return to the ED for any new or worsening symptoms. Prescriptions: Prochlorperazine [Compazine] 10 mg PO Q6H PRN #15 tab PRN Reason: Nausea Is patient prescribed a controlled substance at d/c from ED?: No Referrals: Sandy Roper MD [Primary Care Provider] - 1-2 days Mariposa Antunez MD [STAFF PHYSICIAN] - 1-2 days Time of Disposition: 09:31
== END 2020-05-24 09:44 | disposition home or self-care (01) ==
LOC: EC 06:57
DX: E86.0 Dehydration (principal); R11.15 Cyclical vomiting syndrome unrelated to migraine; E11.9 Type 2 diabetes mellitus without complications; Z79.899 Other long term (current) drug therapy; Z87.891 Personal history of nicotine dependence
CPT/HCPCS: 36415; 93005; 80053; 83605; 83690; 85025; 81001; 81025; 99284; 96374; 96375 ×2; 96361 ×2; J0780; J1630; J1100

== ENCOUNTER 2020-09-10 06:20 | Emergency (ER) | payer BC ==
[2020-09-10 06:27] VITALS: BP 149/96; PULSE 113; RESP 22; TEMP 99.3
[2020-09-10] MEDS ORDERED: METOCLOPRAMIDE 5 MG/ML 2 ML VIAL IVP STA (06:38)
[2020-09-10] MEDS ORDERED: HYDROmorphone 0.5 MG/0.5 ML SYRINGE IVP STA (06:38)
[2020-09-10] MEDS ORDERED: diphenhydrAMINE 50 MG/ML 1 ML VIAL IVP STA (06:38)
[2020-09-10] MEDS ORDERED: SODIUM CHLORIDE 0.9% 1,000 ML IV STA ×2 (06:38→07:23)
--- NOTE | 2020-09-10 06:51 | ED ---
General Adult HPI - General Chief complaint: Abdominal Pain Stated complaint: Vomiting,ABD Pain Time Seen by Provider: 09/10/20 06:28 Source: patient, family, RN notes reviewed Mode of arrival: ambulatory Limitations: no limitations - History of Present Illness Initial comments: 39-year-old female with a past medical history of NIDDM type II, hypertension presents to the emergency room for a chief, abdominal pain. Patient states this pain started yesterday. States she is nauseous and vomiting as well. States it is around her entire abdomen. Patient states she has had this exact pain several times before and it is hyperemesis cannabinoid Syndrome. States that she has been trying to cut back on smoking marijuana but does continue to do so. Patient denies fevers.Patient has no other complaints at this time including shortness of breath, chest pain, headache, or visual changes. - Related Data Home Medications Medication Instructions Recorded Confirmed Citalopram Hydrobromide [CeleXA] 10 mg PO DAILY 05/24/20 05/24/20 amLODIPine BESYLATE/BENAZEPRIL 1 cap PO DAILY 05/24/20 05/24/20 [Lotrel 5-20 MG] Previous Rx's Medication Instructions Recorded Prochlorperazine [Compazine] 10 mg PO Q6H PRN #15 tab 05/24/20 Ondansetron [Zofran ODT] 4 mg PO Q8HR PRN #15 tab 09/10/20 Allergies Allergy/AdvReac Type Severity Reaction Status Date / Time No Known Allergies Allergy Verified 09/10/20 06:26 Review of Systems ROS Statement: Those systems with pertinent positive or pertinent negative responses have been documented in the HPI. ROS Other: All systems not noted in ROS Statement are negative. Past Medical History Past Medical History: Diabetes Mellitus, Hypertension Additional Past Medical History / Comment(s): NIDDM type II/diagnosed about 1 year ago, occasional cervical pain/herniated discs, past UTI History of Any Multi-Drug Resistant Organisms: None Reported Additional Past Surgical History / Comment(s): liposuction and abdominoplasty Past Anesthesia/Blood Transfusion Reactions: Previous Problems w/ Anesthesia Additional Past Anesthesia/Blood Transfusion Reaction / Comment(s): Pt takes a long time waking. She has clausterphobia Past Psychological History: Anxiety Smoking Status: Former smoker Past Alcohol Use History: None Reported Past Drug Use History: Marijuana - Past Family History Mother History Unknown: Yes Additional Family Medical History / Comment(s): Mother of unknown causes at the age of 63yrs Father Family Medical History: CVA/TIA, Diabetes Mellitus, Hyperlipidemia, Hypertension Additional Family Medical History / Comment(s): Father is living. General Exam Limitations: no limitations General appearance: alert, in no apparent distress Head exam: Present: atraumatic, normocephalic, normal inspection Eye exam: Present: normal appearance ENT exam: Present: normal exam, mucous membranes moist Neck exam: Present: normal inspection, full ROM. Absent: tenderness, meningismus, lymphadenopathy Respiratory exam: Present: normal lung sounds bilaterally. Absent: respiratory distress, wheezes, rales, rhonchi, stridor Cardiovascular Exam: Present: regular rate, normal rhythm, normal heart sounds. Absent: systolic murmur, diastolic murmur, rubs, gallop, clicks GI/Abdominal exam: Present: soft, normal bowel sounds. Absent: distended, tenderness (no tenderness), guarding, rebound, rigid Course Vital Signs 09/10/20 06:22 Temperature 99.3 F Pulse Rate 113 H Respiratory 22 Rate Blood Pressure 149/96 O2 Sat by Pulse 98 Oximetry Medical Decision Making - Medical Decision Making Vitals are stable. Patient initially tachycardic likely secondary to pain. P hysical exam does not reveal any abdominal tenderness. Patient states she has had these exact symptoms before which were related to hyperemesis cannabis syndrome. CBC does show leukocytosis likely secondary to vomiting. CMP is unremarkable. Urinalysis does show 4+ ketones likely related to dehydration. Patient was given 2 L of fluid. Patient was given pain meds and antiemetics, had significant pertinent symptoms. Patient reevaluated, she is feeling much better. She is sleeping. At this time recommend patient follow up with primary care as she is stable and improved. If she does have to return secondary to pain we will try Haldol which has worked for her in the past. - Lab Data Result diagrams: 09/10/20 06:42 09/10/20 06:42 Lab Results 09/10/20 09/10/20 09/10/20 Range/Units 06:42 06:42 06:42 WBC 16.9 H (3.8-10.6) k/uL RBC 5.20 (3.80-5.40) m/uL Hgb 15.0 (11.4-16.0) gm/dL Hct 42.4 (34.0-46.0) % MCV 81.6 D (80.0-100.0) fL MCH 28.9 (25.0-35.0) pg MCHC 35.4 (31.0-37.0) g/dL RDW 12.8 (11.5-15.5) % Plt Count 487 H (150-450) k/uL MPV 7.0 Neutrophils % 87 % Lymphocytes % 10 % Monocytes % 2 % Eosinophils % 1 % Basophils % 0 % Neutrophils # 14.6 H (1.3-7.7) k/uL Lymphocytes # 1.7 (1.0-4.8) k/uL Monocytes # 0.3 (0-1.0) k/uL Eosinophils # 0.1 (0-0.7) k/uL Basophils # 0.0 (0-0.2) k/uL Sodium 134 L (137-145) mmol/L Potassium 3.9 (3.5-5.1) mmol/L Chloride 99 (98-107) mmol/L Carbon Dioxide 19 L (22-30) mmol/L Anion Gap 16 mmol/L BUN 13 (7-17) mg/dL Creatinine 0.64 (0.52-1.04) mg/dL Est GFR (CKD-EPI)AfAm >90 (>60 ml/min/1.73 sqM) Est GFR (CKD-EPI)NonAf >90 (>60 ml/min/1.73 sqM) Glucose 192 H (74-99) mg/dL Calcium 10.4 H (8.4-10.2) mg/dL Total Bilirubin 0.8 (0.2-1.3) mg/dL AST 23 (14-36) U/L ALT 22 (4-34) U/L Alkaline Phosphatase 64 (38-126) U/L Total Protein 8.4 H (6.3-8.2) g/dL Albumin 5.0 (3.5-5.0) g/dL Amylase 63 (30-110) U/L Lipase 80 (23-300) U/L Urine Color Yellow Urine Appearance Cloudy H (Clear) Urine pH 6.0 (5.0-8.0) Ur Specific [place] 1.032 (1.001-1.035) Urine Protein 3+ H (Negative) Urine Glucose (UA) Trace H (Negative) Urine Ketones 4+ H (Negative) Urine Blood Trace H (Negative) Urine Nitrite Negative (Negative) Urine Bilirubin 1+ H (Negative) Urine Urobilinogen 3.0 (<2.0) mg/dL Ur Leukocyte Esterase Negative (Negative) Urine RBC 2 (0-5) /hpf Urine WBC 3 (0-5) /hpf Ur Squamous Epith Cells 8 H (0-4) /hpf Urine Bacteria Rare H (None) /hpf Cellular Casts 7 (0) /lpf Hyaline Casts 15 H (0-2) /lpf Urine Mucus Many H (None) /hpf Urine HCG, Qual (Not Detectd) 09/10/20 Range/Units 06:42 WBC (3.8-10.6) k/uL RBC (3.80-5.40) m/uL Hgb (11.4-16.0) gm/dL Hct (34.0-46.0) % MCV (80.0-100.0) fL MCH (25.0-35.0) pg MCHC (31.0-37.0) g/dL RDW (11.5-15.5) % Plt Count (150-450) k/uL MPV Neutrophils % % Lymphocytes % % Monocytes % % Eosinophils % % Basophils % % Neutrophils # (1.3-7.7) k/uL Lymphocytes # (1.0-4.8) k/uL Monocytes # (0-1.0) k/uL Eosinophils # (0-0.7) k/uL Basophils # (0-0.2) k/uL Sodium (137-145) mmol/L Potassium (3.5-5.1) mmol/L Chloride (98-107) mmol/L Carbon Dioxide (22-30) mmol/L Anion Gap mmol/L BUN (7-17) mg/dL Creatinine (0.52-1.04) mg/dL Est GFR (CKD-EPI)AfAm (>60 ml/min/1.73 sqM) Est GFR (CKD-EPI)NonAf (>60 ml/min/1.73 sqM) Glucose (74-99) mg/dL Calcium (8.4-10.2) mg/dL Total Bilirubin (0.2-1.3) mg/dL AST (14-36) U/L ALT (4-34) U/L Alkaline Phosphatase (38-126) U/L Total Protein (6.3-8.2) g/dL Albumin (3.5-5.0) g/dL Amylase (30-110) U/L Lipase (23-300) U/L Urine Color Urine Appearance (Clear) Urine pH (5.0-8.0) Ur Specific [place] (1.001-1.035) Urine Protein (Negative) Urine Glucose (UA) (Negative) Urine Ketones (Negative) Urine Blood (Negative) Urine Nitrite (Negative) Urine Bilirubin (Negative) Urine Urobilinogen (<2.0) mg/dL Ur Leukocyte Esterase (Negative) Urine RBC (0-5) /hpf Urine WBC (0-5) /hpf Ur Squamous Epith Cells (0-4) /hpf Urine Bacteria (None) /hpf Cellular Casts (0) /lpf Hyaline Casts (0-2) /lpf Urine Mucus (None) /hpf Urine HCG, Qual Not Detected (Not Detectd) Disposition Clinical Impression: Dehydration, Abdominal pain Disposition: HOME SELF-CARE Condition: Good Instructions (If sedation given, give patient instructions): Abdominal Pain (ED) Additional Instructions: Please drink plenty of fluids. Take Zofran as needed for nausea. Follow-up w ith your doctor in one to 2 days. Return to the emergency room for worsening symptoms. Prescriptions: Ondansetron [Zofran ODT] 4 mg PO Q8HR PRN #15 tab PRN Reason: Nausea Is patient prescribed a controlled substance at d/c from ED?: No Referrals: Sandy Roper MD [Primary Care Provider] - 1-2 days Time of Disposition: 07:52
[2020-09-10 06:58] LABS: Basophils % (A) 0 %; Eosinophils # (A) 0.1 k/uL (0-0.7); Eosinophils % (A) 1 %; HCT 42.4 % (34.0-46.0); Lymphocytes # (A) 1.7 k/uL (1.0-4.8); Lymphocytes % (A) 10 %; MCH 28.9 pg (25.0-35.0); MCHC 35.4 g/dL (31.0-37.0); Monocytes # (A) 0.3 k/uL (0-1.0); Monocytes % (A) 2 %; Neutrophils # (A) 14.6 k/uL (1.3-7.7); Neutrophils % (A) 87 %; Platelet Count 487 k/uL (150-450); RDW 12.8 % (11.5-15.5); WBC 16.9 k/uL (3.8-10.6)
[2020-09-10 07:05] LABS: Appearance,Urine Cloudy (Clear); Bacteria,Urine Rare /hpf; Bilirubin,Urine 1+ (Negative); Blood,Urine Trace (Negative); Cellular Casts,Urine 7 /lpf (0); Color,Urine Yellow; Glucose,Urine (UA) Trace (Negative); Hyaline Casts,Urine 15 /lpf (0-2); Ketones,Urine 4+ (Negative); Leukocyte Esterase,Urine Negative (Negative); Mucus,Urine Many /hpf; Nitrite,Urine Negative (Negative); Protein,Urine 3+ (Negative); RBC,Urine 2 /hpf (0-5); Specific Gravity,Urine 1.032 (1.001-1.035); Squamous Epithelial Cell,Urine 8 /hpf (0-4); WBC,Urine 3 /hpf (0-5)
[2020-09-10 07:11] LABS: MCV 81.6 fL (80.0-100.0)
[2020-09-10 07:22] LABS: ALT 22 U/L (4-34); AST 23 U/L (14-36); African American GFR (CKD) >90 (>60 ml/min/1.73 sqM); Alkaline Phosphatase 64 U/L (38-126); Amylase 63 U/L (30-110); Anion Gap 16 mmol/L; Blood Urea Nitrogen 13 mg/dL (7-17); Calcium 10.4 mg/dL (8.4-10.2); Carbon Dioxide 19 mmol/L (22-30); Chloride 99 mmol/L (98-107); Glucose 192 mg/dL (74-99); Lipase 80 U/L (23-300); Non-African American GFR(CKD) >90 (>60 ml/min/1.73 sqM); Potassium 3.9 mmol/L (3.5-5.1); Sodium 134 mmol/L (137-145); Total Bilirubin 0.8 mg/dL (0.2-1.3); Total Protein 8.4 g/dL (6.3-8.2)
== END 2020-09-10 08:27 | disposition home or self-care (01) ==
LOC: EC 06:20
DX: E86.0 Dehydration (principal); E11.9 Type 2 diabetes mellitus without complications; F12.90 Cannabis use, unspecified, uncomplicated; I10 Essential (primary) hypertension; Z87.891 Personal history of nicotine dependence
CPT/HCPCS: 36415; 80053; 82150; 83690; 85025; 81001; 81025; 99284; 96374; 96375 ×2; 96361 ×2; J1200; J2765; J1170

== ENCOUNTER 2020-09-11 10:18 | Inpatient (IN) | payer BC ==
[2020-09-11] MEDS ORDERED: ONDANSETRON 4 MG/2 ML VIAL IVP STA (10:41)
[2020-09-11] MEDS ORDERED: PANTOPRAZOLE 40 MG/10 ML VIAL IVP STA (10:41)
[2020-09-11] MEDS ORDERED: SODIUM CHLORIDE 0.9% 2,000 ML IV STA (10:41)
[2020-09-11 10:54] LABS: Basophils # (A) 0.1 k/uL (0-0.2); Basophils % (A) 1 %; Eosinophils # (A) 0.1 k/uL (0-0.7); Eosinophils % (A) 1 %; HCT 44.8 % (34.0-46.0); HGB 15.6 gm/dL (11.4-16.0); Lymphocytes # (A) 2.5 k/uL (1.0-4.8); Lymphocytes % (A) 16 %; MCH 28.8 pg (25.0-35.0); MCHC 34.9 g/dL (31.0-37.0); MCV 82.5 fL (80.0-100.0); Mean Platelet Volume 6.6; Monocytes # (A) 0.7 k/uL (0-1.0); Monocytes % (A) 4 %; Neutrophils # (A) 12.2 k/uL (1.3-7.7); Neutrophils % (A) 77 %; Platelet Count 451 k/uL (150-450); RBC 5.43 m/uL (3.80-5.40); RDW 12.7 % (11.5-15.5); WBC 15.8 k/uL (3.8-10.6)
--- NOTE | 2020-09-11 10:55 | ED ---
Abdominal Pain HPI - General Chief Complaint: Abdominal Pain Stated Complaint: ABD PAIN Time Seen by Provider: 09/11/20 10:28 Source: patient Mode of arrival: ambulatory Limitations: no limitations - History of Present Illness Initial Comments: 39-year-old female with history of type 2 diabetes presents to emergency Department with a chief complaint of abdominal pain nausea vomiting. Patient reports she was in the emergency department yesterday and was given symptomatically. Patient reports she has been diagnosed with hyperemesis Thomas syndrome. States she typically smokes marijuana twice per day but has not in the past 2-3 days due to these episodes of vomiting. Patient reports this happens to her several times throughout the year. Patient reports after discharge last night, she continued to have repetitive episodes of vomiting in the sublingual Zofran did not alleviate any of the symptoms. Patient reports epigastric abdominal pain. Denies hematuria, hematochezia or melena. Denies any vaginal symptoms. Denies any back pain chest pain shortness of breath. Denies any fevers or chills. - Related Data Home Medications Medication Instructions Recorded Confirmed amLODIPine BESYLATE/BENAZEPRIL 1 cap PO DAILY 05/24/20 09/11/20 [Lotrel 5-20 MG] Citalopram Hydrobromide [CeleXA] 20 mg PO DAILY 09/11/20 09/11/20 Previous Rx's Medication Instructions Recorded Prochlorperazine [Compazine] 10 mg PO Q6H PRN #15 tab 05/24/20 Ondansetron [Zofran ODT] 4 mg PO Q8HR PRN #15 tab 09/10/20 Allergies Allergy/AdvReac Type Severity Reaction Status Date / Time No Known Allergies Allergy Verified 09/11/20 11:23 Review of Systems ROS Statement: Those systems with pertinent positive or pertinent negative responses have been documented in the HPI. ROS Other: All systems not noted in ROS Statement are negative. Past Medical History Past Medical History: Diabetes Mellitus, Hypertension Additional Past Medical History / Comment(s): NIDDM type II/diagnosed about 1 year ago, occasional cervical pain/herniated discs, past UTI History of Any Multi-Drug Resistant Organisms: None Reported Additional Past Surgical History / Comment(s): liposuction and abdominoplasty Past Anesthesia/Blood Transfusion Reactions: Previous Problems w/ Anesthesia Additional Past Anesthesia/Blood Transfusion Reaction / Comment(s): Pt takes a long time waking. She has clausterphobia Past Psychological History: Anxiety Smoking Status: Former smoker Past Alcohol Use History: None Reported Past Drug Use History: Marijuana - Past Family History Mother History Unknown: Yes Additional Family Medical History / Comment(s): Mother of unknown causes at the age of 63yrs Father Family Medical History: CVA/TIA, Diabetes Mellitus, Hyperlipidemia, Hypertension Additional Family Medical History / Comment(s): Father is living. General Exam Limitations: no limitations General appearance: alert, in no apparent distress, obese Head exam: Present: atraumatic, normocephalic, normal inspection Eye exam: Present: normal appearance, PERRL, EOMI Pupils: Present: normal accommodation ENT exam: Present: normal exam, normal oropharynx, mucous membranes moist Neck exam: Present: normal inspection, full ROM. Absent: lymphadenopathy Respiratory exam: Present: normal lung sounds bilaterally. Absent: respiratory distress Cardiovascular Exam: Present: regular rate, normal rhythm, normal heart sounds. Absent: systolic murmur GI/Abdominal exam: Present: soft, tenderness (Very mild upper abdominal tenderness). Absent: distended, guarding, rebound, rigid Extremities exam: Present: normal inspection, full ROM, normal capillary refill. Absent: tenderness, pedal edema, joint swelling, calf tenderness Back exam: Present: normal inspection, full ROM. Absent: tenderness, CVA tenderness (R), CVA tenderness (L) Neurological exam: Present: alert, oriented X3 Psychiatric exam: Present: normal affect, normal mood Skin exam: Present: warm, dry, intact, normal color Course Vital Signs 09/11/20 10:21 Temperature 98.4 F Pulse Rate 100 Respiratory 16 Rate Blood Pressure 180/90 O2 Sat by Pulse 98 Oximetry Medical Decision Making - Medical Decision Making 39-year-old female presents to the emergency department with chief complaint nausea vomiting abdominal pain. On physical examination, patient does have mild epigastric abdominal tenderness. Patient was evaluated yesterday in the emergency department for same chief complaint. Here, patient was given fluids, antibiotics and analgesia. CBC shows leukocytosis of 15.8, likely reactive secondary to the vomiting. Mild hyperglycemia. Amylase 488. Lipase 3000 which has significantly increased compared to yesterday. Patient appears to have pancreatitis. She reports drinking alcohol occasionally. She will be nothing by mouth. CT of abdomen pelvis reveals a suspected duodenal diverticulum. I spoke with who will admit for further medical management. Case discussed with Dr. Reyes - Lab Data Result diagrams: 09/11/20 10:46 09/11/20 10:46 Lab Results 09/11/20 09/11/20 09/11/20 Range/Units 10:46 10:46 10:46 WBC 15.8 H (3.8-10.6) k/uL RBC 5.43 H (3.80-5.40) m/uL Hgb 15.6 (11.4-16.0) gm/dL Hct 44.8 (34.0-46.0) % MCV 82.5 (80.0-100.0) fL MCH 28.8 (25.0-35.0) pg MCHC 34.9 (31.0-37.0) g/dL RDW 12.7 (11.5-15.5) % Plt Count 451 H (150-450) k/uL MPV 6.6 Neutrophils % 77 % Lymphocytes % 16 % Monocytes % 4 % Eosinophils % 1 % Basophils % 1 % Neutrophils # 12.2 H (1.3-7.7) k/uL Lymphocytes # 2.5 (1.0-4.8) k/uL Monocytes # 0.7 (0-1.0) k/uL Eosinophils # 0.1 (0-0.7) k/uL Basophils # 0.1 (0-0.2) k/uL Sodium (137-145) mmol/L Potassium (3.5-5.1) mmol/L Chloride (98-107) mmol/L Carbon Dioxide (22-30) mmol/L Anion Gap mmol/L BUN (7-17) mg/dL Creatinine (0.52-1.04) mg/dL Est GFR (CKD-EPI)AfAm (>60 ml/min/1.73 sqM) Est GFR (CKD-EPI)NonAf (>60 ml/min/1.73 sqM) Glucose (74-99) mg/dL Calcium (8.4-10.2) mg/dL Total Bilirubin (0.2-1.3) mg/dL AST (14-36) U/L ALT (4-34) U/L Alkaline Phosphatase (38-126) U/L Total Protein (6.3-8.2) g/dL Albumin (3.5-5.0) g/dL Amylase (30-110) U/L Lipase (23-300) U/L Urine Color Yellow Urine Appearance Turbid H (Clear) Urine pH 7.0 (5.0-8.0) Ur Specific [place] 1.008 (1.001-1.035) Urine Protein Trace H (Negative) Urine Glucose (UA) Negative (Negative) Urine Ketones Negative (Negative) Urine Blood Negative (Negative) Urine Nitrite Negative (Negative) Urine Bilirubin Negative (Negative) Urine Urobilinogen <2.0 (<2.0) mg/dL Ur Leukocyte Esterase Negative (Negative) Urine RBC 1 (0-5) /hpf Urine WBC 3 (0-5) /hpf Ur Squamous Epith Cells <1 (0-4) /hpf Amorphous Sediment Moderate H (None) /hpf Urine Mucus Rare H (None) /hpf Urine HCG, Qual Not Detected (Not Detectd) 09/11/20 Range/Units 10:46 WBC (3.8-10.6) k/uL RBC (3.80-5.40) m/uL Hgb (11.4-16.0) gm/dL Hct (34.0-46.0) % MCV (80.0-100.0) fL MCH (25.0-35.0) pg MCHC (31.0-37.0) g/dL RDW (11.5-15.5) % Plt Count (150-450) k/uL MPV Neutrophils % % Lymphocytes % % Monocytes % % Eosinophils % % Basophils % % Neutrophils # (1.3-7.7) k/uL Lymphocytes # (1.0-4.8) k/uL Monocytes # (0-1.0) k/uL Eosinophils # (0-0.7) k/uL Basophils # (0-0.2) k/uL Sodium 132 L (137-145) mmol/L Potassium 3.6 (3.5-5.1) mmol/L Chloride 92 L (98-107) mmol/L Carbon Dioxide 29 (22-30) mmol/L Anion Gap 11 mmol/L BUN 7 (7-17) mg/dL Creatinine 0.63 (0.52-1.04) mg/dL Est GFR (CKD-EPI)AfAm >90 (>60 ml/min/1.73 sqM) Est GFR (CKD-EPI)NonAf >90 (>60 ml/min/1.73 sqM) Glucose 208 H (74-99) mg/dL Calcium 11.2 H (8.4-10.2) mg/dL Total Bilirubin 0.6 (0.2-1.3) mg/dL AST 26 (14-36) U/L ALT 24 (4-34) U/L Alkaline Phosphatase 54 (38-126) U/L Total Protein 7.7 (6.3-8.2) g/dL Albumin 4.5 (3.5-5.0) g/dL Amylase 488 H* (30-110) U/L Lipase 3173 H (23-300) U/L Urine Color Urine Appearance (Clear) Urine pH (5.0-8.0) Ur Specific [place] (1.001-1.035) Urine Protein (Negative) Urine Glucose (UA) (Negative) Urine Ketones (Negative) Urine Blood (Negative) Urine Nitrite (Negative) Urine Bilirubin (Negative) Urine Urobilinogen (<2.0) mg/dL Ur Leukocyte Esterase (Negative) Urine RBC (0-5) /hpf Urine WBC (0-5) /hpf Ur Squamous Epith Cells (0-4) /hpf Amorphous Sediment (None) /hpf Urine Mucus (None) /hpf Urine HCG, Qual (Not Detectd) Disposition Clinical Impression: Pancreatitis, Nausea & vomiting Disposition: ADMITTED IP TO THIS [facility] Condition: Good Is patient prescribed a controlled substance at d/c from ED?: No Referrals: Sandy Roper MD [Primary Care Provider] - 1-2 days Time of Disposition: 12:47
[2020-09-11 11:08] LABS: Amorphous Sediment,Urine Moderate /hpf; Appearance,Urine Turbid (Clear); Bilirubin,Urine Negative (Negative); Blood,Urine Negative (Negative); Color,Urine Yellow; Glucose,Urine (UA) Negative (Negative); Ketones,Urine Negative (Negative); Leukocyte Esterase,Urine Negative (Negative); Mucus,Urine Rare /hpf; Nitrite,Urine Negative (Negative); Protein,Urine Trace (Negative); RBC,Urine 1 /hpf (0-5); Specific Gravity,Urine 1.008 (1.001-1.035); Squamous Epithelial Cell,Urine <1 /hpf (0-4); Urobilinogen,Urine <2.0 mg/dL (<2.0); WBC,Urine 3 /hpf (0-5)
[2020-09-11 11:10] LABS: AST 26 U/L (14-36); African American GFR (CKD) >90 (>60 ml/min/1.73 sqM); Albumin 4.5 g/dL (3.5-5.0); Alkaline Phosphatase 54 U/L (38-126); Anion Gap 11 mmol/L; Blood Urea Nitrogen 7 mg/dL (7-17); Calcium 11.2 mg/dL (8.4-10.2); Carbon Dioxide 29 mmol/L (22-30); Chloride 92 mmol/L (98-107); Glucose 208 mg/dL (74-99); Non-African American GFR(CKD) >90 (>60 ml/min/1.73 sqM); Potassium 3.6 mmol/L (3.5-5.1); Sodium 132 mmol/L (137-145); Total Bilirubin 0.6 mg/dL (0.2-1.3); Total Protein 7.7 g/dL (6.3-8.2)
[2020-09-11 11:17] LABS: ALT 24 U/L (4-34)
[2020-09-11 11:22] LABS: Lipase 3173 U/L (23-300)
[2020-09-11 11:23] LABS: Amylase 488 U/L (30-110)
[2020-09-11] MEDS ORDERED: MORPHINE SULFATE 4 MG/ML SYRINGE IV PRN (11:42)
[2020-09-11] MEDS ORDERED: NALOXONE 0.4 MG/ML 1 ML VIAL IV PRN (11:42)
[2020-09-11] MEDS ORDERED: HYDROmorphone 1 MG/ML 1 ML SYRINGE IVP PRN ×2 (11:42→13:06)
[2020-09-11] MEDS ORDERED: LORazepam 2 MG/ML INJ IV PRN (11:42)
[2020-09-11] MEDS ORDERED: SODIUM CHLORIDE 0.9% 1,000 ML IV SCH (11:45)
--- NOTE | 2020-09-11 12:39 | CT ---
EXAMINATION TYPE: CT abdomen pelvis w con DATE OF EXAM: 09/11/2020 COMPARISON: CT 02/21/2020 HISTORY: Epigastric pain, pancreatitis CT DLP: 1266.9 mGycm Automated exposure control for dose reduction was used. TECHNIQUE: Helical acquisition of images from the lung bases through the pelvis have been completed. CONTRAST: Performed without Oral Contrast and with IV Contrast, patient injected with 100 mL of Isovue 300. FINDINGS: LUNG BASES: No significant abnormality is appreciated. AORTA: No significant abnormality is appreciated. LIVER/GB: Liver is enlarged and shows low attenuation possibly due to hepatic steatosis. PANCREAS: No significant abnormality is seen. SPLEEN: No significant abnormality is seen. ADRENALS: No significant abnormality is seen. KIDNEYS: No significant abnormality is seen. Contrast excretion within the kidneys likely due to marifer ng REPRODUCTIVE ORGANS: Left ovarian cyst measures approximately 2.5 cm BOWEL: Duodenal diverticulum at the head of the pancreas level is suspected. FREE AIR: No Free Air visible. ASCITES: None visible. PELVIC ADENOPATHY: None visualized. RETROPERITONEAL ADENOPATHY: No Retroperitoneal Adenopathy visible. URINARY BLADDER: No significant abnormality is seen. OSSEOUS STRUCTURES: Sclerosis is present at the sacroiliac joints similar to prior exam, correlate f or sacroiliitis. 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 HEPATIC STEATOSIS, HEPATOMEGALY. CORRELATE FOR SACROILIITIS. L EFT OVARIAN CYST.
--- NOTE | 2020-09-11 13:32 | P.HPIM ---
History of Present Illness H&P Date: 09/11/20 Chief Complaint: Abdominal pain This is a 39-year-old female with past medical history noted below who presented to the emergency room with abdominal pain, nausea, and vomiting. Patient said that her symptoms started 3 days ago and is being getting progressively worse. She described the pain as sharp mostly in the epigastric area. Pain is 9 out of 10 in severity. There is no radiation. Patient denies fevers or chills. Patient had her last bowel movement 2 days ago and it was normal. Patient said that she was unable to keep anything down for the past couple of days and been vomiting a lot. She presented to the emergency room yesterday and was treated symptomatically and discharged but returned today with similar symptoms. Patient was evaluated in the ER and was found to have evidence of acute pancreatitis. She'll be admitted to the hospital for further management. Patient denies any history of pancreatitis in the past. Denies any alcohol use. She still has her gallbladder and denies any gallstones in the past. Review of Systems Review of system: 14 points review of systems were obtained and were negative except to what were mentioned in the HPI. Past Medical History Past Medical History: Diabetes Mellitus, Hypertension Additional Past Medical History / Comment(s): NIDDM type II/diagnosed about 1 year ago, occasional cervical pain/herniated discs, past UTI History of Any Multi-Drug Resistant Organisms: None Reported Additional Past Surgical History / Comment(s): liposuction and abdominoplasty Past Anesthesia/Blood Transfusion Reactions: Previous Problems w/ Anesthesia Additional Past Anesthesia/Blood Transfusion Reaction / Comment(s): Pt takes a long time waking. She has clausterphobia Past Psychological History: Anxiety Smoking Status: Former smoker Past Alcohol Use History: None Reported Past Drug Use History: Marijuana - Past Family History Mother History Unknown: Yes Additional Family Medical History / Comment(s): Mother of unknown causes at the age of 63yrs Father Family Medical History: CVA/TIA, Diabetes Mellitus, Hyperlipidemia, Hypertension Additional Family Medical History / Comment(s): Father is living. Medications and Allergies Home Medications Medication Instructions Recorded Confirmed Type Prochlorperazine [Compazine] 10 mg PO Q6H PRN #15 tab 05/24/20 09/11/20 Rx amLODIPine BESYLATE/BENAZEPRIL 1 cap PO DAILY 05/24/20 09/11/20 History [Lotrel 5-20 MG] Ondansetron [Zofran ODT] 4 mg PO Q8HR PRN #15 tab 09/10/20 09/11/20 Rx RX: Citalopram Hydrobromide 20 mg PO DAILY 09/11/20 09/11/20 History [CeleXA] Allergies Allergy/AdvReac Type Severity Reaction Status Date / Time No Known Allergies Allergy Verified 09/11/20 11:23 Physical Exam Vitals: Vital Signs Temp Pulse Resp BP Pulse Ox 09/11/20 10:21 98.4 F 100 16 180/90 98 Intake and Output 09/10/20 09/11/20 09/11/20 22:59 06:59 14:59 Other: Voiding Method Toilet Weight 92.986 kg General: The patient is awake and alert, in no distress Eye: there is normal conjunctiva bilaterally. Neck: The neck is supple, there is no JVD. Cardiovascular: Normal S1-S2, no S3-S4, no murmurs. Respiratory: Lungs clear to auscultation bilaterally Gastrointestinal: Abdomen is soft, there is moderate tenderness to palpation worse in the epigastric area Musculoskeletal: There is no pedal edema. Neurological:. Speech is normal. Skin: Skin is warm and dry Results CBC & Chem 7: 09/11/20 10:46 09/11/20 10:46 Labs: Abnormal Lab Results - Last 24 Hours (Table) 09/11/20 09/11/20 09/11/20 Range/Units 10:46 10:46 10:46 WBC 15.8 H (3.8-10.6) k/uL RBC 5.43 H (3.80-5.40) m/uL Plt Count 451 H (150-450) k/uL Neutrophils # 12.2 H (1.3-7.7) k/uL Sodium 132 L (137-145) mmol/L Chloride 92 L (98-107) mmol/L Glucose 208 H (74-99) mg/dL Calcium 11.2 H (8.4-10.2) mg/dL Amylase 488 H* (30-110) U/L Lipase 3173 H (23-300) U/L Urine Appearance Turbid H (Clear) Urine Protein Trace H (Negative) Amorphous Sediment Moderate H (None) /hpf Urine Mucus Rare H (None) /hpf Assessment and Plan Assessment: This is a 39-year-old female with past medical history noted below who presented to the emergency room with worsening abdominal pain, nausea, and vomiting. Patient was evaluated in the ER and admitted to the hospital for further management of her medical problems noted below. 1. Acute pancreatitis, patient denies any alcohol use. Computed tomography scan of the abdomen and pelvis showed no acute findings. I would obtain ultrasound to assess for any stones. Check triglyceride level. Continue nothing by mouth. Aggressive IV fluid hydration with normal saline at 130 mL per hour. 1 mg of Dilaudid every 4 hours as needed for pain. 2. History of cyclic vomiting syndrome/cannabinoids induced hyperemesis 3. History of type 2 diabetes: Diet controlled. A1c on 09/08/20 5.6%. We will continue with sliding scale insulin during this hospital stay 4. Essential hypertension, blood pressure not well controlled. Resume home medication and continue to monitor closely 5. DVT prophylaxis with subcu Lovenox
[2020-09-11] MEDS: lisinopriL 20 MG TAB PO SCH (15:01)
[2020-09-11] MEDS: amLODIPine 5 MG TAB PO SCH (15:01)
[2020-09-11] MEDS: ENOXAPARIN 40 MG/0.4 ML SYRINGE SQ SCH (15:02)
[2020-09-11] MEDS: SODIUM CHLORIDE 0.9% 1,000 ML IV SCH ×2 (15:03→21:32)
--- NOTE | 2020-09-11 15:36 | US ---
EXAMINATION TYPE: US abdomen limited DATE OF EXAM: 09/11/2020 COMPARISON: NONE CLINICAL HISTORY: Acute pancreatitis ruled out gallstones. Pain EXAM MEASUREMENTS: Liver Length: 15.8 cm Gallbladder Wall: .2 cm CBD: .4 cm Right Kidney: 10.2 x 4.3 x 5.2 cm Pancreas: Obscured by bowel gas Liver: Increased attenuation Gallbladder: No stones seen Evidence for sonographic Cooley's sign: No CBD: wnl Right Kidney: wnl IMPRESSION: No gallstones or dilated ducts. No focal liver defect.
[2020-09-11] MEDS ORDERED: CALCIUM CARBONATE 500 MG CHEWABLE PO PRN (16:50)
[2020-09-11 16:59] LABS: Glucose,Whole Blood 142 mg/dL (75-99)
[2020-09-11] MEDS: INSULIN ASPART (NovoLOG) 100 UNIT/ML VIAL SQ SCH ×2 (17:31→21:05)
[2020-09-11 21:07] LABS: Glucose,Whole Blood 120 mg/dL (75-99)
[2020-09-11] MEDS: ONDANSETRON 4 MG/2 ML VIAL IVP PRN (21:31)
[2020-09-12] MEDS: SODIUM CHLORIDE 0.9% 1,000 ML IV SCH (06:21)
[2020-09-12 07:08] LABS: Glucose,Whole Blood 99 mg/dL (75-99)
[2020-09-12 07:17] LABS: Basophils # (A) 0.1 k/uL (0-0.2); Basophils % (A) 1 %; Eosinophils # (A) 0.2 k/uL (0-0.7); Eosinophils % (A) 1 %; HCT 42.5 % (34.0-46.0); HGB 14.6 gm/dL (11.4-16.0); Lymphocytes # (A) 3.4 k/uL (1.0-4.8); Lymphocytes % (A) 29 %; MCH 28.7 pg (25.0-35.0); MCHC 34.4 g/dL (31.0-37.0); MCV 83.3 fL (80.0-100.0); Mean Platelet Volume 6.6; Monocytes # (A) 0.7 k/uL (0-1.0); Monocytes % (A) 6 %; Neutrophils # (A) 7.2 k/uL (1.3-7.7); Neutrophils % (A) 61 %; Platelet Count 393 k/uL (150-450); RBC 5.11 m/uL (3.80-5.40); RDW 12.7 % (11.5-15.5); WBC 11.8 k/uL (3.8-10.6)
[2020-09-12] MEDS: INSULIN ASPART (NovoLOG) 100 UNIT/ML VIAL SQ SCH ×4 (08:25→20:53)
[2020-09-12] MEDS: CITALOPRAM HYDROBROMIDE 20 MG TAB PO SCH (08:53)
[2020-09-12] MEDS: ENOXAPARIN 40 MG/0.4 ML SYRINGE SQ SCH (08:53)
[2020-09-12] MEDS: amLODIPine 5 MG TAB PO SCH (08:53)
[2020-09-12] MEDS: lisinopriL 20 MG TAB PO SCH (08:53)
--- NOTE | 2020-09-12 10:26 | P.PN ---
Subjective Progress Note Date: 09/12/20 Patient's report that her abdominal pain improved significantly. She is still having some dull pain in the epigastric area. She reports feeling very thirsty. No nausea or vomiting. Objective - Vital Signs Vital signs: Vital Signs Temp 98.6 F 09/12/20 05:00 Pulse 80 09/12/20 05:00 Resp 20 09/12/20 05:00 BP 96/59 09/12/20 05:00 Pulse Ox 97 09/12/20 05:00 Intake & Output 09/11/20 09/12/20 09/12/20 18:59 06:59 18:59 Intake Total 260 0 Balance 260 0 Weight 92.986 kg Intake: Intake, IV Titration 260 Amount Sodium Chloride 0.9% 1, 260 000 ml @ 130 mls/hr IV . Q7H42M [facility] Rx#:[id number] Oral 0 Other: Voiding Method Toilet Toilet # Voids 1 - Exam General: The patient is awake and alert, in no distress Eye: there is normal conjunctiva bilaterally. Neck: The neck is supple, there is no JVD. Cardiovascular: Normal S1-S2, no S3-S4, no murmurs. Respiratory: Lungs clear to auscultation bilaterally Gastrointestinal: Abdomen is soft, nontender Musculoskeletal: There is no pedal edema. Neurological:. Speech is normal. Skin: Skin is warm and dry - Labs CBC & Chem 7: 09/12/20 06:37 09/11/20 10:46 Labs: Abnormal Lab Results - Last 24 Hours (Table) 09/11/20 09/11/20 09/11/20 Range/Units 10:46 10:46 10:46 WBC 15.8 H (3.8-10.6) k/uL RBC 5.43 H (3.80-5.40) m/uL Plt Count 451 H (150-450) k/uL Neutrophils # 12.2 H (1.3-7.7) k/uL Sodium 132 L (137-145) mmol/L Chloride 92 L (98-107) mmol/L Glucose 208 H (74-99) mg/dL POC Glucose (mg/dL) (75-99) mg/dL Calcium 11.2 H (8.4-10.2) mg/dL Amylase 488 H* (30-110) U/L Lipase 3173 H (23-300) U/L Urine Appearance Turbid H (Clear) Urine Protein Trace H (Negative) Amorphous Sediment Moderate H (None) /hpf Urine Mucus Rare H (None) /hpf 09/11/20 09/11/20 09/12/20 Range/Units 16:41 21:01 06:37 WBC 11.8 H (3.8-10.6) k/uL RBC (3.80-5.40) m/uL Plt Count (150-450) k/uL Neutrophils # (1.3-7.7) k/uL Sodium (137-145) mmol/L Chloride (98-107) mmol/L Glucose (74-99) mg/dL POC Glucose (mg/dL) 142 H 120 H (75-99) mg/dL Calcium (8.4-10.2) mg/dL Amylase (30-110) U/L Lipase (23-300) U/L Urine Appearance (Clear) Urine Protein (Negative) Amorphous Sediment (None) /hpf Urine Mucus (None) /hpf Assessment and Plan Assessment: This is a 39-year-old female with past medical history noted below who presented to the emergency room with worsening abdominal pain, nausea, and vomiting. Patient was evaluated in the ER and admitted to the hospital for further management of her medical problems noted below. 1. Acute pancreatitis, exact etiology unclear. patient denies any alcohol use. Computed tomography scan of the abdomen and pelvis showed no acute findings. Abdominal ultrasound was also normal. Triglyceride level pending. I will start liquid diet today and continue to monitor closely. 2. History of cyclic vomiting syndrome/cannabinoids induced hyperemesis 3. History of type 2 diabetes: Diet controlled. A1c on 09/08/20 5.6%. We will continue with sliding scale insulin during this hospital stay 4. Essential hypertension, blood pressure well controlled. Continue home medications 5. DVT prophylaxis with subcu Lovenox Continue supportive care. Advance diet as tolerated. Anticipate discharge home tomorrow.
[2020-09-12] MEDS ORDERED: SODIUM CHLORIDE 0.9% 1,000 ML IV SCH (10:30)
[2020-09-12 11:22] LABS: African American GFR (CKD) 133.1 (60.0-200.0); Anion Gap 5.9 mmol/L (4.00-12.00); BUN/Creat Ratio 13.33 Ratio (12.00-20.00); Calcium 9.2 mg/dL (8.7-10.3); Carbon Dioxide 29.1 mmol/L (21.6-31.8); Non-African American GFR(CKD) 114.8 (60.0-200.0); Potassium 3.6 mmol/L (3.5-5.5); Total Bilirubin 0.5 mg/dL (0.2-1.2)
[2020-09-12 11:23] LABS: LDL Cholesterol,Calculated 59.8 mg/dL (0.0-131.0); VLDL Calculation 48.2 mg/dL (5.00-40.00)
[2020-09-12 13:01] LABS: Glucose,Whole Blood 119 mg/dL (75-99)
[2020-09-12] MEDS: HYDROmorphone 0.5 MG/0.5 ML SYRINGE IVP PRN ×3 (13:53→20:53)
[2020-09-12 17:10] LABS: Glucose,Whole Blood 144 mg/dL (75-99)
[2020-09-12 20:19] LABS: Glucose,Whole Blood 125 mg/dL (75-99)
[2020-09-12] MEDS ORDERED: PANTOPRAZOLE 40 MG TABLET PO STA (21:02)
[2020-09-13] MEDS: HYDROmorphone 0.5 MG/0.5 ML SYRINGE IVP PRN ×2 (01:08→06:29)
[2020-09-13] MEDS: ONDANSETRON 4 MG/2 ML VIAL IVP PRN (01:15)
[2020-09-13] MEDS: INSULIN ASPART (NovoLOG) 100 UNIT/ML VIAL SQ SCH ×2 (06:41→12:33)
[2020-09-13] MEDS ORDERED: PANTOPRAZOLE 40 MG TABLET PO SCH (07:30)
[2020-09-13 08:18] LABS: Glucose,Whole Blood 99 mg/dL (75-99)
--- NOTE | 2020-09-13 08:44 | P.DS ---
Providers Date of admission: 09/11/20 11:42 Expected date of discharge: 09/13/20 Attending physician: Owen Medrano [facility] Course: This is a 39-year-old female with past medical history noted below who presented to the emergency room with worsening abdominal pain, nausea, and vomiting. Patient was evaluated in the ER and admitted to the hospital for further management of her medical problems noted below. 1. Acute pancreatitis, exact etiology unclear. patient denies any alcohol use. Computed tomography scan of the abdomen and pelvis showed no acute findings. Abdominal ultrasound was also normal. Triglyceride level within acceptable range. Patient treated with supportive care and aggressive IV fluid hydration and pain medications. Her overall condition improved significantly. She was still having some epigastric discomfort with food and was started on a trial of Protonix 40 mg daily. She was advised to follow-up with her PCP as she may require referral to GI for possible EGD if symptoms does not improve 2. History of cyclic vomiting syndrome/cannabinoids induced hyperemesis 3. History of type 2 diabetes: Diet controlled. A1c on 09/08/20 5.6%. 4. Essential hypertension, blood pressure well controlled. Continue home medications Patient will be discharged home in a stable condition. For further details about this hospitalization please refer to the electronic chart. Time spent on discharge > 30 minutes including counseling and coordination of care Patient Condition at Discharge: Stable Plan - Discharge Summary Discharge Rx Participant: No New Discharge Prescriptions: New Pantoprazole [Protonix] 40 mg PO AC-BRKFST #30 tablet. Continue amLODIPine BESYLATE/BENAZEPRIL [Lotrel 5-20 MG] 1 cap PO DAILY Prochlorperazine [Compazine] 10 mg PO Q6H PRN #15 tab PRN Reason: Nausea Ondansetron [Zofran ODT] 4 mg PO Q8HR PRN #15 tab PRN Reason: Nausea Citalopram Hydrobromide [CeleXA] 20 mg PO DAILY Discharge Medication List Prochlorperazine [Compazine] 10 mg PO Q6H PRN #15 tab 05/24/20 [Rx] amLODIPine BESYLATE/BENAZEPRIL [Lotrel 5-20 MG] 1 cap PO DAILY 05/24/20 [History] Ondansetron [Zofran ODT] 4 mg PO Q8HR PRN #15 tab 09/10/20 [Rx] Citalopram Hydrobromide [CeleXA] 20 mg PO DAILY 09/11/20 [History] Pantoprazole [Protonix] 40 mg PO JOSÉ ANTONIO-DORIKFST #30 tablet. 09/13/20 [Rx] Follow up Appointment(s)/Referral(s): Sandy Roper MD [Primary Care Provider] - 3 Days Discharge Disposition: HOME SELF-CARE
[2020-09-13 08:49] VITALS: BP 107/66; PULSE 79; RESP 14; TEMP 97.4
[2020-09-13] MEDS: lisinopriL 20 MG TAB PO SCH (09:46)
[2020-09-13] MEDS: amLODIPine 5 MG TAB PO SCH (09:47)
[2020-09-13] MEDS: ENOXAPARIN 40 MG/0.4 ML SYRINGE SQ SCH (09:47)
[2020-09-13] MEDS: CITALOPRAM HYDROBROMIDE 20 MG TAB PO SCH (09:47)
[2020-09-13 12:19] LABS: Glucose,Whole Blood 110 mg/dL (75-99)
== END 2020-09-13 15:38 | disposition home or self-care (01) | DRG 440 ==
LOC: EC 10:18 → 5NMEDONC 11:42 → 6PED 09-12 10:57
PROVIDERS: ADMIT Internal Medicine; ATTEND Internal Medicine
DX: K85.90 Acute pancreatitis without necrosis or infection, unspecified (principal); E11.65 Type 2 diabetes mellitus with hyperglycemia; F41.9 Anxiety disorder, unspecified; I10 Essential (primary) hypertension; R11.15 Cyclical vomiting syndrome unrelated to migraine; Z79.899 Other long term (current) drug therapy; Z82.49 Family history of ischemic heart disease and other diseases of the circulatory system; Z83.3 Family history of diabetes mellitus; Z87.440 Personal history of urinary (tract) infections; Z87.891 Personal history of nicotine dependence; Z82.3 Family history of stroke; F40.240 Claustrophobia; Z20.822 Contact with and (suspected) exposure to COVID-19
CPT/HCPCS: 36415; 74177; 76705; 80053; 80061; 81001; 81025; 82150; 83690; 85025; 87635; 96361; 96374; 96375; 99285

== ENCOUNTER 2020-12-06 08:59 | Emergency (ER) | payer BC ==
[2020-12-06 09:04] VITALS: TEMP 97.7
[2020-12-06] MEDS ORDERED: SODIUM CHLORIDE 0.9% 1,000 ML IV STA ×2 (09:30→11:07)
[2020-12-06] MEDS ORDERED: ONDANSETRON 4 MG/2 ML VIAL IVP STA ×2 (09:30→14:19)
[2020-12-06] MEDS ORDERED: PANTOPRAZOLE 40 MG/10 ML VIAL IVP STA (09:30)
[2020-12-06] MEDS ORDERED: MORPHINE SULFATE 4 MG/ML SYRINGE IV STA (09:30)
[2020-12-06] MEDS ORDERED: diphenhydrAMINE 50 MG/ML 1 ML VIAL IVP STA (09:31)
--- NOTE | 2020-12-06 09:38 | ED ---
Abdominal Pain HPI - General Chief Complaint: Abdominal Pain Stated Complaint: abd pain, panic attack Time Seen by Provider: 12/06/20 09:10 Source: patient Mode of arrival: ambulatory Limitations: no limitations - History of Present Illness Initial Comments: Patient is a 40-year-old female, with history of hypertension and diabetes, presenting to the emergency Department with complaints of abdominal pain starting yesterday. She's been having some nausea and vomiting as well, she can having regular bowel movements. She does have night sweats and cold chills but no known fever. She has had these pains in the past, she's been diagnosed with pancreatitis. Her only abdominal surgery is gastric surgery. She denies being . She denies any chest pain or shortness of breath, no dysuria or vaginal discharge. She has no further complaints at this time. Upon arrival to the ER, her vitals are within normal limits. - Related Data Home Medications Medication Instructions Recorded Confirmed amLODIPine BESYLATE/BENAZEPRIL 1 cap PO DAILY 05/24/20 12/09/20 [Lotrel 5-20 MG] Citalopram Hydrobromide [CeleXA] 20 mg PO DAILY 09/11/20 12/09/20 Allergies Allergy/AdvReac Type Severity Reaction Status Date / Time No Known Allergies Allergy Verified 12/09/20 13:22 Review of Systems ROS Statement: Those systems with pertinent positive or pertinent negative responses have been documented in the HPI. ROS Other: All systems not noted in ROS Statement are negative. Past Medical History Past Medical History: Diabetes Mellitus, Hypertension Additional Past Medical History / Comment(s): NIDDM type II/diagnosed about 1 year ago, occasional cervical pain/herniated discs, past UTI History of Any Multi-Drug Resistant Organisms: None Reported Additional Past Surgical History / Comment(s): liposuction and abdominoplasty Past Anesthesia/Blood Transfusion Reactions: Previous Problems w/ Anesthesia Additional Past Anesthesia/Blood Transfusion Reaction / Comment(s): Pt takes a long time waking. She has clausterphobia Past Psychological History: Anxiety Smoking Status: Former smoker Past Alcohol Use History: None Reported Past Drug Use History: Marijuana - Past Family History Mother History Unknown: Yes Additional Family Medical History / Comment(s): Mother of unknown causes at the age of 63yrs Father Family Medical History: CVA/TIA, Diabetes Mellitus, Hyperlipidemia, Hypertension Additional Family Medical History / Comment(s): Father is living. General Exam - General Exam Comments Initial Comments: GENERAL: Patient is well-developed and well-nourished. Patient is nontoxic and in mild distress. HEAD: Atraumatic, normocephalic. EYES: Pupils equal round and reactive to light, extraocular movements intact, sclera anicteric, conjunctiva are normal. Eyelids were unremarkable. ENT: Nares patent, oropharynx clear without exudates. Moist mucous membranes. NECK: Normal range of motion, supple without lymphadenopathy or JVD. LUNGS: Unlabored respirations. Breath sounds clear to auscultation bilaterally and equal. No wheezes rales or rhonchi. HEART: Regular rate and rhythm without murmurs, rubs or gallops. ABDOMEN: Soft, generalized abdominal tenderness, increase his upper abdomen,, normoactive bowel sounds. No guarding, no rebound. No masses appreciated. : Deferred MUSCULOSKELETAL: Normal extremities with adequate strength and normal range of motion, no pitting or edema. No clubbing or cyanosis. NEUROLOGICAL: Patient is alert and oriented x 3. Motor and sensory are also intact. Cranial nerves II through XII grossly intact. Symmetrical smile. Normal speech, normal gait. PSYCH: Normal mood, normal affect. SKIN: Warm, Dry, normal turgor, no rashes or lesions noted. Limitations: no limitations Course Vital Signs 12/06/20 12/06/20 12/06/20 09:01 11:28 14:30 Temperature 97.7 F Pulse Rate 95 74 85 Respiratory 20 18 18 Rate Blood Pressure 151/90 170/85 147/84 O2 Sat by Pulse 99 98 99 Oximetry Medical Decision Making - Medical Decision Making Patient is a 40-year-old female here with abdominal pain it started yesterday, positive nausea and vomiting as well. No fevers or vitals are stable. Patient states she gets this way when she smokes marijuana and does admit to smoking a lot of marijuana lately. Labs show a white count of 18.7, most likely reactive, lipase is normal, lactic acid came back at 6.2. Urine shows 1+ ketones, no signs of infection. It did in all similar gallbladder which reveals no acute process seen at this time. She was given 2 L of fluids, lactic acid was rechecked and has decreased at 3.0. Patient was reexamined on several occasions, she has been resting comfortably, over when she wakes up she complains of severe pain again. She's been asking multiple people for drinks, she does throw these up right away. I discussed the patient and her symptoms are consistent with her marijuana use. Recommend discontinuing the marijuana use, she can follow up with her primary care physician. I will send her home with some Zofran. She is agreeable to this and is stable for discharge. Case discussed with Dr. Golden. - Lab Data Result diagrams: 12/06/20 09:58 12/06/20 09:58 Lab Results 12/06/20 12/06/20 12/06/20 Range/Units 09:58 09:58 09:58 WBC 18.7 H (3.8-10.6) k/uL RBC 5.27 (3.80-5.40) m/uL Hgb 15.6 (11.4-16.0) gm/dL Hct 44.5 (34.0-46.0) % MCV 84.3 (80.0-100.0) fL MCH 29.6 (25.0-35.0) pg MCHC 35.0 (31.0-37.0) g/dL RDW 12.4 (11.5-15.5) % Plt Count 531 H (150-450) k/uL MPV 7.8 Neutrophils % 87 % Lymphocytes % 10 % Monocytes % 3 % Eosinophils % 0 % Basophils % 0 % Neutrophils # 16.2 H (1.3-7.7) k/uL Lymphocytes # 1.8 (1.0-4.8) k/uL Monocytes # 0.5 (0-1.0) k/uL Eosinophils # 0.1 (0-0.7) k/uL Basophils # 0.1 (0-0.2) k/uL Sodium (137-145) mmol/L Potassium (3.5-5.1) mmol/L Chloride (98-107) mmol/L Carbon Dioxide (22-30) mmol/L Anion Gap mmol/L BUN (7-17) mg/dL Creatinine (0.52-1.04) mg/dL Est GFR (CKD-EPI)AfAm (>60 ml/min/1.73 sqM) Est GFR (CKD-EPI)NonAf (>60 ml/min/1.73 sqM) Glucose (74-99) mg/dL Lactic Ac Sepsis Rflx Plasma Lactic Acid Vamsi (0.7-2.0) mmol/L Calcium (8.4-10.2) mg/dL Total Bilirubin (0.2-1.3) mg/dL AST (14-36) U/L ALT (4-34) U/L Alkaline Phosphatase (38-126) U/L Total Protein (6.3-8.2) g/dL Albumin (3.5-5.0) g/dL Amylase (30-110) U/L Lipase (23-300) U/L Urine Color Light Yellow Urine Appearance Clear (Clear) Urine pH 7.0 (5.0-8.0) Ur Specific [place] 1.011 (1.001-1.035) Urine Protein Negative (Negative) Urine Glucose (UA) 2+ H (Negative) Urine Ketones 1+ H (Negative) Urine Blood Small H (Negative) Urine Nitrite Negative (Negative) Urine Bilirubin Negative (Negative) Urine Urobilinogen <2.0 (<2.0) mg/dL Ur Leukocyte Esterase Negative (Negative) Urine RBC 5 (0-5) /hpf Urine WBC <1 (0-5) /hpf Ur Squamous Epith Cells <1 (0-4) /hpf Urine Mucus Rare H (None) /hpf Urine HCG, Qual Not Detected (Not Detectd) 12/06/20 12/06/20 12/06/20 Range/Units 09:58 09:58 11:05 WBC (3.8-10.6) k/uL RBC (3.80-5.40) m/uL Hgb (11.4-16.0) gm/dL Hct (34.0-46.0) % MCV (80.0-100.0) fL MCH (25.0-35.0) pg MCHC (31.0-37.0) g/dL RDW (11.5-15.5) % Plt Count (150-450) k/uL MPV Neutrophils % % Lymphocytes % % Monocytes % % Eosinophils % % Basophils % % Neutrophils # (1.3-7.7) k/uL Lymphocytes # (1.0-4.8) k/uL Monocytes # (0-1.0) k/uL Eosinophils # (0-0.7) k/uL Basophils # (0-0.2) k/uL Sodium 138 (137-145) mmol/L Potassium 4.4 (3.5-5.1) mmol/L Chloride 101 (98-107) mmol/L Carbon Dioxide 17 L (22-30) mmol/L Anion Gap 20 mmol/L BUN 16 (7-17) mg/dL Creatinine 0.55 (0.52-1.04) mg/dL Est GFR (CKD-EPI)AfAm >90 (>60 ml/min/1.73 sqM) Est GFR (CKD-EPI)NonAf >90 (>60 ml/min/1.73 sqM) Glucose 247 H (74-99) mg/dL Lactic Ac Sepsis Rflx Y Plasma Lactic Acid Vamsi 6.2 H* (0.7-2.0) mmol/L Calcium 10.4 H (8.4-10.2) mg/dL Total Bilirubin 0.8 (0.2-1.3) mg/dL AST 28 (14-36) U/L ALT 30 (4-34) U/L Alkaline Phosphatase 74 (38-126) U/L Total Protein 8.2 (6.3-8.2) g/dL Albumin 5.0 (3.5-5.0) g/dL Amylase 100 (30-110) U/L Lipase 133 (23-300) U/L Urine Color Urine Appearance (Clear) Urine pH (5.0-8.0) Ur Specific [place] (1.001-1.035) Urine Protein (Negative) Urine Glucose (UA) (Negative) Urine Ketones (Negative) Urine Blood (Negative) Urine Nitrite (Negative) Urine Bilirubin (Negative) Urine Urobilinogen (<2.0) mg/dL Ur Leukocyte Esterase (Negative) Urine RBC (0-5) /hpf Urine WBC (0-5) /hpf Ur Squamous Epith Cells (0-4) /hpf Urine Mucus (None) /hpf Urine HCG, Qual (Not Detectd) 12/06/20 12/06/20 Range/Units 13:44 13:59 WBC (3.8-10.6) k/uL RBC (3.80-5.40) m/uL Hgb (11.4-16.0) gm/dL Hct (34.0-46.0) % MCV (80.0-100.0) fL MCH (25.0-35.0) pg MCHC (31.0-37.0) g/dL RDW (11.5-15.5) % Plt Count (150-450) k/uL MPV Neutrophils % % Lymphocytes % % Monocytes % % Eosinophils % % Basophils % % Neutrophils # (1.3-7.7) k/uL Lymphocytes # (1.0-4.8) k/uL Monocytes # (0-1.0) k/uL Eosinophils # (0-0.7) k/uL Basophils # (0-0.2) k/uL Sodium (137-145) mmol/L Potassium (3.5-5.1) mmol/L Chloride (98-107) mmol/L Carbon Dioxide (22-30) mmol/L Anion Gap mmol/L BUN (7-17) mg/dL Creatinine (0.52-1.04) mg/dL Est GFR (CKD-EPI)AfAm (>60 ml/min/1.73 sqM) Est GFR (CKD-EPI)NonAf (>60 ml/min/1.73 sqM) Glucose (74-99) mg/dL Lactic Ac Sepsis Rflx Y Plasma Lactic Acid Vamsi 3.0 H* (0.7-2.0) mmol/L Calcium (8.4-10.2) mg/dL Total Bilirubin (0.2-1.3) mg/dL AST (14-36) U/L ALT (4-34) U/L Alkaline Phosphatase (38-126) U/L Total Protein (6.3-8.2) g/dL Albumin (3.5-5.0) g/dL Amylase (30-110) U/L Lipase (23-300) U/L Urine Color Urine Appearance (Clear) Urine pH (5.0-8.0) Ur Specific [place] (1.001-1.035) Urine Protein (Negative) Urine Glucose (UA) (Negative) Urine Ketones (Negative) Urine Blood (Negative) Urine Nitrite (Negative) Urine Bilirubin (Negative) Urine Urobilinogen (<2.0) mg/dL Ur Leukocyte Esterase (Negative) Urine RBC (0-5) /hpf Urine WBC (0-5) /hpf Ur Squamous Epith Cells (0-4) /hpf Urine Mucus (None) /hpf Urine HCG, Qual (Not Detectd) Disposition Clinical Impression: Abdominal pain, Dehydration, Nausea & vomiting Disposition: HOME SELF-CARE Condition: Stable Instructions (If sedation given, give patient instructions): Dehydration (ED) Additional Instructions: Please return to the Emergency Department if symptoms worsen or any other concerns. Please discontinue marijuana use as this most likely contributing to your symptoms. Zofran for any additional nausea or vomiting. Please follow up with your primary care physician and GI doctor. Is patient prescribed a controlled substance at d/c from ED?: No Referrals: Sandy Roper MD [Primary Care Provider] - 1-2 days Charly Dougherty MD [STAFF PHYSICIAN] - 1-2 days Time of Disposition: 14:12
[2020-12-06 10:17] LABS: Basophils # (A) 0.1 k/uL (0-0.2); Basophils % (A) 0 %; Eosinophils # (A) 0.1 k/uL (0-0.7); Eosinophils % (A) 0 %; HCT 44.5 % (34.0-46.0); HGB 15.6 gm/dL (11.4-16.0); Lymphocytes # (A) 1.8 k/uL (1.0-4.8); Lymphocytes % (A) 10 %; MCH 29.6 pg (25.0-35.0); MCV 84.3 fL (80.0-100.0); Mean Platelet Volume 7.8; Monocytes # (A) 0.5 k/uL (0-1.0); Monocytes % (A) 3 %; Neutrophils # (A) 16.2 k/uL (1.3-7.7); Neutrophils % (A) 87 %; Platelet Count 531 k/uL (150-450); RBC 5.27 m/uL (3.80-5.40); RDW 12.4 % (11.5-15.5); WBC 18.7 k/uL (3.8-10.6)
[2020-12-06 10:39] LABS: AST 28 U/L (14-36); African American GFR (CKD) >90 (>60 ml/min/1.73 sqM); Alkaline Phosphatase 74 U/L (38-126); Amylase 100 U/L (30-110); Anion Gap 20 mmol/L; Blood Urea Nitrogen 16 mg/dL (7-17); Calcium 10.4 mg/dL (8.4-10.2); Carbon Dioxide 17 mmol/L (22-30); Chloride 101 mmol/L (98-107); Glucose 247 mg/dL (74-99); Lipase 133 U/L (23-300); Non-African American GFR(CKD) >90 (>60 ml/min/1.73 sqM); Potassium 4.4 mmol/L (3.5-5.1); Sodium 138 mmol/L (137-145); Total Bilirubin 0.8 mg/dL (0.2-1.3); Total Protein 8.2 g/dL (6.3-8.2)
--- NOTE | 2020-12-06 10:45 | US ---
EXAMINATION TYPE: US gallbladder DATE OF EXAM: 12/06/2020 COMPARISON: US & CT 09/11/2020 CLINICAL HISTORY: epigastric pain, n/v. Pain, N&V EXAM MEASUREMENTS: Liver Length: 15.8 cm Gallbladder Wall: 0.1 cm CBD: 0.3 cm Right Kidney: 10.1 x 4.6 x 5.1 cm Pancreas: wnl, tail obscured by overlying bowel gas Liver: Heterogeneous, difficult to penetrate Gallbladder: wnl Evidence for sonographic Cooley's sign: No CBD: wnl Right Kidney: wnl Similar findings when compared to prior US in August IMPRESSION: Heterogeneous liver is nonspecific and unchanged.
[2020-12-06 11:03] LABS: ALT 30 U/L (4-34)
[2020-12-06 11:29] VITALS: RESP 18
[2020-12-06] MEDS ORDERED: MORPHINE SULFATE 2 MG/ML SYRINGE IVP ONE (12:10)
[2020-12-06 13:57] LABS: Appearance,Urine Clear (Clear); Bilirubin,Urine Negative (Negative); Blood,Urine Small (Negative); Color,Urine Light Yellow; Glucose,Urine (UA) 2+ (Negative); Ketones,Urine 1+ (Negative); Leukocyte Esterase,Urine Negative (Negative); Mucus,Urine Rare /hpf; Nitrite,Urine Negative (Negative); Protein,Urine Negative (Negative); RBC,Urine 5 /hpf (0-5); Specific Gravity,Urine 1.011 (1.001-1.035); Squamous Epithelial Cell,Urine <1 /hpf (0-4); Urobilinogen,Urine <2.0 mg/dL (<2.0); WBC,Urine <1 /hpf (0-5)
[2020-12-06] MEDS ORDERED: MAG HYDROX/AL HYDROX/SIMETH 30 ML, HYOSCYAMINE ELIXIR 10 ML, LIDOCAINE VISCOUS 2% 10 ML PO STA ×3 (14:10)
[2020-12-06 14:31] VITALS: BP 147/84; PULSE 85
== END 2020-12-06 14:39 | disposition home or self-care (01) ==
LOC: EC 08:59
DX: E86.0 Dehydration (principal); R11.2 Nausea with vomiting, unspecified; E11.9 Type 2 diabetes mellitus without complications; I10 Essential (primary) hypertension; F41.0 Panic disorder [episodic paroxysmal anxiety]; Z87.440 Personal history of urinary (tract) infections; Z87.891 Personal history of nicotine dependence; F12.90 Cannabis use, unspecified, uncomplicated
CPT/HCPCS: 36415; 80053; 82150; 83605; 83690; 85025; 81001; 81025; 76705; 99284; 96374; 96375 ×2; 96376 ×2; 96361 ×3; J2270 ×2; J1200; J2405; C9113

== ENCOUNTER 2020-12-07 16:31 | Emergency (ER) | payer BC ==
[2020-12-07] MEDS ORDERED: SODIUM CHLORIDE 0.9% 2,000 ML IV STA (17:21)
[2020-12-07] MEDS ORDERED: METOCLOPRAMIDE 5 MG/ML 2 ML VIAL IVP STA (17:21)
[2020-12-07] MEDS ORDERED: FAMOTIDINE 20 MG/2 ML VIAL IV STA (17:22)
[2020-12-07] MEDS ORDERED: LORazepam 2 MG/ML INJ IV STA (17:22)
--- NOTE | 2020-12-07 17:31 | ED ---
General Adult HPI - General Source: patient, RN notes reviewed Mode of arrival: ambulatory Limitations: no limitations <Ángel Reyes - Last Filed: 12/07/20 20:51> <Esequiel Triana - Last Filed: 12/07/20 23:33> - General Chief complaint: Psychiatric Symptoms Stated complaint: Abd Pain Time Seen by Provider: 12/07/20 16:46 - History of Present Illness Initial comments: Patient is a pleasant 40-year-old female presenting to the emergency Department with complaints of epigastric discomfort. Patient has chronic symptoms. Patient does have history of similar problem previously associated with smoking marijuana and she lasted 2 days ago. Patient has had persistent nausea and vomiting for the past couple of days and is worried about dehydration. Patient did make suicidal statements to the nurse that if her symptoms get better she would want to harm herself. Patient still feels nauseated. Patient does have epigastric discomfort as well. No fever. (Ángel Reyes) - Related Data Home Medications Medication Instructions Recorded Confirmed amLODIPine BESYLATE/BENAZEPRIL 1 cap PO DAILY 05/24/20 12/07/20 [Lotrel 5-20 MG] Citalopram Hydrobromide [CeleXA] 20 mg PO DAILY 09/11/20 12/07/20 Rizatriptan Odt [Maxalt Bingo Attendant] 10 mg PO DAILY PRN 12/06/20 12/07/20 Previous Rx's Medication Instructions Recorded Ondansetron Odt [Zofran Odt] 4 mg PO Q8HR PRN #10 tab 12/06/20 Allergies Allergy/AdvReac Type Severity Reaction Status Date / Time No Known Allergies Allergy Verified 12/07/20 18:01 Review of Systems ROS Other: All systems not noted in ROS Statement are negative. Constitutional: Denies: fever Eyes: Denies: eye pain ENT: Denies: ear pain Respiratory: Denies: cough Cardiovascular: Denies: chest pain Endocrine: Denies: fatigue Gastrointestinal: Reports: as per HPI, abdominal pain, nausea, vomiting Genitourinary: Denies: dysuria Musculoskeletal: Denies: back pain Skin: Denies: rash Neurological: Denies: weakness <Ángel Reyes - Last Filed: 12/07/20 20:51> ROS Other: All systems not noted in ROS Statement are negative. <Esequiel Triana - Last Filed: 12/07/20 23:33> ROS Statement: Those systems with pertinent positive or pertinent negative responses have been documented in the HPI. Past Medical History Past Medical History: Diabetes Mellitus, Hypertension Additional Past Medical History / Comment(s): NIDDM type II/diagnosed about 1 year ago, occasional cervical pain/herniated discs, past UTI History of Any Multi-Drug Resistant Organisms: None Reported Additional Past Surgical History / Comment(s): liposuction and abdominoplasty Past Anesthesia/Blood Transfusion Reactions: Previous Problems w/ Anesthesia Additional Past Anesthesia/Blood Transfusion Reaction / Comment(s): Pt takes a long time waking. She has clausterphobia Past Psychological History: Anxiety Smoking Status: Former smoker Past Alcohol Use History: None Reported Past Drug Use History: Marijuana - Past Family History Mother History Unknown: Yes Additional Family Medical History / Comment(s): Mother of unknown causes at the age of 63yrs Father Family Medical History: CVA/TIA, Diabetes Mellitus, Hyperlipidemia, Hypertension Additional Family Medical History / Comment(s): Father is living. <Ángel Reyes - Last Filed: 12/07/20 20:51> General Exam Limitations: no limitations General appearance: alert, in no apparent distress Head exam: Present: normocephalic Eye exam: Present: normal appearance Neck exam: Present: normal inspection Respiratory exam: Present: normal lung sounds bilaterally Cardiovascular Exam: Present: regular rate, normal rhythm GI/Abdominal exam: Present: soft. Absent: distended, tenderness Extremities exam: Present: normal inspection Neurological exam: Present: alert Psychiatric exam: Present: anxious Skin exam: Present: normal color <Ángel Reyes - Last Filed: 12/07/20 20:51> Course <Ángel Reyes - Last Filed: 12/07/20 20:51> <Esequiel Triana - Last Filed: 12/07/20 23:33> Vital Signs 12/07/20 12/07/20 12/07/20 16:38 18:36 22:03 Temperature 98.3 F 98.0 F Pulse Rate 94 99 92 Respiratory 17 18 18 Rate Blood Pressure 178/100 131/60 127/82 O2 Sat by Pulse 98 96 96 Oximetry - Reevaluation(s) Reevaluation #1: 12/07/20 20:51 Mental health services has been contacted, still pending their evaluation. Case will be endorsed to Dr. Stern (Ángel Reyes) Reevaluation #2: 12/07/20 23:32 Records reviewed (Esequiel Triana) Reevaluation #3: 12/07/20 23:32 Patient is reevaluated, symptoms continue to remain improved (Esequiel Triana) Reevaluation #4: 12/07/20 23:32 Patient was medically clear for psychiatric evaluation (Esequiel Triana) Medical Decision Making - Lab Data Result diagrams: 12/07/20 17:33 12/07/20 17:33 - Radiology Data Radiology results: image reviewed (Abdominal x-ray reveals nonacute abdomen) <Ángel Reyes - Last Filed: 12/07/20 20:51> - Lab Data Result diagrams: 12/07/20 17:33 12/07/20 17:33 <Esequiel Triana - Last Filed: 12/07/20 23:33> - Medical Decision Making Female DF for psychiatric evaluation secondary severe gastroparesis and pain. She is not currently suicidal and can be discharged home (Esequiel Triana) - Lab Data Lab Results 12/07/20 12/07/20 12/07/20 Range/Units 17:33 17:33 17:33 WBC 13.9 H (3.8-10.6) k/uL RBC 5.07 (3.80-5.40) m/uL Hgb 14.6 (11.4-16.0) gm/dL Hct 42.1 (34.0-46.0) % MCV 82.9 (80.0-100.0) fL MCH 28.8 (25.0-35.0) pg MCHC 34.8 (31.0-37.0) g/dL RDW 12.4 (11.5-15.5) % Plt Count 465 H (150-450) k/uL MPV 7.1 Neutrophils % 75 % Lymphocytes % 18 % Monocytes % 5 % Eosinophils % 1 % Basophils % 0 % Neutrophils # 10.4 H (1.3-7.7) k/uL Lymphocytes # 2.4 (1.0-4.8) k/uL Monocytes # 0.7 (0-1.0) k/uL Eosinophils # 0.1 (0-0.7) k/uL Basophils # 0.1 (0-0.2) k/uL Sodium 136 L (137-145) mmol/L Potassium 3.5 (3.5-5.1) mmol/L Chloride 100 (98-107) mmol/L Carbon Dioxide 23 (22-30) mmol/L Anion Gap 13 mmol/L BUN 12 (7-17) mg/dL Creatinine 0.54 (0.52-1.04) mg/dL Est GFR (CKD-EPI)AfAm >90 (>60 ml/min/1.73 sqM) Est GFR (CKD-EPI)NonAf >90 (>60 ml/min/1.73 sqM) Glucose 164 H (74-99) mg/dL Calcium 9.9 (8.4-10.2) mg/dL Total Bilirubin 0.9 (0.2-1.3) mg/dL AST 31 (14-36) U/L ALT 28 (4-34) U/L Alkaline Phosphatase 64 (38-126) U/L Total Protein 7.4 (6.3-8.2) g/dL Albumin 4.6 (3.5-5.0) g/dL Amylase 124 H (30-110) U/L Lipase 176 (23-300) U/L Urine Color Yellow Urine Appearance Clear (Clear) Urine pH 6.0 (5.0-8.0) Ur Specific [place] 1.026 (1.001-1.035) Urine Protein 1+ H (Negative) Urine Glucose (UA) Negative (Negative) Urine Ketones 4+ H (Negative) Urine Blood Large H (Negative) Urine Nitrite Negative (Negative) Urine Bilirubin Negative (Negative) Urine Urobilinogen 2.0 (<2.0) mg/dL Ur Leukocyte Esterase Negative (Negative) Urine RBC 101 H (0-5) /hpf Urine WBC 3 (0-5) /hpf Ur Squamous Epith Cells 1 (0-4) /hpf Urine Mucus Rare H (None) /hpf Urine Opiates Screen (NotDetected) Ur Oxycodone Screen (NotDetected) Urine Methadone Screen (NotDetected) Ur Propoxyphene Screen (NotDetected) Ur Barbiturates Screen (NotDetected) U Tricyclic Antidepress (NotDetected) Ur Phencyclidine Scrn (NotDetected) Ur Amphetamines Screen (NotDetected) U Methamphetamines Scrn (NotDetected) U Benzodiazepines Scrn (NotDetected) Urine Cocaine Screen (NotDetected) U Marijuana (THC) Screen (NotDetected) Serum Alcohol <10 mg/dL 12/07/20 Range/Units 17:33 WBC (3.8-10.6) k/uL RBC (3.80-5.40) m/uL Hgb (11.4-16.0) gm/dL Hct (34.0-46.0) % MCV (80.0-100.0) fL MCH (25.0-35.0) pg MCHC (31.0-37.0) g/dL RDW (11.5-15.5) % Plt Count (150-450) k/uL MPV Neutrophils % % Lymphocytes % % Monocytes % % Eosinophils % % Basophils % % Neutrophils # (1.3-7.7) k/uL Lymphocytes # (1.0-4.8) k/uL Monocytes # (0-1.0) k/uL Eosinophils # (0-0.7) k/uL Basophils # (0-0.2) k/uL Sodium (137-145) mmol/L Potassium (3.5-5.1) mmol/L Chloride (98-107) mmol/L Carbon Dioxide (22-30) mmol/L Anion Gap mmol/L BUN (7-17) mg/dL Creatinine (0.52-1.04) mg/dL Est GFR (CKD-EPI)AfAm (>60 ml/min/1.73 sqM) Est GFR (CKD-EPI)NonAf (>60 ml/min/1.73 sqM) Glucose (74-99) mg/dL Calcium (8.4-10.2) mg/dL Total Bilirubin (0.2-1.3) mg/dL AST (14-36) U/L ALT (4-34) U/L Alkaline Phosphatase (38-126) U/L Total Protein (6.3-8.2) g/dL Albumin (3.5-5.0) g/dL Amylase (30-110) U/L Lipase (23-300) U/L Urine Color Urine Appearance (Clear) Urine pH (5.0-8.0) Ur Specific [place] (1.001-1.035) Urine Protein (Negative) Urine Glucose (UA) (Negative) Urine Ketones (Negative) Urine Blood (Negative) Urine Nitrite (Negative) Urine Bilirubin (Negative) Urine Urobilinogen (<2.0) mg/dL Ur Leukocyte Esterase (Negative) Urine RBC (0-5) /hpf Urine WBC (0-5) /hpf Ur Squamous Epith Cells (0-4) /hpf Urine Mucus (None) /hpf Urine Opiates Screen Detected H (NotDetected) Ur Oxycodone Screen Not Detected (NotDetected) Urine Methadone Screen Not Detected (NotDetected) Ur Propoxyphene Screen Not Detected (NotDetected) Ur Barbiturates Screen Not Detected (NotDetected) U Tricyclic Antidepress Not Detected (NotDetected) Ur Phencyclidine Scrn Not Detected (NotDetected) Ur Amphetamines Screen Not Detected (NotDetected) U Methamphetamines Scrn Not Detected (NotDetected) U Benzodiazepines Scrn Not Detected (NotDetected) Urine Cocaine Screen Not Detected (NotDetected) U Marijuana (THC) Screen Detected H (NotDetected) Serum Alcohol mg/dL Disposition <Ángel Reyes - Last Filed: 12/07/20 20:51> Is patient prescribed a controlled substance at d/c from ED?: No <Esequiel Triana - Last Filed: 12/07/20 23:33> Clinical Impression: Depression, Nausea & vomiting, Grief, Intractable vomiting with nausea Disposition: HOME SELF-CARE Condition: Good Instructions (If sedation given, give patient instructions): Acute Nausea and Vomiting (ED) Referrals: Sandy Roper MD [Primary Care Provider] - 1-2 days
[2020-12-07] MEDS: CAPSAICIN 0.025% CREAM 60 GM TUBE TOPICAL SCH ×2 (17:37→22:07)
[2020-12-07 17:46] LABS: Basophils # (A) 0.1 k/uL (0-0.2); Basophils % (A) 0 %; Eosinophils # (A) 0.1 k/uL (0-0.7); Eosinophils % (A) 1 %; HCT 42.1 % (34.0-46.0); HGB 14.6 gm/dL (11.4-16.0); Lymphocytes # (A) 2.4 k/uL (1.0-4.8); Lymphocytes % (A) 18 %; MCH 28.8 pg (25.0-35.0); MCHC 34.8 g/dL (31.0-37.0); MCV 82.9 fL (80.0-100.0); Mean Platelet Volume 7.1; Monocytes # (A) 0.7 k/uL (0-1.0); Monocytes % (A) 5 %; Neutrophils # (A) 10.4 k/uL (1.3-7.7); Neutrophils % (A) 75 %; Platelet Count 465 k/uL (150-450); RBC 5.07 m/uL (3.80-5.40); RDW 12.4 % (11.5-15.5); WBC 13.9 k/uL (3.8-10.6)
[2020-12-07 17:47] LABS: Appearance,Urine Clear (Clear); Bilirubin,Urine Negative (Negative); Blood,Urine Large (Negative); Color,Urine Yellow; Glucose,Urine (UA) Negative (Negative); Ketones,Urine 4+ (Negative); Leukocyte Esterase,Urine Negative (Negative); Mucus,Urine Rare /hpf; Nitrite,Urine Negative (Negative); Protein,Urine 1+ (Negative); RBC,Urine 101 /hpf (0-5); Specific Gravity,Urine 1.026 (1.001-1.035); Squamous Epithelial Cell,Urine 1 /hpf (0-4); WBC,Urine 3 /hpf (0-5)
[2020-12-07 17:55] LABS: ALT 28 U/L (4-34); AST 31 U/L (14-36); African American GFR (CKD) >90 (>60 ml/min/1.73 sqM); Albumin 4.6 g/dL (3.5-5.0); Alcohol <10 mg/dL; Alkaline Phosphatase 64 U/L (38-126); Amylase 124 U/L (30-110); Anion Gap 13 mmol/L; Blood Urea Nitrogen 12 mg/dL (7-17); Calcium 9.9 mg/dL (8.4-10.2); Carbon Dioxide 23 mmol/L (22-30); Chloride 100 mmol/L (98-107); Glucose 164 mg/dL (74-99); Lipase 176 U/L (23-300); Non-African American GFR(CKD) >90 (>60 ml/min/1.73 sqM); Potassium 3.5 mmol/L (3.5-5.1); Sodium 136 mmol/L (137-145); Total Bilirubin 0.9 mg/dL (0.2-1.3); Total Protein 7.4 g/dL (6.3-8.2)
[2020-12-07 17:56] LABS: Amphetamine Screen,Urine Not Detected (NotDetected); Barbiturate Screen,Urine Not Detected (NotDetected); Benzodiazepines Screen,Urine Not Detected (NotDetected); Cocaine Screen,Urine Not Detected (NotDetected); Methadone Screen, Urine Not Detected (NotDetected); Opiate Screen,Urine Detected (NotDetected); Oxycodone Screen, Urine Not Detected (NotDetected); Phencyclidine Screen,Urine Not Detected (NotDetected); Tricyclic Antidepressant,Urine Not Detected (NotDetected); Urn Cannabinoid Scrn Detected (NotDetected)
--- NOTE | 2020-12-07 18:29 | XR ---
EXAMINATION TYPE: XR KUB DATE OF EXAM: 12/07/2020 COMPARISON: 02/24/2020 HISTORY: Abdominal pain TECHNIQUE: 2 views upright FINDINGS: There is no sign of intestinal obstruction or pneumoperitoneum. Fecal pattern is normal. Th ere is no evidence of a mass. Lung bases are clear. IMPRESSION: Nonacute abdomen. No change.
[2020-12-07 18:37] VITALS: RESP 18
[2020-12-07 22:13] VITALS: BP 127/82; PULSE 92; TEMP 98
== END 2020-12-07 22:03 | disposition home or self-care (01) ==
LOC: EC 16:31
DX: F32.9 Major depressive disorder, single episode, unspecified (principal); F43.21 Adjustment disorder with depressed mood; R11.2 Nausea with vomiting, unspecified; E11.9 Type 2 diabetes mellitus without complications; I10 Essential (primary) hypertension; Z87.891 Personal history of nicotine dependence; F12.90 Cannabis use, unspecified, uncomplicated
CPT/HCPCS: 82075; 36415; 80053; 82150; 83690; 85025; 81001; 80306; 80320; 74018; 99285; 96374; 96375 ×2; 96361 ×2; J2060; J2765

== ENCOUNTER 2020-12-09 10:42 | Observation (INO) | payer BC ==
[2020-12-09] MEDS ORDERED: MORPHINE SULFATE 4 MG/ML SYRINGE IV STA (11:16)
[2020-12-09] MEDS ORDERED: SODIUM CHLORIDE 0.9% 1,000 ML IV STA (11:16)
[2020-12-09] MEDS ORDERED: ONDANSETRON 4 MG/2 ML VIAL IVP STA (11:16)
[2020-12-09 11:56] LABS: Basophils # (A) 0.1 k/uL (0-0.2); Basophils % (A) 1 %; Eosinophils # (A) 0.1 k/uL (0-0.7); Eosinophils % (A) 1 %; HCT 45.9 % (34.0-46.0); HGB 15.7 gm/dL (11.4-16.0); Lymphocytes # (A) 2.2 k/uL (1.0-4.8); Lymphocytes % (A) 19 %; MCH 28.7 pg (25.0-35.0); MCHC 34.2 g/dL (31.0-37.0); MCV 83.8 fL (80.0-100.0); Mean Platelet Volume 6.9; Monocytes # (A) 0.4 k/uL (0-1.0); Monocytes % (A) 3 %; Neutrophils # (A) 8.7 k/uL (1.3-7.7); Neutrophils % (A) 75 %; Platelet Count 463 k/uL (150-450); RBC 5.48 m/uL (3.80-5.40); RDW 12.1 % (11.5-15.5); WBC 11.7 k/uL (3.8-10.6)
[2020-12-09 12:16] LABS: ALT 33 U/L (4-34); AST 28 U/L (14-36); African American GFR (CKD) >90 (>60 ml/min/1.73 sqM); Albumin 4.6 g/dL (3.5-5.0); Alkaline Phosphatase 52 U/L (38-126); Amylase 250 U/L (30-110); Anion Gap 9 mmol/L; Blood Urea Nitrogen 12 mg/dL (7-17); Calcium 10.1 mg/dL (8.4-10.2); Carbon Dioxide 30 mmol/L (22-30); Chloride 97 mmol/L (98-107); Glucose 148 mg/dL (74-99); Lipase 393 U/L (23-300); Non-African American GFR(CKD) >90 (>60 ml/min/1.73 sqM); Potassium 4.4 mmol/L (3.5-5.1); Sodium 136 mmol/L (137-145); Total Bilirubin 0.8 mg/dL (0.2-1.3); Total Protein 7.6 g/dL (6.3-8.2)
--- NOTE | 2020-12-09 12:18 | ED ---
General Adult HPI - General Chief complaint: Abdominal Pain Stated complaint: Abd pain Time Seen by Provider: 12/09/20 11:07 Source: patient, RN notes reviewed, old records reviewed Mode of arrival: ambulatory Limitations: no limitations - History of Present Illness Initial comments: 40-year-old female history of recurrent episodes of abdominal pain nausea vomiting presents with abdominal pain nausea vomiting. She she does state that she uses marijuana on a regular basis. She denies fever. Her pain is primarily epigastric and right upper quadrant. She was seen in this institution within the past week 2 times. With similar complaint. No diarrhea. - Related Data Home Medications Medication Instructions Recorded Confirmed amLODIPine BESYLATE/BENAZEPRIL 1 cap PO DAILY 05/24/20 12/07/20 [Lotrel 5-20 MG] Citalopram Hydrobromide [CeleXA] 20 mg PO DAILY 09/11/20 12/07/20 Rizatriptan Odt [[employer]] 10 mg PO DAILY PRN 12/06/20 12/07/20 Previous Rx's Medication Instructions Recorded Ondansetron Odt [Zofran Odt] 4 mg PO Q8HR PRN #10 tab 12/06/20 Allergies Allergy/AdvReac Type Severity Reaction Status Date / Time No Known Allergies Allergy Verified 12/09/20 10:53 Review of Systems ROS Statement: Those systems with pertinent positive or pertinent negative responses have been documented in the HPI. ROS Other: All systems not noted in ROS Statement are negative. Past Medical History Past Medical History: Diabetes Mellitus, Hypertension Additional Past Medical History / Comment(s): NIDDM type II/diagnosed about 1 year ago, occasional cervical pain/herniated discs, past UTI History of Any Multi-Drug Resistant Organisms: None Reported Additional Past Surgical History / Comment(s): liposuction and abdominoplasty Past Anesthesia/Blood Transfusion Reactions: Previous Problems w/ Anesthesia Additional Past Anesthesia/Blood Transfusion Reaction / Comment(s): Pt takes a long time waking. She has clausterphobia Past Psychological History: Anxiety Smoking Status: Former smoker Past Alcohol Use History: None Reported Past Drug Use History: Marijuana - Past Family History Mother History Unknown: Yes Additional Family Medical History / Comment(s): Mother of unknown causes at the age of 63yrs Father Family Medical History: CVA/TIA, Diabetes Mellitus, Hyperlipidemia, Hypertension Additional Family Medical History / Comment(s): Father is living. General Exam Limitations: no limitations General appearance: alert, in no apparent distress Head exam: Present: atraumatic, normocephalic Eye exam: Present: normal appearance ENT exam: Present: mucous membranes dry Neck exam: Present: normal inspection. Absent: tenderness, meningismus Respiratory exam: Present: normal lung sounds bilaterally. Absent: respiratory distress, wheezes Cardiovascular Exam: Present: regular rate, normal rhythm GI/Abdominal exam: Present: soft, tenderness. Absent: distended, guarding, rebound Extremities exam: Present: normal inspection, normal capillary refill. Absent: pedal edema Neurological exam: Present: alert, oriented X3, CN II-XII intact. Absent: motor sensory deficit Psychiatric exam: Present: normal affect, normal mood Skin exam: Present: warm, dry, intact. Absent: cyanosis, diaphoretic Course Vital Signs 12/09/20 10:51 Temperature 97.6 F Pulse Rate 98 Respiratory 20 Rate Blood Pressure 148/100 O2 Sat by Pulse 98 Oximetry Medical Decision Making - Medical Decision Making 40-year-old female with intractable nausea vomiting. Patient has had multiple ER visits, continues to have vomiting which I suspect may be related to cannabis hyperemesis. Workup today does reveal some mild leukocytosis, stable hemoglobin, normal electrolytes, mild lactic acid, she does have ketones in her urine consistent with dehydration. She will be admitted for continued IV hydration and symptomatic relief as she has persistent symptoms while in the emergency department despite treatment. - Lab Data Result diagrams: 12/09/20 11:37 12/09/20 11:37 Lab Results 12/09/20 12/09/20 12/09/20 Range/Units 11:37 11:37 11:37 WBC 11.7 H (3.8-10.6) k/uL RBC 5.48 H (3.80-5.40) m/uL Hgb 15.7 (11.4-16.0) gm/dL Hct 45.9 (34.0-46.0) % MCV 83.8 (80.0-100.0) fL MCH 28.7 (25.0-35.0) pg MCHC 34.2 (31.0-37.0) g/dL RDW 12.1 (11.5-15.5) % Plt Count 463 H (150-450) k/uL MPV 6.9 Neutrophils % 75 % Lymphocytes % 19 % Monocytes % 3 % Eosinophils % 1 % Basophils % 1 % Neutrophils # 8.7 H (1.3-7.7) k/uL Lymphocytes # 2.2 (1.0-4.8) k/uL Monocytes # 0.4 (0-1.0) k/uL Eosinophils # 0.1 (0-0.7) k/uL Basophils # 0.1 (0-0.2) k/uL Sodium 136 L (137-145) mmol/L Potassium 4.4 (3.5-5.1) mmol/L Chloride 97 L (98-107) mmol/L Carbon Dioxide 30 (22-30) mmol/L Anion Gap 9 mmol/L BUN 12 (7-17) mg/dL Creatinine 0.57 (0.52-1.04) mg/dL Est GFR (CKD-EPI)AfAm >90 (>60 ml/min/1.73 sqM) Est GFR (CKD-EPI)NonAf >90 (>60 ml/min/1.73 sqM) Glucose 148 H (74-99) mg/dL Plasma Lactic Acid Vamsi (0.7-2.0) mmol/L Calcium 10.1 (8.4-10.2) mg/dL Total Bilirubin 0.8 (0.2-1.3) mg/dL AST 28 (14-36) U/L ALT 33 (4-34) U/L Alkaline Phosphatase 52 (38-126) U/L Total Protein 7.6 (6.3-8.2) g/dL Albumin 4.6 (3.5-5.0) g/dL Amylase 250 H (30-110) U/L Lipase 393 H (23-300) U/L Urine Color Yellow Urine Appearance Turbid H (Clear) Urine pH 7.5 (5.0-8.0) Ur Specific [place] 1.018 (1.001-1.035) Urine Protein Trace H (Negative) Urine Glucose (UA) Negative (Negative) Urine Ketones 1+ H (Negative) Urine Blood Negative (Negative) Urine Nitrite Negative (Negative) Urine Bilirubin Negative (Negative) Urine Urobilinogen 2.0 (<2.0) mg/dL Ur Leukocyte Esterase Negative (Negative) Urine WBC 1 (0-5) /hpf Ur Squamous Epith Cells 1 (0-4) /hpf Amorphous Sediment Few H (None) /hpf Urine Mucus Occasional H (None) /hpf 12/09/20 Range/Units 11:37 WBC (3.8-10.6) k/uL RBC (3.80-5.40) m/uL Hgb (11.4-16.0) gm/dL Hct (34.0-46.0) % MCV (80.0-100.0) fL MCH (25.0-35.0) pg MCHC (31.0-37.0) g/dL RDW (11.5-15.5) % Plt Count (150-450) k/uL MPV Neutrophils % % Lymphocytes % % Monocytes % % Eosinophils % % Basophils % % Neutrophils # (1.3-7.7) k/uL Lymphocytes # (1.0-4.8) k/uL Monocytes # (0-1.0) k/uL Eosinophils # (0-0.7) k/uL Basophils # (0-0.2) k/uL Sodium (137-145) mmol/L Potassium (3.5-5.1) mmol/L Chloride (98-107) mmol/L Carbon Dioxide (22-30) mmol/L Anion Gap mmol/L BUN (7-17) mg/dL Creatinine (0.52-1.04) mg/dL Est GFR (CKD-EPI)AfAm (>60 ml/min/1.73 sqM) Est GFR (CKD-EPI)NonAf (>60 ml/min/1.73 sqM) Glucose (74-99) mg/dL Plasma Lactic Acid Vamsi 2.7 H* (0.7-2.0) mmol/L Calcium (8.4-10.2) mg/dL Total Bilirubin (0.2-1.3) mg/dL AST (14-36) U/L ALT (4-34) U/L Alkaline Phosphatase (38-126) U/L Total Protein (6.3-8.2) g/dL Albumin (3.5-5.0) g/dL Amylase (30-110) U/L Lipase (23-300) U/L Urine Color Urine Appearance (Clear) Urine pH (5.0-8.0) Ur Specific [place] (1.001-1.035) Urine Protein (Negative) Urine Glucose (UA) (Negative) Urine Ketones (Negative) Urine Blood (Negative) Urine Nitrite (Negative) Urine Bilirubin (Negative) Urine Urobilinogen (<2.0) mg/dL Ur Leukocyte Esterase (Negative) Urine WBC (0-5) /hpf Ur Squamous Epith Cells (0-4) /hpf Amorphous Sediment (None) /hpf Urine Mucus (None) /hpf Disposition Clinical Impression: Intractable vomiting with nausea Disposition: ADMITTED IP TO THIS [facility] Condition: Stable Is patient prescribed a controlled substance at d/c from ED?: No Referrals: Sandy Roper MD [Primary Care Provider] - 1-2 days Decision to Admit Reason: Admit from EC Decision Date: 12/09/20 Decision Time: 12:40
[2020-12-09 12:23] LABS: Amorphous Sediment,Urine Few /hpf; Appearance,Urine Turbid (Clear); Bilirubin,Urine Negative (Negative); Blood,Urine Negative (Negative); Color,Urine Yellow; Glucose,Urine (UA) Negative (Negative); Ketones,Urine 1+ (Negative); Leukocyte Esterase,Urine Negative (Negative); Mucus,Urine Occasional /hpf; Nitrite,Urine Negative (Negative); PH, Urine 7.5 (5.0-8.0); Protein,Urine Trace (Negative); Specific Gravity,Urine 1.018 (1.001-1.035); Squamous Epithelial Cell,Urine 1 /hpf (0-4); WBC,Urine 1 /hpf (0-5)
[2020-12-09] MEDS ORDERED: NALOXONE 0.4 MG/ML 1 ML VIAL IV PRN ×2 (12:38→13:34)
[2020-12-09] MEDS ORDERED: MORPHINE SULFATE 4 MG/ML SYRINGE IV PRN (12:38)
[2020-12-09] MEDS ORDERED: ACETAMINOPHEN TAB 325 MG TAB PO PRN (12:38)
[2020-12-09] MEDS ORDERED: ONDANSETRON 4 MG/2 ML VIAL IVP PRN (12:38)
--- NOTE | 2020-12-09 13:47 | P.HPIM ---
History of Present Illness H&P Date: 12/09/20 Chief Complaint: abdominal pain 40-year-old female with history of recurrent episodes of abdominal pain, nausea, vomiting presents with abdominal pain, nausea and vomiting. She uses marijuana on a regular basis. No fevers. Her pain is primarily epigastric and in the right upper quadrant. She was seen in the ER 3 days ago for the same. Feels generally weak, dizzy. No sob or cp. No diarrhea. Work up in the ER was significant for slightly elevated amylase and lipase. WBC 11.7. Rest of the labs ok. She was admitted for intractable N/V and treatment of dehydration. Review of Systems Complete review of system performed. Pertinent positives per HPI, otherwise negative. Past Medical History Past Medical History: Diabetes Mellitus, Hypertension Additional Past Medical History / Comment(s): NIDDM type II/diagnosed about 1 year ago, occasional cervical pain/herniated discs, past UTI History of Any Multi-Drug Resistant Organisms: None Reported Additional Past Surgical History / Comment(s): liposuction and abdominoplasty Past Anesthesia/Blood Transfusion Reactions: Previous Problems w/ Anesthesia Additional Past Anesthesia/Blood Transfusion Reaction / Comment(s): Pt takes a long time waking. She has clausterphobia Past Psychological History: Anxiety Smoking Status: Former smoker Past Alcohol Use History: None Reported Past Drug Use History: Marijuana - Past Family History Mother History Unknown: Yes Additional Family Medical History / Comment(s): Mother of unknown causes at the age of 63yrs Father Family Medical History: CVA/TIA, Diabetes Mellitus, Hyperlipidemia, Hypertension Additional Family Medical History / Comment(s): Father is living. Medications and Allergies Home Medications Medication Instructions Recorded Confirmed Type amLODIPine BESYLATE/BENAZEPRIL 1 cap PO DAILY 05/24/20 12/09/20 History [Lotrel 5-20 MG] Citalopram Hydrobromide [CeleXA] 20 mg PO DAILY 09/11/20 12/09/20 History Allergies Allergy/AdvReac Type Severity Reaction Status Date / Time No Known Allergies Allergy Verified 12/09/20 13:22 Physical Exam Vitals: Vital Signs Temp Pulse Resp BP Pulse Ox 12/09/20 10:51 97.6 F 98 20 148/100 98 Intake and Output 12/08/20 12/09/20 12/09/20 22:59 06:59 14:59 Other: Weight 88.451 kg Constitutional: No acute distress, conversant, pleasant Eyes:Anicteric sclerae, moist conjunctiva, no lid-lag, PERRLA, ENMT: Oropharynx clear, no erythema, exudates Neck: Supple, FROM, no masses, or JVD, No carotid bruits, No thyromegaly Lungs: Clear to auscultation, Clear to percussion, Normal respiratory effort, no accessory muscle use Cardiovascular: Heart regular in rate and rhythm, No murmurs, gallops, or rubs, No peripheral edema Abdominal: Soft, tender in the RUQ and epigastric areas, no guarding, rebound or rigidity, Normoactive bowel sounds, No hepatomegaly, No splenomegaly, No palpable mass Skin: Normal temperature, tone, texture, turgor, no induration, No subcutaneous nodules, No rash, lesions, No ulcers Extremities: No digital cyanosis, No clubbing, Pedal pulses intact and symmetrical, Radial pulses intact and symmetrical, No calf tenderness Psychiatric: Alert and oriented to person, place and time, appropriate affect, intact judgement Neuro: Muscles Strength 5/5 in all 4 extremities, Sensation to light touch grossly present throughout, Cranial nerves II-XII grossly intact, no focal sensory deficits Results CBC & Chem 7: 12/09/20 11:37 12/09/20 11:37 Labs: Abnormal Lab Results - Last 24 Hours (Table) 12/09/20 12/09/20 12/09/20 Range/Units 11:37 11:37 11:37 WBC 11.7 H (3.8-10.6) k/uL RBC 5.48 H (3.80-5.40) m/uL Plt Count 463 H (150-450) k/uL Neutrophils # 8.7 H (1.3-7.7) k/uL Sodium 136 L (137-145) mmol/L Chloride 97 L (98-107) mmol/L Glucose 148 H (74-99) mg/dL Plasma Lactic Acid Vamsi (0.7-2.0) mmol/L Amylase 250 H (30-110) U/L Lipase 393 H (23-300) U/L Urine Appearance Turbid H (Clear) Urine Protein Trace H (Negative) Urine Ketones 1+ H (Negative) Amorphous Sediment Few H (None) /hpf Urine Mucus Occasional H (None) /hpf 12/09/20 Range/Units 11:37 WBC (3.8-10.6) k/uL RBC (3.80-5.40) m/uL Plt Count (150-450) k/uL Neutrophils # (1.3-7.7) k/uL Sodium (137-145) mmol/L Chloride (98-107) mmol/L Glucose (74-99) mg/dL Plasma Lactic Acid Vamsi 2.7 H* (0.7-2.0) mmol/L Amylase (30-110) U/L Lipase (23-300) U/L Urine Appearance (Clear) Urine Protein (Negative) Urine Ketones (Negative) Amorphous Sediment (None) /hpf Urine Mucus (None) /hpf Assessment and Plan Plan: Intractable nausea and vomiting/abdominal pain U/S GB to r/o gallbladder disease causing her symptoms Follow amylase and lipase in am Clear liquid diet. IV fluids Cyclical vomiting syndrome Likely sec to marijuana use Counseled to quit Diabetes Diet controlled HTN Depression Controlled, continue meds Admitted to observation.
[2020-12-09] MEDS: SODIUM CHLORIDE 0.9% 1,000 ML IV SCH (15:30)
[2020-12-09] MEDS: PROCHLORPERAZINE INJ 10 MG/2 ML VIAL IVP PRN ×2 (16:47→23:52)
[2020-12-10] MEDS: SODIUM CHLORIDE 0.9% 1,000 ML IV SCH ×3 (02:00→12:13)
[2020-12-10 04:29] LABS: Basophils # (A) 0.1 k/uL (0-0.2); Basophils % (A) 1 %; Eosinophils # (A) 0.3 k/uL (0-0.7); Eosinophils % (A) 5 %; HCT 39.4 % (34.0-46.0); HGB 13.3 gm/dL (11.4-16.0); Lymphocytes % (A) 39 %; MCH 28.7 pg (25.0-35.0); MCHC 33.7 g/dL (31.0-37.0); MCV 85.1 fL (80.0-100.0); Mean Platelet Volume 6.7; Monocytes # (A) 0.3 k/uL (0-1.0); Monocytes % (A) 4 %; Neutrophils # (A) 3.8 k/uL (1.3-7.7); Neutrophils % (A) 49 %; Platelet Count 352 k/uL (150-450); RBC 4.63 m/uL (3.80-5.40); RDW 12.9 % (11.5-15.5); WBC 7.7 k/uL (3.8-10.6)
[2020-12-10 04:47] LABS: ALT 22 U/L (4-34); AST 20 U/L (14-36); African American GFR (CKD) >90 (>60 ml/min/1.73 sqM); Albumin 3.4 g/dL (3.5-5.0); Alkaline Phosphatase 42 U/L (38-126); Anion Gap 6 mmol/L; Blood Urea Nitrogen 5 mg/dL (7-17); Calcium 8.9 mg/dL (8.4-10.2); Carbon Dioxide 29 mmol/L (22-30); Chloride 103 mmol/L (98-107); Glucose 103 mg/dL (74-99); Non-African American GFR(CKD) >90 (>60 ml/min/1.73 sqM); Phosphorus 4.5 mg/dL (2.5-4.5); Potassium 3.9 mmol/L (3.5-5.1); Sodium 138 mmol/L (137-145); Total Bilirubin 0.4 mg/dL (0.2-1.3)
[2020-12-10 06:21] LABS: Amylase 369 U/L (30-110)
[2020-12-10] MEDS: CITALOPRAM HYDROBROMIDE 20 MG TAB PO SCH (07:58)
[2020-12-10] MEDS: amLODIPine 5 MG TAB PO SCH ×2 (07:58→19:45)
[2020-12-10] MEDS: lisinopriL 20 MG TAB PO SCH ×2 (07:58→19:45)
[2020-12-10] MEDS: PANTOPRAZOLE 40 MG/10 ML VIAL IV SCH (07:58)
[2020-12-10 08:02] VITALS: RESP 18
--- NOTE | 2020-12-10 09:31 | P.PN ---
Subjective Progress Note Date: 12/10/20 Principal diagnosis: abdominal pain Feeling better today. Still with a little abdominal discomfort in the epigastric and RUQ areas. No nausea or vomiting. No fevers or chills. Objective - Vital Signs Vital signs: Vital Signs Temp 98.4 F 12/10/20 08:00 Pulse 88 12/10/20 08:00 Resp 18 12/10/20 08:00 BP 106/73 12/10/20 08:00 Pulse Ox 100 12/10/20 01:31 Intake & Output 12/09/20 12/10/20 12/10/20 18:59 06:59 18:59 Intake Total 1660 Balance 1660 Weight 88.451 kg Intake: Oral 1660 Other: Voiding Method Toilet # Voids 1 3 2 - Exam Constitutional: No acute distress, conversant, pleasant Eyes:Anicteric sclerae, moist conjunctiva, no lid-lag, PERRLA, ENMT: Oropharynx clear, no erythema, exudates Neck: Supple, FROM, no masses, or JVD, No carotid bruits, No thyromegaly Lungs: Clear to auscultation, Clear to percussion, Normal respiratory effort, no accessory muscle use Cardiovascular: Heart regular in rate and rhythm, No murmurs, gallops, or rubs, No peripheral edema Abdominal: Soft, Nontender, no guarding, rebound or rigidity, Normoactive bowel sounds, No hepatomegaly, No splenomegaly, No palpable mass Skin: Normal temperature, tone, texture, turgor, no induration, No subcutaneous nodules, No rash, lesions, No ulcers Extremities: No digital cyanosis, No clubbing, Pedal pulses intact and symmetri daniela, Radial pulses intact and symmetrical, No calf tenderness Psychiatric: Alert and oriented to person, place and time, appropriate affect, intact judgement Neuro: Muscles Strength 5/5 in all 4 extremities, Sensation to light touch grossly present throughout, Cranial nerves II-XII grossly intact, no focal sensory deficits - Labs CBC & Chem 7: 12/10/20 03:18 12/10/20 03:18 Labs: Abnormal Lab Results - Last 24 Hours (Table) 12/09/20 12/09/20 12/09/20 Range/Units 11:37 11:37 11:37 WBC 11.7 H (3.8-10.6) k/uL RBC 5.48 H (3.80-5.40) m/uL Plt Count 463 H (150-450) k/uL Neutrophils # 8.7 H (1.3-7.7) k/uL Sodium 136 L (137-145) mmol/L Chloride 97 L (98-107) mmol/L BUN (7-17) mg/dL Creatinine (0.52-1.04) mg/dL Glucose 148 H (74-99) mg/dL Plasma Lactic Acid Vamsi (0.7-2.0) mmol/L Total Protein (6.3-8.2) g/dL Albumin (3.5-5.0) g/dL Amylase 250 H (30-110) U/L Lipase 393 H (23-300) U/L Urine Appearance Turbid H (Clear) Urine Protein Trace H (Negative) Urine Ketones 1+ H (Negative) Amorphous Sediment Few H (None) /hpf Urine Mucus Occasional H (None) /hpf 12/09/20 12/10/20 12/10/20 Range/Units 11:37 03:18 03:18 WBC (3.8-10.6) k/uL RBC (3.80-5.40) m/uL Plt Count (150-450) k/uL Neutrophils # (1.3-7.7) k/uL Sodium (137-145) mmol/L Chloride (98-107) mmol/L BUN 5 L (7-17) mg/dL Creatinine 0.48 L (0.52-1.04) mg/dL Glucose 103 H (74-99) mg/dL Plasma Lactic Acid Vamsi 2.7 H* (0.7-2.0) mmol/L Total Protein 6.0 L (6.3-8.2) g/dL Albumin 3.4 L (3.5-5.0) g/dL Amylase 369 H* (30-110) U/L Lipase 1292 H (23-300) U/L Urine Appearance (Clear) Urine Protein (Negative) Urine Ketones (Negative) Amorphous Sediment (None) /hpf Urine Mucus (None) /hpf Assessment and Plan Plan: Intractable nausea and vomiting/abdominal pain, acute pancreatitis U/S GB done in the previous ER visit was ok . Follow amylase and lipase in am Check abdomen pelvis CT Check lipid panel with TG. Clear liquid diet. IV fluids Cyclical vomiting syndrome Likely sec to marijuana use Counseled to quit Diabetes Diet controlled HTN Depression Controlled, continue meds Anticipated discharge 1-2 days Dispo: home.
--- NOTE | 2020-12-10 10:56 | CT ---
EXAMINATION TYPE: CT abdomen pelvis w con DATE OF EXAM: 12/10/2020 HISTORY: 40-year-old female with given indication of pancreatitis CT DLP: 1012.4mGycm Automated Exposure Control for Dose Reduction was Utilized. CONTRAST: CT scan of the abdomen and pelvis is performed with IV Contrast, patient injected with 100 mL of Isov ue 370. COMPARISON: 09/11/2020 and prior FINDINGS: LUNG BASES: No significant abnormality is appreciated. INCLUDED CARDIAC STRUCTURES: Within normal limits. LIVER: No significant abnormality is appreciated. GALLBLADDER : No significant abnormality is appreciated. BILIARY TREE: No abnormal biliary tree dilation. PANCREAS: No pancreatic enlargement. Pancreatic parenchyma has a normal pattern of enhancement. Some fatty changes are seen in the pancreatic head which were present on prior study. No main pancreatic d uctal dilatation. No peripancreatic fluid collections seen. SPLEEN: No significant abnormality is seen. ADRENALS: Mild thickening of the medial limb of the left adrenal gland which was seen on most recent prior study. Right adrenal gland normal. KIDNEYS AND URETERS: No significant abnormality is seen. URINARY BLADDER: No significant abnormality is appreciated. ESOPHAGUS: No significant abnormality is seen. STOMACH: There is a small outpouching from the posterior wall of the stomach seen on series 3 image 5 1, on prior study this was seen however was smaller. This likely represents a gastric diverticulum fr om the posterior fundus. SMALL BOWEL: There may be a small duodenal diverticulum. The small bowel is normal in caliber and cou rse. LARGE BOWEL: A few scattered diverticula are noted in the distal transverse colon and proximal descen ding colon. No evidence of acute diverticulitis. No evidence of bowel obstruction. APPENDIX: Normal in appearance. HERNIAS: No evidence of hernia. UTERUS/ADNEXA: There is a heterogeneous appearance to the cervix which was not seen on prior study. T here is a dominant follicle or follicular cyst in the left ovary measuring up to 2.6 cm not significa ntly changed since prior study. PERITONEUM/MESENTRY: No pneumoperitoneum or ascites. LYMPH NODES: No enlarged retroperitoneal or pelvic lymph nodes are appreciated. MAJOR VASCULAR STRUCTURES: Nonaneurysmal aorta. Unremarkable inferior vena cava. OSSEOUS STRUCTURES: No aggressive osseous lesion. Moderate degenerative changes seen at L5-S1 with sl ight posterior translation at the same level. SOFT TISSUE: A calcification seen in the lower abdominal wall at the midline with adjacent scarring c hanges. IMPRESSION: 1. No pneumoperitoneum ascites or bowel obstruction. 2. No CT evidence of acute appendicitis. 3. Small gastric diverticulum, possibly small duodenal diverticulum. No significant change since most recent prior. 4.Mild thickening of the medial limb of the left adrenal gland which appears stable since 05/01/2018. 5. Scattered diverticula in the transverse and a descending colon with no acute diverticulitis. 6. Nonspecific heterogeneous appearance of the cervix difficult to further characterize, recommend fo llow-up with outpatient pelvic ultrasound.
[2020-12-10 14:14] LABS: Hemoglobin A1C 5.2 % (4.0-6.0)
[2020-12-10 14:58] VITALS: BMI 32.4
[2020-12-10 16:29] LABS: Chol/HDL Ratio 3.55; LDL Cholesterol,Calculated 71.4 mg/dL (0.0-131.0); VLDL Calculation 40.6 mg/dL (5.00-40.00)
[2020-12-10] MEDS ORDERED: hydrALAZINE HCL 25 MG TAB PO ONE (23:00)
[2020-12-11] MEDS: SODIUM CHLORIDE 0.9% 1,000 ML IV SCH ×3 (02:20→08:12)
[2020-12-11 06:35] LABS: ALT 40 U/L (4-34); AST 36 U/L (14-36); African American GFR (CKD) >90 (>60 ml/min/1.73 sqM); Albumin 3.9 g/dL (3.5-5.0); Alkaline Phosphatase 48 U/L (38-126); Anion Gap 6 mmol/L; Blood Urea Nitrogen 2 mg/dL (7-17); Calcium 9.6 mg/dL (8.4-10.2); Carbon Dioxide 30 mmol/L (22-30); Chloride 103 mmol/L (98-107); Glucose 110 mg/dL (74-99); Lipase 47 U/L (23-300); Non-African American GFR(CKD) >90 (>60 ml/min/1.73 sqM); Potassium 4.5 mmol/L (3.5-5.1); Sodium 139 mmol/L (137-145); Total Bilirubin 0.5 mg/dL (0.2-1.3); Total Protein 6.6 g/dL (6.3-8.2)
[2020-12-11] MEDS: PANTOPRAZOLE 40 MG/10 ML VIAL IV SCH (08:06)
[2020-12-11] MEDS: CITALOPRAM HYDROBROMIDE 20 MG TAB PO SCH (08:06)
[2020-12-11] MEDS: lisinopriL 20 MG TAB PO SCH (08:07)
[2020-12-11] MEDS: amLODIPine 5 MG TAB PO SCH (08:07)
[2020-12-11 08:10] VITALS: BP 134/84; PULSE 71; TEMP 98.2
--- NOTE | 2020-12-11 09:08 | P.DS ---
Providers Date of admission: 12/09/20 13:34 Expected date of discharge: 12/11/20 Attending physician: Benny Hernández MD Consults: 12/09/20 16:03 Consult Physician Routine Consulting Provider: Psychiatry - [facility] Psychiatry Consult Reason/Comments: depressive suicidal thoughts, r/t symptoms of illness. no current plan Do you want consulting provider notified?: Already Contacted Primary care physician: Sandy Roper [facility] Course: 40-year-old female with history of recurrent episodes of abdominal pain, nausea, vomiting presents with abdominal pain, nausea and vomiting. She uses marijuana on a regular basis. No fevers. Her pain is primarily epigastric and in the right upper quadrant. She was seen in the ER 3 days ago for the same. Feels generally weak, dizzy. No sob or cp. No diarrhea. Work up in the ER was significant for slightly elevated amylase and lipase. WBC 11.7. Rest of the labs ok. She was admitted for intractable N/V and treatment of dehydration. she was started on IV fluids. Next day in the hospitalization lipase bumped up to around 1300. Acute pancreatitis was confirmed. Patient did have a RUQ ultrasound done 3 days prior to admission and it was looking okay. no gallstones or gallbladder issues were found. Computed tomography scan of the abdomen was done and that did not show any acute intra-abdominal pathology either. Lipid profile was sent and that showed slightly elevated triglycerides around 200 that does not explain recurrent pancreatitis. I told the patient that her marijuana use is most likely contributing to her symptoms. I advised her that she cut down significantly on its use. She verbalized understanding. Currently her lipase is back to normal and she is tolerating food. She will be discharged home in a stable condition. Patient Condition at Discharge: Stable Plan - Discharge Summary Discharge Rx Participant: Yes New Discharge Prescriptions: Continue amLODIPine BESYLATE/BENAZEPRIL [Lotrel 5-20 MG] 1 cap PO DAILY Citalopram Hydrobromide [CeleXA] 20 mg PO DAILY Discharge Medication List amLODIPine BESYLATE/BENAZEPRIL [Lotrel 5-20 MG] 1 cap PO DAILY 05/24/20 [History] Citalopram Hydrobromide [CeleXA] 20 mg PO DAILY 09/11/20 [History] Follow up Appointment(s)/Referral(s): Sandy Roper MD [Primary Care Provider] - 1-2 days
== END 2020-12-11 09:59 | disposition home or self-care (01) ==
LOC: EC 10:42 → 6PED 13:34
PROVIDERS: ADMIT Internal Medicine; ATTEND Internal Medicine
DX: K85.90 Acute pancreatitis without necrosis or infection, unspecified (principal); E86.0 Dehydration; R11.15 Cyclical vomiting syndrome unrelated to migraine; F12.90 Cannabis use, unspecified, uncomplicated; K31.4 Gastric diverticulum; K57.30 Diverticulosis of large intestine without perforation or abscess without bleeding; E11.9 Type 2 diabetes mellitus without complications; I10 Essential (primary) hypertension; F32.9 Major depressive disorder, single episode, unspecified; F41.9 Anxiety disorder, unspecified; R45.851 Suicidal ideations; M50.20 Other cervical disc displacement, unspecified cervical region; E78.1 Pure hyperglyceridemia; Z79.899 Other long term (current) drug therapy; Z87.440 Personal history of urinary (tract) infections; Z98.890 Other specified postprocedural states; Z87.891 Personal history of nicotine dependence; Z83.3 Family history of diabetes mellitus; Z82.3 Family history of stroke; Z83.49 Family history of other endocrine, nutritional and metabolic diseases; Z82.49 Family history of ischemic heart disease and other diseases of the circulatory system
CPT/HCPCS: 96361 ×3; 96375 ×3; 96376 ×2; 96374; 99285; 36415; 80061; 80053 ×3; 82150 ×2; 83605; 83690 ×3; 83735; 84100; 85025 ×2; 81001; 83036; 74177; G0378 ×3; J2270; J0780; J2405; C9113 ×2; Q9967

== ENCOUNTER → 2021-08-29 | Outpatient (CLI) | payer BC ==
[2021-08-29 23:42] LABS: ALT 18 U/L (8-44); AST 13 U/L (13-35); African American GFR (CKD) 129.7 (60.0-200.0); Albumin 4.6 g/dL (3.8-4.9); Albumin/Globulin Ratio 1.66 (1.60-3.17); Alkaline Phosphatase 48 U/L (41-126); BUN/Creat Ratio 23.15 Ratio (12.00-20.00); Blood Urea Nitrogen 14.7 mg/dL (9.0-27.0); Calcium 9.8 mg/dL (8.7-10.3); Carbon Dioxide 22.7 mmol/L (20.0-27.5); Chloride 104 mmol/L (96-109); Chol/HDL Ratio 4.76 Ratio; Globulin 2.8 g/dL (1.6-3.3); Glucose 111 mg/dL (70-110); LDL Cholesterol,Calculated 128.8 mg/dL (0.0-131.0); Non-African American GFR(CKD) 111.9 (60.0-200.0); Sodium 140 mmol/L (135-145); Total Protein 7.3 g/dL (6.2-8.2)
== END | disposition home or self-care (01) ==
LOC: LABWHC1 13:37
PROVIDERS: ATTEND Internal Medicine Endocrinology, Diabetes & Metabolism
DX: E11.9 Type 2 diabetes mellitus without complications (principal)
CPT/HCPCS: 36415; 80053; 80061; 82043; 82570; 83036; 84443

== ENCOUNTER 2022-10-06 14:46 | Emergency (ER) | payer BC ==
[2022-10-06 15:01] VITALS: BP 137/76; TEMP 98.5
[2022-10-06] MEDS ORDERED: SODIUM CHLORIDE 0.9% 1,000 ML IV STA ×2 (15:20)
[2022-10-06] MEDS ORDERED: ONDANSETRON 4 MG/2 ML VIAL IVP STA (15:20)
[2022-10-06] MEDS ORDERED: MORPHINE SULFATE 4 MG/ML SYRINGE IVP STA (16:03)
[2022-10-06] MEDS ORDERED: KETOROLAC 15 MG/ML 1 ML VIAL IVP STA (16:03)
--- NOTE | 2022-10-06 16:03 | ED ---
Abdominal Pain HPI - General Chief Complaint: Abdominal Pain Stated Complaint: Vomiting Time Seen by Provider: 10/06/22 15:20 Source: patient, RN notes reviewed, old records reviewed Mode of arrival: ambulatory Limitations: no limitations - History of Present Illness Initial Comments: This is a 42-year-old female to the emergency department for evaluation today. She is presented today for evaluation regards to overall not feeling well. Severe abdominal pain, weakness, nausea. No history of abdominal surgery, she does have history of pancreatitis. She is on antidepressant medication with no recent changes in medications. No fevers no travel history no sick contacts no other complaints, significant nausea with vomiting MD Complaint: abdominal pain -: hour(s), days(s) Location: diffuse, periumbilical, epigastric Radiation: epigastric Migration to: epigastric, suprapubic Severity: moderate Severity scale (1-10): 7 Quality: sharp Consistency: constant Improves With: nothing Worsens With: nothing Associated Symptoms: nausea Treatments Prior to Arrival: other (0) - Related Data Home Medications Medication Instructions Recorded Confirmed lisinopriL [Prinivil] 10 mg PO DAILY 06/02/21 06/02/21 Previous Rx's Medication Instructions Recorded Citalopram Hydrobromide [CeleXA] 40 mg PO DAILY 30 Days tab 06/05/21 Allergies Allergy/AdvReac Type Severity Reaction Status Date / Time No Known Allergies Allergy Verified 10/06/22 15:01 Review of Systems ROS Statement: Those systems with pertinent positive or pertinent negative responses have been documented in the HPI. ROS Other: All systems not noted in ROS Statement are negative. Past Medical History Past Medical History: Diabetes Mellitus, Hypertension Additional Past Medical History / Comment(s): NIDDM type II/diagnosed about 1 year ago, occasional cervical pain/herniated discs, past UTI History of Any Multi-Drug Resistant Organisms: None Reported Additional Past Surgical History / Comment(s): liposuction and abdominoplasty Past Anesthesia/Blood Transfusion Reactions: Previous Problems w/ Anesthesia Additional Past Anesthesia/Blood Transfusion Reaction / Comment(s): Pt takes a long time waking. She has clausterphobia Past Psychological History: Anxiety Smoking Status: Former smoker Past Alcohol Use History: None Reported Past Drug Use History: Marijuana - Past Family History Mother History Unknown: Yes Additional Family Medical History / Comment(s): Mother of unknown causes at the age of 63yrs Father Family Medical History: CVA/TIA, Diabetes Mellitus, Hyperlipidemia, Hypertension Additional Family Medical History / Comment(s): Father is living. General Exam Limitations: no limitations General appearance: alert, in no apparent distress Head exam: Present: atraumatic, normocephalic, normal inspection Eye exam: Present: normal appearance, PERRL, EOMI. Absent: scleral icterus, conjunctival injection, periorbital swelling ENT exam: Present: normal exam, mucous membranes moist Neck exam: Present: normal inspection. Absent: tenderness, meningismus, lymphadenopathy Respiratory exam: Present: normal lung sounds bilaterally. Absent: respiratory distress, wheezes, rales, rhonchi, stridor Cardiovascular Exam: Present: regular rate, normal rhythm, normal heart sounds. Absent: systolic murmur, diastolic murmur, rubs, gallop, clicks GI/Abdominal exam: Present: soft, tenderness, normal bowel sounds. Absent: distended, guarding, rebound, rigid Extremities exam: Present: normal inspection, full ROM, normal capillary refill. Absent: tenderness, pedal edema, joint swelling, calf tenderness Back exam: Present: normal inspection Neurological exam: Present: alert, oriented X3, CN II-XII intact Psychiatric exam: Present: normal affect, normal mood Skin exam: Present: warm, dry, intact, normal color. Absent: rash Course Vital Signs 10/06/22 10/06/22 14:57 19:06 Temperature 98.5 F Pulse Rate 69 73 Respiratory 18 16 Rate Blood Pressure 137/76 O2 Sat by Pulse 97 98 Oximetry - Reevaluation(s) Reevaluation #1: 10/06/22 17:07 Medical record is reviewed Reevaluation #2: 10/06/22 17:07 Patient symptoms are improved Reevaluation #3: 10/06/22 17:07 Patient informed results questions are answered Reevaluation #4: 10/06/22 17:07 Was pt. sent in by a medical professional or institution? @ -no Did you speak to anyone other than the patient for history? @ -no Did you review nursing and triage notes? @ -agree Were old charts reviewed? @ -no Differential Diagnosis? @ -prior EKG interpreted by me (3pts min.)? @ -no X-rays interpreted by me (1pt min.)? @ -no CT interpreted by me (1pt min.)? @ -no U/S interpreted by me (1pt. min.)? @ -no What testing was considered but not performed? (CT, X-rays, U/S, labs)? Why? @ -no What meds were considered but not given? Why? @ -no Did you discuss the management of the patient with other professionals? @ -no Did you reconcile home meds? @ -no Was smoking cessation discussed for >3mins.? @ -no Was critical care preformed (if so, how long)? @ -no Were there social determinants of health that impacted care today? How? (Homelessness, low income, unemployed, alcoholism, drug addiction, transportation, low edu. Level, literacy, decrease access to med. care, long-term, rehab)? @ -no Was there de-escalation of care discussed even if they declined? (Discuss DNR or withdrawal of care, Hospice)? @ -no What co-morbidities impacted this encounter? (DM, HTN, Smoking, COPD, CAD, Cancer, CVA, Hep., AIDS, mental health diagnosis, sleep apnea, morbid obesity)? @ -none Was patient admitted / discharged? @ -42 female with abdominal pain persistent nausea vomiting diarrhea although symptoms resolved and improved here in the ER no significant laboratory abnormalities and patient can be discharged home Discharged Undiagnosed new problem with uncertain prognosis? @ -no Drug Therapy requiring intensive monitoring for toxicity (Heparin, Nitro, Insulin, Cardizem)? @ -no Were any procedures done? @ -no Diagnosis/symptom? @ -Nausea vomiting diarrhea Acute, or Chronic, or Acute on Chronic? @ -no Uncomplicated (without systemic symptoms) or Complicated (systemic symptoms)? @ -uncomplicated Side effects of treatment? @ -no Exacerbation, Progression, or Severe Exacerbation] @ -no Poses a threat to life or bodily function? @ -no Reevaluation #5: 10/06/22 17:07 Differential Abdominal Pain Women: Appendicitis, Cholecystitis, diverticulosis, ischemic bowel, pancreatitis, hepatitis, UTI, gastroenteritis, AAA, incarcerated hernia, bowel obstruction, constipation, inflammatory bowel, hepatitis, peptic ulcer disease, splenic infarction, perforated viscus, vulvitis, ovarian torsion, PID, kidney stone, placenta abruption, this is not meant to be an all-inclusive list Medical Decision Making - Medical Decision Making 42 female to the emergency department with significant abdominal pain nausea vomiting, symptoms are improving here in the ER - Lab Data Result diagrams: 10/06/22 15:32 10/06/22 15:32 Lab Results 10/06/22 10/06/22 10/06/22 Range/Units 15:32 15:32 15:32 WBC 15.0 H (3.8-10.6) k/uL RBC 5.12 (3.80-5.40) m/uL Hgb 14.8 (11.4-16.0) gm/dL Hct 43.1 (34.0-46.0) % MCV 84.0 (80.0-100.0) fL MCH 28.8 (25.0-35.0) pg MCHC 34.3 (31.0-37.0) g/dL RDW 12.4 (11.5-15.5) % Plt Count 451 H (150-450) k/uL MPV 7.1 Neutrophils % 80 % Lymphocytes % 13 % Monocytes % 5 % Eosinophils % 0 % Basophils % 0 % Neutrophils # 12.1 H (1.3-7.7) k/uL Lymphocytes # 1.9 (1.0-4.8) k/uL Monocytes # 0.8 (0-1.0) k/uL Eosinophils # 0.0 (0-0.7) k/uL Basophils # 0.0 (0-0.2) k/uL Sodium 135 L (137-145) mmol/L Potassium 3.5 (3.5-5.1) mmol/L Chloride 92 L (98-107) mmol/L Carbon Dioxide 30 (22-30) mmol/L Anion Gap 13 mmol/L BUN 12 (7-17) mg/dL Creatinine 0.54 (0.52-1.04) mg/dL Est GFR (CKD-EPI)AfAm >90 (>60 ml/min/1.73 sqM) Est GFR (CKD-EPI)NonAf >90 (>60 ml/min/1.73 sqM) Glucose 134 H (74-99) mg/dL Calcium 9.9 (8.4-10.2) mg/dL Total Bilirubin 0.8 (0.2-1.3) mg/dL AST 21 (14-36) U/L ALT 21 (4-34) U/L Alkaline Phosphatase 55 (38-126) U/L Total Protein 7.7 (6.3-8.2) g/dL Albumin 4.7 (3.5-5.0) g/dL Amylase 233 H (30-110) U/L Lipase 452 H (23-300) U/L Urine Color Yellow Urine Appearance Clear (Clear) Urine pH 7.5 (5.0-8.0) Ur Specific [place] 1.021 (1.001-1.035) Urine Protein 1+ H (Negative) Urine Glucose (UA) Negative (Negative) Urine Ketones Negative (Negative) Urine Blood Negative (Negative) Urine Nitrite Negative (Negative) Urine Bilirubin Negative (Negative) Urine Urobilinogen <2.0 (<2.0) mg/dL Ur Leukocyte Esterase Negative (Negative) Urine RBC <1 (0-5) /hpf Urine WBC 1 (0-5) /hpf Ur Squamous Epith Cells 1 (0-4) /hpf Urine Mucus Occasional H (None) /hpf Acetone, Qual Negative (Negative) - Radiology Data Radiology results: report reviewed (Ultrasound gallbladder negative for acute disease), image reviewed Disposition Clinical Impression: Nausea & vomiting, Abdominal pain, Dehydration, Elevated transaminase level Disposition: HOME SELF-CARE Condition: Good Instructions (If sedation given, give patient instructions): Abdominal Pain (ED) Is patient prescribed a controlled substance at d/c from ED?: No Referrals: Sandy Roper MD [Primary Care Provider] - 1-2 days Time of Disposition: 17:40
[2022-10-06 16:06] LABS: Basophils % (A) 0 %; Eosinophils % (A) 0 %; HCT 43.1 % (34.0-46.0); HGB 14.8 gm/dL (11.4-16.0); Lymphocytes # (A) 1.9 k/uL (1.0-4.8); Lymphocytes % (A) 13 %; MCH 28.8 pg (25.0-35.0); MCHC 34.3 g/dL (31.0-37.0); Mean Platelet Volume 7.1; Monocytes # (A) 0.8 k/uL (0-1.0); Monocytes % (A) 5 %; Neutrophils # (A) 12.1 k/uL (1.3-7.7); Neutrophils % (A) 80 %; Platelet Count 451 k/uL (150-450); RBC 5.12 m/uL (3.80-5.40); RDW 12.4 % (11.5-15.5)
[2022-10-06 16:14] LABS: Appearance,Urine Clear (Clear); Bilirubin,Urine Negative (Negative); Blood,Urine Negative (Negative); Color,Urine Yellow; Glucose,Urine (UA) Negative (Negative); Ketones,Urine Negative (Negative); Leukocyte Esterase,Urine Negative (Negative); Mucus,Urine Occasional /hpf; Nitrite,Urine Negative (Negative); PH, Urine 7.5 (5.0-8.0); Protein,Urine 1+ (Negative); RBC,Urine <1 /hpf (0-5); Specific Gravity,Urine 1.021 (1.001-1.035); Squamous Epithelial Cell,Urine 1 /hpf (0-4); Urobilinogen,Urine <2.0 mg/dL (<2.0); WBC,Urine 1 /hpf (0-5)
[2022-10-06 16:21] LABS: ALT 21 U/L (4-34); AST 21 U/L (14-36); African American GFR (CKD) >90 (>60 ml/min/1.73 sqM); Albumin 4.7 g/dL (3.5-5.0); Alkaline Phosphatase 55 U/L (38-126); Amylase 233 U/L (30-110); Anion Gap 13 mmol/L; Blood Urea Nitrogen 12 mg/dL (7-17); Calcium 9.9 mg/dL (8.4-10.2); Carbon Dioxide 30 mmol/L (22-30); Chloride 92 mmol/L (98-107); Glucose 134 mg/dL (74-99); Lipase 452 U/L (23-300); Non-African American GFR(CKD) >90 (>60 ml/min/1.73 sqM); Potassium 3.5 mmol/L (3.5-5.1); Sodium 135 mmol/L (137-145); Total Bilirubin 0.8 mg/dL (0.2-1.3); Total Protein 7.7 g/dL (6.3-8.2)
--- NOTE | 2022-10-06 16:44 | XR ---
EXAMINATION TYPE: XR KUB DATE OF EXAM: 10/06/2022 4:12 PM INDICATION: Patient age:Female; 42 years old; Reason for study: abd pain; PHH. COMPARISON: KUB 12/07/2020 TECHNIQUE: One radiographic view of the abdomen was obtained. FINDINGS: The bowel gas pattern is nonspecific without dilated loops of small or large bowel. There i s no evidence for organomegaly or pneumoperitoneum. The osseous structures are intact. No abnormal calcifications are present. Fecal material and gas are demonstrated throughout the colon and rectum. IMPRESSION: Nonspecific bowel gas pattern without radiographic evidence for acute process.
--- NOTE | 2022-10-06 17:22 | US ---
EXAMINATION TYPE: US gallbladder DATE OF EXAM: 10/06/2022 COMPARISON: CT abdomen pelvis 12/10/2020 CLINICAL INDICATION: Female, 42 years old with history of pain; abd pain, N/V x 1 day TECHNIQUE: Multiple sonographic images of the right upper quadrant are obtained. FINDINGS: EXAM MEASUREMENTS: Liver Length: 17.8 cm Gallbladder Wall: 0.2 cm CBD: 0.8 cm Right Kidney: 11.2 x 4.9 x 4.5 cm Pancreas: Tail obscured by overlying bowel gas Liver: Sonographically difficult to penetrate suggesting fatty infiltration. Gallbladder: Within normal limits. No cholelithiasis, wall thickening or pericholecystic fluid. Evidence for sonographic Cooley's sign: no CBD: Upper limits of normal for size. No filling defect appreciated in the visualized segments. Right Kidney: Within normal limits. No evidence for hydronephrosis. IMPRESSION: 1. No sonographic evidence for acute process within the right upper quadrant. 2. Hepatic steatosis.
[2022-10-06] MEDS ORDERED: traMADol 50 MG STARTER PACK 3 TAB BTL PO STA (17:56)
[2022-10-06] MEDS ORDERED: ONDANSETRON 4 MG ODT STARTER PACK 2 TAB BTL PO STA (17:56)
[2022-10-06] MEDS ORDERED: PROCHLORPERAZINE INJ 10 MG/2 ML VIAL IVP STA (18:05)
[2022-10-06 19:07] VITALS: PULSE 73; RESP 16
== END 2022-10-06 19:07 | disposition home or self-care (01) ==
LOC: EC 14:46
DX: R11.2 Nausea with vomiting, unspecified (principal); R10.30 Lower abdominal pain, unspecified; E86.0 Dehydration; R74.01 Elevation of levels of liver transaminase levels; E11.9 Type 2 diabetes mellitus without complications; I10 Essential (primary) hypertension; F41.9 Anxiety disorder, unspecified; F12.90 Cannabis use, unspecified, uncomplicated; Z87.891 Personal history of nicotine dependence; Z79.899 Other long term (current) drug therapy
CPT/HCPCS: 36415; 80053; 82150; 82009; 83690; 85025; 81001; 74018; 76705; 99284; 96374; 96375 ×3; 96361 ×4; J2270; J0780; J2405; J1885; S0119

== ENCOUNTER 2024-07-25 17:44 | Emergency (ER) | payer BC ==
[2024-07-25] MEDS: METOCLOPRAMIDE 5 MG/ML 2 ML VIAL IVP STA (18:39)
[2024-07-25] MEDS: SODIUM CHLORIDE 0.9% 1,000 ML IV ONE ×2 (18:39→19:33)
[2024-07-25 18:58] LABS: Basophils % (A) 0 %; Eosinophils # (A) 0.1 k/uL (0-0.7); Eosinophils % (A) 0 %; HCT 43.5 % (34.0-46.0); HGB 14.5 gm/dL (11.4-16.0); Lymphocytes # (A) 1.2 k/uL (1.0-4.8); Lymphocytes % (A) 9 %; MCH 28.2 pg (25.0-35.0); MCHC 33.4 g/dL (31.0-37.0); MCV 84.4 fL (80.0-100.0); Mean Platelet Volume 6.9; Monocytes # (A) 0.3 k/uL (0-1.0); Monocytes % (A) 2 %; Neutrophils # (A) 12.3 k/uL (1.3-7.7); Neutrophils % (A) 88 %; Platelet Count 459 k/uL (150-450); RBC 5.16 m/uL (3.80-5.40); RDW 12.5 % (11.5-15.5)
[2024-07-25 19:09] VITALS: RESP 18
[2024-07-25 19:11] LABS: ALT 28 U/L (4-34); AST 21 U/L (14-36); African American GFR (CKD) >90 (>60 ml/min/1.73 sqM); Albumin 4.8 g/dL (3.5-5.0); Alkaline Phosphatase 60 U/L (38-126); Amylase 60 U/L (30-110); Anion Gap 17 mmol/L; Blood Urea Nitrogen 15 mg/dL (7-17); Calcium 9.8 mg/dL (8.4-10.2); Carbon Dioxide 18 mmol/L (22-30); Chloride 101 mmol/L (98-107); Glucose 185 mg/dL (74-99); Lipase 50 U/L (23-300); Non-African American GFR(CKD) >90 (>60 ml/min/1.73 sqM); Potassium 4.1 mmol/L (3.5-5.1); Sodium 136 mmol/L (137-145); Total Protein 7.9 g/dL (6.3-8.2)
[2024-07-25] MEDS: ENALAPRILAT 1.25 MG/ML 1 ML VIAL IVP STA (19:33)
[2024-07-25 19:54] LABS: Appearance,Urine Clear (Clear); Bilirubin,Urine Negative (Negative); Blood,Urine Negative (Negative); Color,Urine Colorless; Glucose,Urine (UA) Trace (Negative); Ketones,Urine 3+ (Negative); Leukocyte Esterase,Urine Negative (Negative); Nitrite,Urine Negative (Negative); PH, Urine 7.5 (5.0-8.0); Protein,Urine Trace (Negative); Specific Gravity,Urine 1.019 (1.001-1.035); Urobilinogen,Urine <2.0 mg/dL (<2.0)
[2024-07-25] MEDS: MORPHINE SULFATE 4 MG/ML SYRINGE IV STA (19:56)
--- NOTE | 2024-07-25 20:24 | CT ---
EXAMINATION TYPE: CT abdomen pelvis wo con DATE OF EXAM: 07/25/2024 8:14 PM COMPARISON: Prior CT abdomen/pelvis study 12/10/2020. CLINICAL INDICATION: Female, 43 years old with history of Upper abdominal pain; Upper abdominal pain TECHNIQUE: Axial CT abdomen pelvis wo con;Sagittal and coronal reformats were created on a separate workstation. Oral contrast used: without Oral Contrast (none if empty) CT DLP: 796.4 mGycm, Automated exposure control for dose reduction was used. FINDINGS: LOWER CHEST: Unremarkable. ABDOMEN LIVER: Diffusely hypoattenuating parenchyma. GALLBLADDER AND BILE DUCTS: Unremarkable. PANCREAS: Unremarkable. SPLEEN: Unremarkable. ADRENAL GLANDS: Unremarkable. KIDNEYS AND URETERS: No evidence of hydronephrosis or renal calculus. The ureters are unremarkable. PELVIS BLADDER: No evidence for wall thickening or mass given limitations of exam. REPRODUCTIVE: Unremarkable. ABDOMEN & PELVIS STOMACH AND BOWEL: Stomach and duodenum are unremarkable. Scattered diverticula are noted throughout the colon. No evidence of bowel obstruction. PERITONEUM/RETROPERITONEUM: No evidence of pneumoperitoneum or free fluid. VASCULATURE: No evidence of aortic aneurysm. MUSCULOSKELETAL: No acute osseous abnormalities LYMPH NODES: No gross evidence for lymphadenopathy. SOFT TISSUE/ABDOMINAL WALL: Unremarkable IMPRESSION: No acute abnormality abdomen/pelvis or CT findings to explain reported symptoms. [facility], , 07/25/2024 8:21 PM
--- NOTE | 2024-07-25 20:54 | ED ---
Abdominal Pain HPI - General Source: patient Mode of arrival: ambulatory Limitations: no limitations - History of Present Illness MD Complaint: abdominal pain Onset/Timin -: days(s) Location: RUQ, epigastric Radiation: none Migration to: no migration Severity: severe Quality: cramping, sharp Consistency: colicky Improves With: nothing Worsens With: nothing Associated Symptoms: nausea, diarrhea <Noel Alford - Last Filed: 07/25/24 22:49> - General Source: patient, RN notes reviewed, old records reviewed Mode of arrival: ambulatory Limitations: no limitations - History of Present Illness MD Complaint: abdominal pain -: days(s) (2) Location: epigastric Radiation: epigastric Quality: aching, sharp Consistency: intermittent Improves With: nothing Worsens With: nothing Associated Symptoms: nausea Treatments Prior to Arrival: other (0) <Esequiel Triana - Last Filed: 07/27/24 23:02> - General Chief Complaint: Abdominal Pain Stated Complaint: abd pain Time Seen by Provider: 07/25/24 18:03 - History of Present Illness Initial Comments: This patient is a 43-year-old woman who presents to have evaluation for 2 days of upper abdominal pain. She describes it as having a character that is sometimes cramping sometimes sharp. She also has had accompanying nausea and then today had episode of watery diarrhea. She has not noted fever though she has felt chills. No change in urination. No bloody or tarry stools. (Noel Alford) This is a 43 female to ER for upper abdominal pain occasional lower abdominal pain sharp pain with nausea symptoms that she has had in the past. Patient has no fevers no vomiting (Esequiel Triana) - Related Data Home Medications Medication Instructions Recorded Confirmed No Known Home Medications 07/27/24 07/27/24 Allergies Allergy/AdvReac Type Severity Reaction Status Date / Time No Known Allergies Allergy Verified 07/27/24 13:42 Review of Systems ROS Other: All systems not noted in ROS Statement are negative. Constitutional: Denies: fever, chills, weakness Respiratory: Denies: cough, dyspnea Cardiovascular: Denies: chest pain, palpitations, edema Gastrointestinal: Reports: abdominal pain, nausea, diarrhea. Denies: vomiting, constipation, melena, hematochezia Genitourinary: Denies: dysuria, hematuria Musculoskeletal: Denies: back pain Skin: Denies: rash Neurological: Denies: headache, weakness, numbness <Noel Alford - Last Filed: 07/25/24 22:49> ROS Other: All systems not noted in ROS Statement are negative. <Esequiel Triana - Last Filed: 07/27/24 23:02> ROS Statement: Those systems with pertinent positive or pertinent negative responses have been documented in the HPI. Past Medical History Past Medical History: Diabetes Mellitus, Hypertension Additional Past Medical History / Comment(s): NIDDM type II/diagnosed about 1 year ago, occasional cervical pain/herniated discs, past UTI History of Any Multi-Drug Resistant Organisms: None Reported Additional Past Surgical History / Comment(s): liposuction and abdominoplasty Past Anesthesia/Blood Transfusion Reactions: Previous Problems w/ Anesthesia Additional Past Anesthesia/Blood Transfusion Reaction / Comment(s): Pt takes a long time waking. She has clausterphobia Past Psychological History: Anxiety Smoking Status: Former smoker Past Alcohol Use History: None Reported Past Drug Use History: Marijuana - Past Family History Mother History Unknown: Yes Additional Family Medical History / Comment(s): Mother of unknown causes at the age of 63yrs Father Family Medical History: CVA/TIA, Diabetes Mellitus, Hyperlipidemia, Hypertension Additional Family Medical History / Comment(s): Father is living. <Noel Alford - Last Filed: 07/25/24 22:49> General Exam Limitations: no limitations General appearance: alert, in no apparent distress Head exam: Present: atraumatic, normocephalic Eye exam: Present: normal appearance. Absent: scleral icterus, conjunctival injection ENT exam: Present: normal oropharynx Neck exam: Present: normal inspection Respiratory exam: Present: normal lung sounds bilaterally. Absent: respiratory distress, wheezes, rales, rhonchi, stridor, accessory muscle use Cardiovascular Exam: Present: regular rate, normal rhythm, normal heart sounds. Absent: systolic murmur, diastolic murmur, rubs, gallop GI/Abdominal exam: Present: soft, tenderness. Absent: distended, guarding, rebound, rigid, organomegaly, mass, pulsatile mass, hernia Extremities exam: Present: normal inspection, normal capillary refill. Absent: pedal edema, calf tenderness Back exam: Present: normal inspection. Absent: CVA tenderness (R), CVA tenderness (L) Neurological exam: Present: alert Skin exam: Present: warm, dry, intact, normal color. Absent: rash <PalakbillyNoel - Last Filed: 07/25/24 22:49> General appearance: alert, in no apparent distress Head exam: Present: atraumatic, normocephalic, normal inspection Eye exam: Present: normal appearance, PERRL, EOMI. Absent: scleral icterus, conjunctival injection, periorbital swelling ENT exam: Present: normal exam, mucous membranes moist Neck exam: Present: normal inspection. Absent: tenderness, meningismus, lymphadenopathy Respiratory exam: Present: normal lung sounds bilaterally. Absent: respiratory distress, wheezes, rales, rhonchi, stridor Cardiovascular Exam: Present: regular rate, normal rhythm, normal heart sounds. Absent: systolic murmur, diastolic murmur, rubs, gallop, clicks GI/Abdominal exam: Present: soft, normal bowel sounds. Absent: distended, tenderness, guarding, rebound, rigid Extremities exam: Present: normal inspection, full ROM, normal capillary refill. Absent: tenderness, pedal edema, joint swelling, calf tenderness Back exam: Present: normal inspection Neurological exam: Present: alert, oriented X3, CN II-XII intact Psychiatric exam: Present: normal affect, normal mood Skin exam: Present: warm, dry, intact, normal color. Absent: rash <Esequiel Triana - Last Filed: 07/27/24 23:02> Course <Esequiel Triana - Last Filed: 07/27/24 23:02> Vital Signs 07/25/24 07/25/24 07/25/24 17:54 19:08 19:31 Temperature 97.9 F Pulse Rate 83 80 81 Respiratory 24 18 18 Rate Blood Pressure 219/113 193/110 203/109 O2 Sat by Pulse 98 100 99 Oximetry 07/25/24 07/25/24 07/25/24 19:54 20:51 21:45 Temperature Pulse Rate 79 81 81 Respiratory 18 18 18 Rate Blood Pressure 203/117 197/99 204/96 O2 Sat by Pulse 100 100 96 Oximetry 07/25/24 07/26/24 07/26/24 23:31 01:33 03:22 Temperature 98.1 F Pulse Rate 77 77 87 Respiratory 18 18 18 Rate Blood Pressure 180/83 117/61 124/78 O2 Sat by Pulse 97 97 Oximetry - Reevaluation(s) Reevaluation #1: 07/26/24 06:46 Medical records reviewed (Esequiel Triana) Reevaluation #2: 07/26/24 06:46 Patient symptoms improved feels comfortable for discharge (Esequiel Triana) Reevaluation #3: 07/26/24 06:46 Patient informed of results questions answered (Esequiel Triana) Reevaluation #4: Was pt. sent in by a medical professional or institution (, [facility]ILY, REGISTERED OCCUPATIONAL THERAPIST, urgent care, hospital, or retirement...) When possible be specific @ -no Did you speak to anyone other than the patient for history (EMS, parent, family, police, friend...)? What history was obtained from this source @ -no Did you review nursing and triage notes (agree or disagree)? Why? @ -agree Are old charts reviewed (outside hosp., previous admission, EMS record, old EKG, old radiological studies, urgent care reports/EKG's, retirement records)? Report findings @ -yes Differential Diagnosis (chest pain, altered mental status, abdominal pain women, abdominal pain men, vaginal bleeding, weakness, fever, dyspnea, syncope, headache, dizziness, GI bleed, back pain, seizure, CVA, palpatations, mental health, musculoskeletal)? @ -prior EKG interpreted by me (3pts min.). @ -no X-rays interpreted by me (1pt min.). @ -no CT interpreted by me (1pt min.). @ -yes Negative for acute disease U/S interpreted by me (1pt. min.). @ -Yes negative for acute disease What testing was considered but not performed or refused? (CT, X-rays, U/S, labs)? Why? @ -none What meds were considered but not given or refused? Why? @ -none Did you discuss the management of the patient with other professionals (professionals i.e. LILY Fernandes, REGISTERED OCCUPATIONAL THERAPIST, lab, RT, psych nurse, social worker school, boom pump operator, teacher, credit review officer, outsole caser)? Give summary @ -no Was smoking cessation discussed for >3mins.? @ -no Was critical care preformed (if so, how long)? @ -no Were there social determinants of health that impacted care today? How? (Homelessness, low income, unemployed, alcoholism, drug addiction, tra nsportation, low edu. Level, literacy, decrease access to med. care, group home, rehab)? @ -none Was there de-escalation of care discussed even if they declined (Discuss DNR or withdrawal of care, Hospice)? DNR status @ -no What co-morbidities impacted this encounter? (DM, HTN, Smoking, COPD, CAD, Cance r, CVA, ARF, Chemo, Hep., AIDS, mental health diagnosis, sleep apnea, morbid obesity)? @ -none Was patient admitted / discharged? Hospital course, mention meds given and route, prescriptions, significant lab abnormalities, going to OR and other pertinent info. @ -43 female to the ER for evaluation of abdominal pain, patient has normal CT scan and ultrasound here in the ER with normal lab testing feels improved throughout ER stay nausea vomiting diarrhea symptoms are abrupted patient feels well and can be discharged home Discharged Undiagnosed new problem with uncertain prognosis? @ -no Drug Therapy requiring intensive monitoring for toxicity (Heparin, Nitro, Insulin, Cardizem)? @ -no Were any procedures done? @ -no Diagnosis/symptom? @ -Gastroenteritis Acute, or Chronic, or Acute on Chronic? @ -Acute Uncomplicated (without systemic symptoms) or Complicated (systemic symptoms)? @ -Complicated Side effects of treatment? @ -no Exacerbation, Progression, or Severe Exacerbation? @ -exacerbation Poses a threat to life or bodily function? How? (Chest pain, [place], [place], pneumonia, PE, COPD, DKA, ARF, appy, cholecystitis, CVA, Diverticulitis, Homicidal, Suicidal, threat to staff... and all critical care pts) @ -no (Esequeil Triana) Reevaluation #5: Differential Abdominal Pain Women: Appendicitis, Cholecystitis, diverticulosis, ischemic bowel, pancreatitis, hepatitis, UTI, gastroenteritis, AAA, incarcerated hernia, bowel obstruction, c onstipation, inflammatory bowel, hepatitis, peptic ulcer disease, splenic infarction, perforated viscus, vulvitis, ovarian torsion, PID, kidney stone, placenta abruption, this is not meant to be an all-inclusive list (Esequiel Triana) Medical Decision Making - Lab Data Result diagrams: 07/25/24 18:52 07/25/24 18:52 <Noel Alford - Last Filed: 07/25/24 22:49> - Lab Data Result diagrams: 07/25/24 18:52 07/25/24 18:52 - Radiology Data Radiology results: report reviewed (CT abdomen pelvis negative for acute disease ultrasound gallbladder negative for acute disease), image reviewed <Esequiel Triana - Last Filed: 07/27/24 23:02> - Medical Decision Making The patient had CT scan of the abdomen and pelvis that I interpreted as negative for free air, obstruction, or other acute surgical condition. (Noel Alford) 43 female to ER with nonspecific abdominal pain nausea vomiting diarrhea symptoms gradually improved throughout ER stay patient feels well imaging negative lab testing normal patient can be discharged home (Esequiel Triana) - Lab Data Lab Results 07/25/24 07/25/24 07/25/24 Range/Units 18:52 18:52 18:52 WBC 14.0 H (3.8-10.6) k/uL RBC 5.16 (3.80-5.40) m/uL Hgb 14.5 (11.4-16.0) gm/dL Hct 43.5 (34.0-46.0) % MCV 84.4 (80.0-100.0) fL MCH 28.2 (25.0-35.0) pg MCHC 33.4 (31.0-37.0) g/dL RDW 12.5 (11.5-15.5) % Plt Count 459 H (150-450) k/uL MPV 6.9 Neutrophils % 88 % Lymphocytes % 9 % Monocytes % 2 % Eosinophils % 0 % Basophils % 0 % Neutrophils # 12.3 H (1.3-7.7) k/uL Lymphocytes # 1.2 (1.0-4.8) k/uL Monocytes # 0.3 (0-1.0) k/uL Eosinophils # 0.1 (0-0.7) k/uL Basophils # 0.0 (0-0.2) k/uL Sodium 136 L (137-145) mmol/L Potassium 4.1 (3.5-5.1) mmol/L Chloride 101 (98-107) mmol/L Carbon Dioxide 18 L (22-30) mmol/L Anion Gap 17 mmol/L BUN 15 (7-17) mg/dL Creatinine 0.54 (0.52-1.04) mg/dL Est GFR (CKD-EPI)AfAm >90 (>60 ml/min/1.73 sqM) Est GFR (CKD-EPI)NonAf >90 (>60 ml/min/1.73 sqM) Glucose 185 H (74-99) mg/dL Lactic Ac Sepsis Rflx Plasma Lactic Acid Vamsi 2.7 H* (0.7-2.0) mmol/L Calcium 9.8 (8.4-10.2) mg/dL Total Bilirubin 1.0 (0.2-1.3) mg/dL AST 21 (14-36) U/L ALT 28 (4-34) U/L Alkaline Phosphatase 60 (38-126) U/L Total Protein 7.9 (6.3-8.2) g/dL Albumin 4.8 (3.5-5.0) g/dL Amylase 60 (30-110) U/L Lipase 50 (23-300) U/L Urine Color Urine Appearance (Clear) Urine pH (5.0-8.0) Ur Specific [place] (1.001-1.035) Urine Protein (Negative) Urine Glucose (UA) (Negative) Urine Ketones (Negative) Urine Blood (Negative) Urine Nitrite (Negative) Urine Bilirubin (Negative) Urine Urobilinogen (<2.0) mg/dL Ur Leukocyte Esterase (Negative) Urine HCG, Qual (Not Detectd) 07/25/24 07/25/24 07/25/24 Range/Units 19:09 19:29 19:29 WBC (3.8-10.6) k/uL RBC (3.80-5.40) m/uL Hgb (11.4-16.0) gm/dL Hct (34.0-46.0) % MCV (80.0-100.0) fL MCH (25.0-35.0) pg MCHC (31.0-37.0) g/dL RDW (11.5-15.5) % Plt Count (150-450) k/uL MPV Neutrophils % % Lymphocytes % % Monocytes % % Eosinophils % % Basophils % % Neutrophils # (1.3-7.7) k/uL Lymphocytes # (1.0-4.8) k/uL Monocytes # (0-1.0) k/uL Eosinophils # (0-0.7) k/uL Basophils # (0-0.2) k/uL Sodium (137-145) mmol/L Potassium (3.5-5.1) mmol/L Chloride (98-107) mmol/L Carbon Dioxide (22-30) mmol/L Anion Gap mmol/L BUN (7-17) mg/dL Creatinine (0.52-1.04) mg/dL Est GFR (CKD-EPI)AfAm (>60 ml/min/1.73 sqM) Est GFR (CKD-EPI)NonAf (>60 ml/min/1.73 sqM) Glucose (74-99) mg/dL Lactic Ac Sepsis Rflx Y Plasma Lactic Acid Vamsi (0.7-2.0) mmol/L Calcium (8.4-10.2) mg/dL Total Bilirubin (0.2-1.3) mg/dL AST (14-36) U/L ALT (4-34) U/L Alkaline Phosphatase (38-126) U/L Total Protein (6.3-8.2) g/dL Albumin (3.5-5.0) g/dL Amylase (30-110) U/L Lipase (23-300) U/L Urine Color Colorless Urine Appearance Clear (Clear) Urine pH 7.5 (5.0-8.0) Ur Specific [place] 1.019 (1.001-1.035) Urine Protein Trace H (Negative) Urine Glucose (UA) Trace H (Negative) Urine Ketones 3+ H (Negative) Urine Blood Negative (Negative) Urine Nitrite Negative (Negative) Urine Bilirubin Negative (Negative) Urine Urobilinogen <2.0 (<2.0) mg/dL Ur Leukocyte Esterase Negative (Negative) Urine HCG, Qual Not Detected (Not Detectd) 07/25/24 Range/Units 21:28 WBC (3.8-10.6) k/uL RBC (3.80-5.40) m/uL Hgb (11.4-16.0) gm/dL Hct (34.0-46.0) % MCV (80.0-100.0) fL MCH (25.0-35.0) pg MCHC (31.0-37.0) g/dL RDW (11.5-15.5) % Plt Count (150-450) k/uL MPV Neutrophils % % Lymphocytes % % Monocytes % % Eosinophils % % Basophils % % Neutrophils # (1.3-7.7) k/uL Lymphocytes # (1.0-4.8) k/uL Monocytes # (0-1.0) k/uL Eosinophils # (0-0.7) k/uL Basophils # (0-0.2) k/uL Sodium (137-145) mmol/L Potassium (3.5-5.1) mmol/L Chloride (98-107) mmol/L Carbon Dioxide (22-30) mmol/L Anion Gap mmol/L BUN (7-17) mg/dL Creatinine (0.52-1.04) mg/dL Est GFR (CKD-EPI)AfAm (>60 ml/min/1.73 sqM) Est GFR (CKD-EPI)NonAf (>60 ml/min/1.73 sqM) Glucose (74-99) mg/dL Lactic Ac Sepsis Rflx Plasma Lactic Acid Vamsi 1.2 (0.7-2.0) mmol/L Calcium (8.4-10.2) mg/dL Total Bilirubin (0.2-1.3) mg/dL AST (14-36) U/L ALT (4-34) U/L Alkaline Phosphatase (38-126) U/L Total Protein (6.3-8.2) g/dL Albumin (3.5-5.0) g/dL Amylase (30-110) U/L Lipase (23-300) U/L Urine Color Urine Appearance (Clear) Urine pH (5.0-8.0) Ur Specific [place] (1.001-1.035) Urine Protein (Negative) Urine Glucose (UA) (Negative) Urine Ketones (Negative) Urine Blood (Negative) Urine Nitrite (Negative) Urine Bilirubin (Negative) Urine Urobilinogen (<2.0) mg/dL Ur Leukocyte Esterase (Negative) Urine HCG, Qual (Not Detectd) Disposition Is patient prescribed a controlled substance at d/c from ED?: No <Noel Alford - Last Filed: 07/25/24 22:49> Is patient prescribed a controlled substance at d/c from ED?: No <KayleehollandEsequiel Josiane - Last Filed: 07/27/24 23:02> Clinical Impression: Abdominal pain, Hypertension Disposition: HOME SELF-CARE Condition: Good Instructions (If sedation given, give patient instructions): Abdominal Pain (ED), Hypertension (ED) Additional Instructions: As we discussed, follow-up with the surgeon to see about having a HIDA scan. Referrals: Sandy Roper MD [Primary Care Provider] - 1-2 days Braulio Gomes DO [Medical Doctor] - 1-2 days
[2024-07-25] MEDS: HYDROmorphone 0.5 MG/0.5 ML SYRINGE IVP STA (21:46)
[2024-07-25] MEDS: cloNIDine HCL 0.2 MG TAB PO STA (21:46)
--- NOTE | 2024-07-26 00:29 | US ---
EXAM: US Abdomen Complete CLINICAL HISTORY: ITS.REASON US Reason: Attention RUQ TECHNIQUE: Real-time ultrasound of the abdomen with image documentation. COMPARISON: 07/25/2024. FINDINGS: Liver: Liver measures 17.2 cm. Fatty liver. No intrahepatic bile duct dilation. Gallbladder: Unremarkable. No gallstones. Common bile duct: Common bile duct measures 0.3 cm. No stones. No dilation. Pancreas: The visualized portions of the pancreas are unremarkable. Kidneys: Unremarkable. No stones. Right kidney measures 11 x 4.3 x 4. 7 cm. No hydronephrosis. Spleen: Unremarkable. No splenomegaly. Aorta: Unremarkable. No abdominal aortic aneurysm. Inferior vena cava: Unremarkable. IMPRESSION: 1. Hepatomegaly. 2. Fatty liver. 3. Visualized viscera are unremarkable.
[2024-07-26 03:26] VITALS: BP 124/78; PULSE 87; TEMP 98.1
== END 2024-07-26 03:22 | disposition home or self-care (01) ==
LOC: EC 17:44
DX: R10.13 Epigastric pain (principal); I10 Essential (primary) hypertension; Z87.891 Personal history of nicotine dependence
CPT/HCPCS: 36415; 80053; 82150; 83605; 83690; 85025; 81003; 81025; 76705; 74176; 99284; 96374; 96375 ×3; 96361 ×2; J2270; J2765; J1171

== ENCOUNTER 2024-07-27 10:03 | Inpatient (IN) | payer BC ==
--- NOTE | 2024-07-27 10:57 | ED ---
General Adult HPI - General Chief complaint: Shortness of Breath Stated complaint: SOB Time Seen by Provider: 07/27/24 10:21 Source: patient, RN notes reviewed Mode of arrival: ambulatory Limitations: no limitations - History of Present Illness Initial comments: 43-year-old female presents to the emergency department for evaluation of "panic attacks." Patient states that she has been having episodes where she feels like she cannot catch her breath and that her chest is tight. The episodes last 30 minutes to 1 hour. She is having multiple episodes a day. She also reports that these episodes have woken her up in her sleep. When they occur she also has vomiting. She states that this been going on for around 5 days. She was recently here for abdominal pain and had a workup performed for that. She denies any fever, endorses chills. Admits to vomiting. Denies any changes in her bowel movements. She is not currently on any medications. Reports a history of anxiety and depression and was on medication for this in the past but is not currently on anything. - Related Data Home Medications Medication Instructions Recorded Confirmed No Known Home Medications 07/27/24 07/27/24 Allergies Allergy/AdvReac Type Severity Reaction Status Date / Time No Known Allergies Allergy Verified 07/27/24 13:42 Review of Systems ROS Statement: Those systems with pertinent positive or pertinent negative responses have been documented in the HPI. ROS Other: All systems not noted in ROS Statement are negative. Past Medical History Past Medical History: Diabetes Mellitus, Hypertension Additional Past Medical History / Comment(s): NIDDM type II/diagnosed about 1 year ago, occasional cervical pain/herniated discs, past UTI History of Any Multi-Drug Resistant Organisms: None Reported Additional Past Surgical History / Comment(s): liposuction and abdominoplasty Past Anesthesia/Blood Transfusion Reactions: Previous Problems w/ Anesthesia Additional Past Anesthesia/Blood Transfusion Reaction / Comment(s): Pt takes a long time waking. She has clausterphobia Past Psychological History: Anxiety Smoking Status: Former smoker Past Alcohol Use History: None Reported Past Drug Use History: Marijuana - Past Family History Mother History Unknown: Yes Additional Family Medical History / Comment(s): Mother of unknown causes at the age of 63yrs Father Family Medical History: CVA/TIA, Diabetes Mellitus, Hyperlipidemia, Hypertension Additional Family Medical History / Comment(s): Father is living. General Exam Limitations: no limitations General appearance: alert, in no apparent distress Head exam: Present: atraumatic, normocephalic, normal inspection Eye exam: Present: normal appearance, PERRL, EOMI. Absent: scleral icterus, conjunctival injection, periorbital swelling ENT exam: Present: normal exam, mucous membranes moist Respiratory exam: Present: normal lung sounds bilaterally. Absent: respiratory distress, wheezes, rales, rhonchi, stridor Cardiovascular Exam: Present: regular rate, normal rhythm, normal heart sounds. Absent: systolic murmur, diastolic murmur, rubs, gallop, clicks GI/Abdominal exam: Present: soft. Absent: distended, tenderness, guarding, rebound, rigid Extremities exam: Present: normal inspection, full ROM, normal capillary refill. Absent: tenderness, pedal edema, joint swelling, calf tenderness Neurological exam: Present: alert, oriented X3 Psychiatric exam: Present: normal affect, normal mood Skin exam: Present: warm, dry, intact, normal color. Absent: rash Course Vital Signs 07/27/24 07/27/24 07/27/24 10:14 15:02 16:22 Temperature 98.0 F 98.1 F 98.2 F Pulse Rate 86 92 79 Respiratory 18 16 18 Rate Blood Pressure 131/72 174/99 190/100 O2 Sat by Pulse 99 98 99 Oximetry Medical Decision Making - Medical Decision Making Was pt. sent in by a medical professional or institution ([facility], [facility], urgent care, hospital, or long-term...) When possible be specific @ -No Did you speak to anyone other than the patient for history (EMS, parent, family, police, friend...)? What history was obtained from this source @ -No Did you review nursing and triage notes (agree or disagree)? Why? @ -I reviewed and agree with nursing and triage notes Were old charts reviewed (outside hosp., previous admission, EMS record, old EKG, old radiological studies, urgent care reports/EKG's, long-term records)? Report findings @ -I reviewed charts from recent visit for abdominal pain including abdominal CT and ultrasound Differential Diagnosis (chest pain, altered mental status, abdominal pain women, abdominal pain men, vaginal bleeding, weakness, fever, dyspnea, syncope, headache, dizziness, GI bleed, back pain, seizure, CVA, palpatations, mental health, musculoskeletal)? @ -Differential Dyspnea: Coronary syndrome, arrhythmia, tamponade, asthma, COPD, pulmonary embolism, pneumonia, pneumothorax, pulmonary effusion, anaphylaxis, diabetic ketoacidosis, flailed chest, pulmonary contusion, diaphragmatic rupture, anemia, neuromuscular, this is not meant to be an all-inclusive list. EKG interpreted by me (3pts min.). @ -EKG at 1035 shows sinus rhythm rate 70, HI 150, QRS 86, QTQTc 537124 X-rays interpreted by me (1pt min.). @ -Chest x-ray shows no evidence of acute process CT interpreted by me (1pt min.). @ -None done U/S interpreted by me (1pt. min.). @ -None done What testing was considered but not performed or refused? (CT, X-rays, U/S, labs)? Why? @ -None What meds were considered but not given or refused? Why? @ -None Did you discuss the management of the patient with other professionals (thi lyons i.e. , PA, [facility], lab, RT, psych nurse, social service director, dust collector treater, teacher, compliance review officer, comp field case manager)? Give summary @ -Case discussed with Dr. Shipley who is accepting of the admission Was smoking cessation discussed for >3mins.? @ -No Was critical care preformed (if so, how long)? @ -No Were there social determinants of health that impacted care today? How? (Homelessness, low income, unemployed, alcoholism, drug addiction, transportation, low edu. Level, literacy, decrease access to med. care, [facility], rehab)? @ -No Was there de-escalation of care discussed even if they declined (Discuss DNR or withdrawal of care, Hospice)? DNR status @ -No What co-morbidities impacted this encounter? (DM, HTN, Smoking, COPD, CAD, Cancer, CVA, ARF, Chemo, Hep., AIDS, mental health diagnosis, sleep apnea, morbid obesity)? @ -None Was patient admitted / discharged? Hospital course, mention meds given and route, prescriptions, significant lab abnormalities, going to OR and other pertinent info. @ -Admitted for observation. Patient presented the emergency department for evaluation of chest tightness and difficulty catching her breath.Laboratory studies obtained revealing minimal leukocytosis at 11.1, hemoglobin 13.9; CMP nonactionable, negative troponin. Patient was provided medication for anxiety and nausea in the ED. Patient will be admitted for observation with cardiology consultation. She is understanding agreeable with this plan. Patient stable at time of admission. Case discussed with Dr. Fontana Undiagnosed new problem with uncertain prognosis? @ -No Drug Therapy requiring intensive monitoring for toxicity (Heparin, Nitro, Insulin, Cardizem)? @ -No Were any procedures done? @ -No Diagnosis/symptom? @ -Chest pain Acute, or Chronic, or Acute on Chronic? @ -Acute Uncomplicated (without systemic symptoms) or Complicated (systemic symptoms)? @ -Uncomplicated Side effects of treatment? @ -No Exacerbation, Progression, or Severe Exacerbation? @ -No Poses a threat to life or bodily function? How? (Chest pain, [place], [place], pneumonia, PE, COPD, DKA, ARF, appy, cholecystitis, CVA, Diverticulitis, Homicidal, Suicidal, threat to staff... and all critical care pts) @ -Chest pain - Lab Data Result diagrams: 07/27/24 11:03 07/27/24 11:03 Lab Results 07/27/24 07/27/24 07/27/24 Range/Units 11:03 11:03 11:03 WBC 11.1 H (3.8-10.6) k/uL RBC 4.98 (3.80-5.40) m/uL Hgb 13.9 (11.4-16.0) gm/dL Hct 42.6 (34.0-46.0) % MCV 85.5 (80.0-100.0) fL MCH 27.8 (25.0-35.0) pg MCHC 32.6 (31.0-37.0) g/dL RDW 12.6 (11.5-15.5) % Plt Count 433 (150-450) k/uL MPV 6.8 Neutrophils % 75 % Lymphocytes % 18 % Monocytes % 4 % Eosinophils % 2 % Basophils % 1 % Neutrophils # 8.4 H (1.3-7.7) k/uL Lymphocytes # 2.0 (1.0-4.8) k/uL Monocytes # 0.4 (0-1.0) k/uL Eosinophils # 0.2 (0-0.7) k/uL Basophils # 0.1 (0-0.2) k/uL PT 11.2 (10.0-12.5) sec INR 1.0 (<1.2) APTT 21.0 L (22.0-30.0) sec Sodium 137 (137-145) mmol/L Potassium 4.1 (3.5-5.1) mmol/L Chloride 106 (98-107) mmol/L Carbon Dioxide 22 (22-30) mmol/L Anion Gap 9 mmol/L BUN 15 (7-17) mg/dL Creatinine 0.59 (0.52-1.04) mg/dL Est GFR (CKD-EPI)AfAm >90 (>60 ml/min/1.73 sqM) Est GFR (CKD-EPI)NonAf >90 (>60 ml/min/1.73 sqM) Glucose 144 H (74-99) mg/dL Calcium 9.2 (8.4-10.2) mg/dL Magnesium 1.7 (1.6-2.3) mg/dL Total Bilirubin 0.7 (0.2-1.3) mg/dL AST 21 (14-36) U/L ALT 24 (4-34) U/L Alkaline Phosphatase 46 (38-126) U/L Troponin I (0.000-0.034) ng/mL Total Protein 6.9 (6.3-8.2) g/dL Albumin 4.2 (3.5-5.0) g/dL Lipase 68 (23-300) U/L 07/27/24 Range/Units 11:03 WBC (3.8-10.6) k/uL RBC (3.80-5.40) m/uL Hgb (11.4-16.0) gm/dL Hct (34.0-46.0) % MCV (80.0-100.0) fL MCH (25.0-35.0) pg MCHC (31.0-37.0) g/dL RDW (11.5-15.5) % Plt Count (150-450) k/uL MPV Neutrophils % % Lymphocytes % % Monocytes % % Eosinophils % % Basophils % % Neutrophils # (1.3-7.7) k/uL Lymphocytes # (1.0-4.8) k/uL Monocytes # (0-1.0) k/uL Eosinophils # (0-0.7) k/uL Basophils # (0-0.2) k/uL PT (10.0-12.5) sec INR (<1.2) APTT (22.0-30.0) sec Sodium (137-145) mmol/L Potassium (3.5-5.1) mmol/L Chloride (98-107) mmol/L Carbon Dioxide (22-30) mmol/L Anion Gap mmol/L BUN (7-17) mg/dL Creatinine (0.52-1.04) mg/dL Est GFR (CKD-EPI)AfAm (>60 ml/min/1.73 sqM) Est GFR (CKD-EPI)NonAf (>60 ml/min/1.73 sqM) Glucose (74-99) mg/dL Calcium (8.4-10.2) mg/dL Magnesium (1.6-2.3) mg/dL Total Bilirubin (0.2-1.3) mg/dL AST (14-36) U/L ALT (4-34) U/L Alkaline Phosphatase (38-126) U/L Troponin I <0.012 (0.000-0.034) ng/mL Total Protein (6.3-8.2) g/dL Albumin (3.5-5.0) g/dL Lipase (23-300) U/L Disposition Clinical Impression: Chest pain Disposition: ADMITTED IP TO THIS [facility] Condition: Stable Is patient prescribed a controlled substance at d/c from ED?: No
[2024-07-27] MEDS: LORazepam 2 MG/ML INJ IV STA (11:21)
--- NOTE | 2024-07-27 11:23 | XR ---
EXAMINATION TYPE: XR chest 2V DATE OF EXAM: 07/27/2024 CLINICAL INDICATION: Female, 43 years old with history of difficulty breathing, TECHNIQUE: Frontal and lateral views of the chest are obtained. COMPARISON: None FINDINGS: Overlying bra strap and metallic bilateral nipple ornaments incidentally noted. There is n o focal air space opacity, pleural effusion, or pneumothorax seen. The cardiac silhouette size is wi thin normal limits. The osseous structures are intact. IMPRESSION: No acute cardiopulmonary process. [facility], , 07/27/2024 11:21 AM
[2024-07-27 11:32] LABS: Basophils # (A) 0.1 k/uL (0-0.2); Basophils % (A) 1 %; Eosinophils # (A) 0.2 k/uL (0-0.7); Eosinophils % (A) 2 %; HCT 42.6 % (34.0-46.0); HGB 13.9 gm/dL (11.4-16.0); Lymphocytes % (A) 18 %; MCH 27.8 pg (25.0-35.0); MCHC 32.6 g/dL (31.0-37.0); MCV 85.5 fL (80.0-100.0); Mean Platelet Volume 6.8; Monocytes # (A) 0.4 k/uL (0-1.0); Monocytes % (A) 4 %; Neutrophils # (A) 8.4 k/uL (1.3-7.7); Neutrophils % (A) 75 %; Platelet Count 433 k/uL (150-450); RBC 4.98 m/uL (3.80-5.40); RDW 12.6 % (11.5-15.5); WBC 11.1 k/uL (3.8-10.6)
[2024-07-27 11:44] LABS: Prothrombin Time 11.2 sec (10.0-12.5)
[2024-07-27 12:04] LABS: ALT 24 U/L (4-34); AST 21 U/L (14-36); African American GFR (CKD) >90 (>60 ml/min/1.73 sqM); Albumin 4.2 g/dL (3.5-5.0); Alkaline Phosphatase 46 U/L (38-126); Anion Gap 9 mmol/L; Blood Urea Nitrogen 15 mg/dL (7-17); Calcium 9.2 mg/dL (8.4-10.2); Carbon Dioxide 22 mmol/L (22-30); Chloride 106 mmol/L (98-107); Glucose 144 mg/dL (74-99); Lipase 68 U/L (23-300); Magnesium 1.7 mg/dL (1.6-2.3); Non-African American GFR(CKD) >90 (>60 ml/min/1.73 sqM); Potassium 4.1 mmol/L (3.5-5.1); Sodium 137 mmol/L (137-145); Total Bilirubin 0.7 mg/dL (0.2-1.3); Total Protein 6.9 g/dL (6.3-8.2)
[2024-07-27] MEDS: MAG HYDROX/AL HYDROX/SIMETH 30 ML CUP PO STA (13:13)
[2024-07-27] MEDS: LIDOCAINE VISCOUS 2% 15 ML CUP PO ONE (13:19)
[2024-07-27] MEDS: ONDANSETRON 4 MG/2 ML VIAL IVP STA (13:20)
[2024-07-27] MEDS: METOCLOPRAMIDE 5 MG/ML 2 ML VIAL IVP STA (13:21)
[2024-07-27] MEDS ORDERED: NALOXONE 0.4 MG/ML 1 ML VIAL IV PRN (14:55)
[2024-07-27] MEDS ORDERED: MORPHINE SULFATE 4 MG/ML SYRINGE IV PRN (14:55)
[2024-07-27] MEDS ORDERED: ACETAMINOPHEN TAB 325 MG TAB PO PRN (15:58)
[2024-07-27] MEDS ORDERED: ONDANSETRON 4 MG/2 ML VIAL IVP PRN (15:58)
--- NOTE | 2024-07-27 16:17 | P.HPIM ---
History of Present Illness H&P Date: 07/27/24 Chief Complaint: Anxiety, chest pressure, abdominal pain, vomiting 43-year-old woman, active smoker, with history of hypertension, anxiety/depression, hyperlipidemia, diabetes type 2 presented for evaluation of anxiety, abdominal pain, chest pressure. Patient says that she started to have these issues approximately 1 week ago, and these episodes last for approximately 30 minutes to an hour. During these episodes, she feels extremely panicked, has a pressure in her chest, abdominal pain, is nauseous and is sometimes vomited. She tells me that she used to have the symptoms in the past for which she was on a depression/anxiety medication which seemed to overall improve her symptoms, but approximately 1 year ago she started to take her self off of this medication without up of her physician. Now it appears the symptoms have returned. She does also relate that when she is able to calm herself down and go to sleep she almost immediately wakes up in panic with chest pain. She denies fevers, chills. She does report sweats. She denies palpitations, syncope, presyncope, cough, numbness/weakness of extremities. In the emergency room, patient was afebrile, 131/72, heart rate 86, 98% on room air. CBC demonstrates mild leukocytosis to 11.1, otherwise unremarkable. Basic metabolic panel is unremarkable. Liver function tests are unremarkable. Troponin was less than 0.012 then trended to less than 0.012. Coags are unremarkable. Lipase is 68. Chest x-ray is clear parenchyma bilaterally, normal-sized heart. EKG shows normal sinus rhythm with normal axis, normal OH interval, normal QT interval, normal QRS duration, nonspecific T wave inversions most notable in V4 and V5, otherwise no significant evidence of ischemia. Case was discussed with the emergency room provider and decision was made admit the patient to the hospital for further evaluation of chest pressure. All Systems reviewed and pertinent positives and negatives noted in HPI, all ot her symptoms are negative Gen: In NAD, non-toxic HEENT: normocephalic, atraumatic, hearing acuity is intant, mucous membranes moist CVS: perfusing all extremities well, no pitting edema, systolic murmur heard best at the left upper sternal border Respiratory: symmetric chest expansion, no accessory muscle use, GI: soft, NTTP, ND, : no suprapubic tenderness, no CVA tenderness MSK/Derm: no rashes, cyanosis Neuro: CN II-XII intact, no motor weakness, Psych: cooperative, euthymic mood, judgment and insight is intact Labs and imaging as above Assessment/plan: Chest pain, atypical Panic attacks Anxiety/depression -Admit patient to observation with telemetry -Trend troponins -Risk factors: TSH, A1c, lipid panel -Tobacco cessation counseling provided -Aspirin, statin -Dobutamine stress echo -Echocardiogram -Xanax as needed -Recommend follow-up with PCP to reinitiate SSRI -Recommend referral to therapist Hypertension Hyperlipidemia -Home medications were reviewed, patient is not taking any medications at this time -Await lipid panel to determine need for statin as an outpatient Patient is full code Past Medical History Past Medical History: Diabetes Mellitus, Hypertension Additional Past Medical History / Comment(s): NIDDM type II/diagnosed about 1 year ago, occasional cervical pain/herniated discs, past UTI History of Any Multi-Drug Resistant Organisms: None Reported Additional Past Surgical History / Comment(s): liposuction and abdominoplasty Past Anesthesia/Blood Transfusion Reactions: Previous Problems w/ Anesthesia Additional Past Anesthesia/Blood Transfusion Reaction / Comment(s): Pt takes a long time waking. She has clausterphobia Past Psychological History: Anxiety Smoking Status: Former smoker Past Alcohol Use History: None Reported Past Drug Use History: Marijuana - Past Family History Mother History Unknown: Yes Additional Family Medical History / Comment(s): Mother of unknown causes at the age of 63yrs Father Family Medical History: CVA/TIA, Diabetes Mellitus, Hyperlipidemia, Hypertension Additional Family Medical History / Comment(s): Father is living. Medications and Allergies Home Medications Medication Instructions Recorded Confirmed Type No Known Home Medications 07/27/24 07/27/24 History Allergies Allergy/AdvReac Type Severity Reaction Status Date / Time No Known Allergies Allergy Verified 07/27/24 13:42 Physical Exam Osteopathic Statement: *. No significant issues noted on an osteopathic struc tural exam other than those noted in the History and Physical/Consult. Vitals: Vital Signs Temp Pulse Resp BP Pulse Ox 07/27/24 15:02 98.1 F 92 16 174/99 98 07/27/24 10:14 98.0 F 86 18 131/72 99 Intake and Output 07/27/24 07/27/2407/27/25 06:59 14:59 22:59 Other: Weight 90.718 kg Results CBC & Chem 7: 07/27/24 11:03 07/27/24 11:03 Labs: Abnormal Lab Results - Last 24 Hours (Table) 07/27/24 07/27/24 07/27/24 Range/Units 11:03 11:03 11:03 WBC 11.1 H (3.8-10.6) k/uL Neutrophils # 8.4 H (1.3-7.7) k/uL APTT 21.0 L (22.0-30.0) sec Glucose 144 H (74-99) mg/dL
[2024-07-27] MEDS: LORazepam 1 MG/0.5 ML VIAL IV STA (18:02)
[2024-07-27 18:06] LABS: Appearance,Urine Clear (Clear); Bilirubin,Urine Negative (Negative); Blood,Urine Negative (Negative); Color,Urine Colorless; Glucose,Urine (UA) Trace (Negative); Ketones,Urine Trace (Negative); Leukocyte Esterase,Urine Negative (Negative); Nitrite,Urine Negative (Negative); Protein,Urine Negative (Negative); Specific Gravity,Urine >1.050 (1.001-1.035); Urobilinogen,Urine <2.0 mg/dL (<2.0)
--- NOTE | 2024-07-27 18:08 | CT ---
EXAMINATION TYPE: CT chest angio for PE CT DLP: 509 mGycm, Automated exposure control for dose reduction was used. DATE OF EXAM: 07/27/2024 5:53 PM COMPARISON: Chest radiograph 07/27/2024 CLINICAL INDICATION:Female, 43 years old with history of chest pain radiating into back; Chest pain r adiating into back. TECHNIQUE/CONTRAST: CTA scan of the thorax is performed with IV Contrast, patient injected with 100ml mL of Isovue 370, p ulmonary embolism protocol. MIP images are created and reviewed. FINDINGS: Pulmonary Artery: There is no evidence for a filling defect within the pulmonary vasculature to sugge st acute pulmonary embolism. The pulmonary artery is of normal size. Lungs/Pleura: No evidence of focal consolidation, pleural effusion or pneumothorax. Airway: Large airways are patent. Heart: Size within normal limits.No pericardial effusion No significant coronary artery calcification s. Vasculature: No evidence of aortic aneurysm. Mediastinum: No gross evidence of adenopathy. Musculoskeletal: No acute osseous abnormalities Soft Tissues: Unremarkable. Lower neck: No significant findings. Upper Abdomen: Small gastric fundal diverticulum. Liver is diffusely hypoattenuating. IMPRESSION: 1. No evidence of pulmonary embolism or acute thoracic process. 2. Hepatic steatosis. [facility], , 07/27/2024 6:05 PM
[2024-07-27 18:13] LABS: Amphetamine Screen,Urine Not Detected (NotDetected); Barbiturate Screen,Urine Not Detected (NotDetected); Benzodiazepines Screen,Urine Detected (NotDetected); Cocaine Screen,Urine Not Detected (NotDetected); Methadone Screen, Urine Not Detected (NotDetected); Opiate Screen,Urine Not Detected (NotDetected); Oxycodone Screen, Urine Not Detected (NotDetected); Phencyclidine Screen,Urine Not Detected (NotDetected); Tricyclic Antidepressant,Urine Not Detected (NotDetected); Urn Cannabinoid Scrn Detected (NotDetected)
[2024-07-27] MEDS ORDERED: METOPROLOL TARTRATE 12.5 MG TAB PO SCH (21:00)
[2024-07-27] MEDS: ATORVASTATIN 80 MG TAB PO SCH (22:00)
[2024-07-27] MEDS: CALCIUM CARBONATE 500 MG CHEWABLE PO PRN (22:09)
[2024-07-27] MEDS: ALPRAZolam 0.25 MG TAB PO PRN (22:12)
[2024-07-28 05:35] LABS: Basophils # (A) 0.1 k/uL (0-0.2); Basophils % (A) 1 %; Eosinophils # (A) 0.3 k/uL (0-0.7); Eosinophils % (A) 3 %; HCT 45.1 % (34.0-46.0); HGB 14.4 gm/dL (11.4-16.0); Lymphocytes # (A) 3.5 k/uL (1.0-4.8); Lymphocytes % (A) 35 %; MCH 27.3 pg (25.0-35.0); MCHC 31.9 g/dL (31.0-37.0); MCV 85.7 fL (80.0-100.0); Mean Platelet Volume 6.8; Monocytes # (A) 0.6 k/uL (0-1.0); Monocytes % (A) 6 %; Neutrophils # (A) 5.1 k/uL (1.3-7.7); Neutrophils % (A) 51 %; Platelet Count 415 k/uL (150-450); RBC 5.27 m/uL (3.80-5.40); RDW 12.5 % (11.5-15.5); WBC 10.1 k/uL (3.8-10.6)
[2024-07-28] MEDS ORDERED: DOBUTamine DRIP for NUC MED 500 MG in DEXTROSE/WATER 1 250ML.BAG IV PRN (06:00)
[2024-07-28 06:03] LABS: African American GFR (CKD) >90 (>60 ml/min/1.73 sqM); Anion Gap 12 mmol/L; Blood Urea Nitrogen 9 mg/dL (7-17); Calcium 9.7 mg/dL (8.4-10.2); Carbon Dioxide 22 mmol/L (22-30); Chloride 102 mmol/L (98-107); Glucose 121 mg/dL (74-99); Non-African American GFR(CKD) >90 (>60 ml/min/1.73 sqM); Potassium 3.6 mmol/L (3.5-5.1); Sodium 136 mmol/L (137-145)
[2024-07-28] MEDS: ASPIRIN 81 MG PO SCH (08:01)
[2024-07-28 09:15] LABS: T4, Free (Free Thyroxine) 1.12 ng/dL (0.78-2.19)
[2024-07-28] MEDS: LORazepam 1 MG/0.5 ML VIAL IV STA (10:47)
--- NOTE | 2024-07-28 12:10 | CA ---
Transthoracic Echo Report Name: Parker New Age: 43 Gender: F : 1980 Exam Date: 07/28/2024 08:37 Exam Location: [place] [facility] Ht (in): 65 Wt (lb): 200 Ordering Physician: Shannon Shipley MD Attending/Referring Phys: Personal Care Home Administrator Nereyda Francis RDCS Procedure CPT: Indications: systolic murmur Cardiac Hx: Technical Quality: Fair Contrast 1: Total Dose (mL): Contrast 2: Total Dose (mL): MEASUREMENTS (Male / Female) Normal Values 2D ECHO LV Diastolic Diameter PLAX 3.8 cm 4.2 - 5.9 / 3.9 - 5.3 cm LV Systolic Diameter PLAX 3.0 cm IVS Diastolic Thickness 1.2 cm 0.6 - 1.0 / 0.6 - 0.9 cm LVPW Diastolic Thickness 1.1 cm 0.6 - 1.0 / 0.6 - 0.9 cm LV Relative Wall Thickness 0.6 LVOT Diameter 2.0 cm LV Diastolic Volume MOD BP 89.8 cm??? 67 - 155 / 56 - 104 cm??? LV Systolic Volume MOD BP 32.0 cm??? 22 - 58 / 19 - 49 cm??? LV Ejection Fraction MOD BP 64.4 % >= 55 % LV Cardiac Index MOD BP 2340.2 cm???/min???m??? LV Diastolic Volume MOD 4C 87.8 cm??? LV Systolic Volume MOD 4C 30.6 cm??? LV Ejection Fraction MOD 4C 65.2 % LV Cardiac Index MOD 4C 2317.3 cm???/min???m??? LV Diastolic Length 4C 8.3 cm LV Systolic Length 4C 6.7 cm LV Diastolic Volume MOD 2C 89.4 cm??? LV Systolic Volume MOD 2C 31.3 cm??? LV Ejection Fraction MOD 2C 65.0 % LV Cardiac Index MOD 2C 2351.7 cm???/min???m??? LV Diastolic Length 2C 8.0 cm LV Systolic Length 2C 7.2 cm LA Volume 51.5 cm??? 18 - 58 / 22 - 52 cm??? LA Volume Index 24.8 cm???/m??? 16 - 28 cm???/m??? DOPPLER AV Peak Velocity 182.0 cm/s AV Peak Gradient 13.3 mmHg AV Mean Velocity 122.8 cm/s AV Mean Gradient 6.8 mmHg AV Velocity Time Integral 31.1 cm LVOT Peak Velocity 137.5 cm/s LVOT Peak Gradient 7.6 mmHg LVOT Velocity Time Integral 21.8 cm LVOT Stroke Volume 71.1 cm??? LVOT Stroke Volume Index 35.9 ml/m??? LVOT Cardiac Index 2877.3 cm???/min???m??? AV Area Cont Eq vti 2.3 cm??? AV Area Cont Eq pk 2.5 cm??? MV Area PHT 4.1 cm??? Mitral E Point Velocity 73.3 cm/s Mitral A Point Velocity 73.6 cm/s Mitral E to A Ratio 1.0 MV Deceleration Time 186.5 ms PV Peak Velocity 150.1 cm/s PV Peak Gradient 9.0 mmHg FINDINGS Left Ventricle Left ventricular ejection fraction is estimated at 60-65 %. Mildly increased septal wall thickness. Mildly increased posterior wall thickness. Left ventricular cavity size normal. No obvious regional wall motion abnormalities. Right Ventricle Normal right ventricular size and function. Unable to estimate the right ventricular systolic pressure. Right Atrium Normal right atrial size. Left Atrium Normal left atrial size. Mitral Valve Structurally normal mitral valve. No evidence for mitral valve prolapse. No mitral stenosis. Trace mitral regurgitation. Aortic Valve Aortic valve not well visualized. No aortic valve stenosis or regurgitation. Tricuspid Valve Structurally normal tricuspid valve. No tricuspid stenosis. Trace tricuspid regurgitation. Pulmonic Valve Pulmonic valve not well visualized. No pulmonic stenosis. No pulmonic regurgitation. Pericardium No pericardial effusion. Aorta Normal size aortic root and proximal ascending aorta. CONCLUSIONS Left ventricular ejection fraction is estimated at 60-65 % Trace mitral regurgitation. Trace tricuspid regurgitation. Previewed by: Dr. Phan Rojas DO (Electronically Signed) Final Date: 28 July 2024 12:09
--- NOTE | 2024-07-28 12:17 | CA ---
Stress Echo Report Parker New Age: 43 Gender: F : 1980 Exam Date: 07/28/2024 09:16 Exam Location: [place] Stress Ht (in): 65 Wt (lb): 200 Ordering Physician: Shannon Shipley MD Referring Physician: ZORAN, Cotton Expert: MOISÉS Technologist Procedure CPT: Indication: Chest Pain ICD-9 Codes: Rhythm: Patient History: Cardiac Medications: SEE CHART Medications in past 24 hours: Contrast: N/A Stress Results Protocol: Kev Total dose(mL): NA Exercise Duration (min:sec): 8:[address] Depression (mm): Angina Score: Fried Score: METS: 9.5 Resting HR: 118 Resting BP: 143 / 80 Peak HR: 158 Peak BP: 170 / 84 Max Predicted HR: 177 89 % Max Predicted HR Target HR: 150 Double Product: 74207 Stress Summary: BP Response: Reason for Termination: Reached target heart rate or work-load Cardiac Symptoms: NO SYMPTOMS ECG Analysis Resting ECG: Stress ECG: Arrhythmia: Echo Analysis Resting Echo: Peak Echo Analysis: MEASUREMENTS (Male/Female) Normal Values CONCLUSIONS Patient underwent exercise stress echo with a Kev protocol treadmill stress test. Patient exercised into Stage 3 for a total of 8 minutes and 10 seconds reaching a total of 9.5 METS. Patient's maximum heart rate was 158 which represented 89% age- predicted maximum heart rate. Stress EKG portion: At baseline patient's EKG showed normal sinus rhythm, normal axis, no signficant ST or T wave abnormalities. At peak exercise, EKG showed no change from baseline. Stress echo portion: 2-D echocardiogram was performed in the parasternal long, personal short, apical 2 and apical four-chamber views at rest, peak exercise and in recovery. At baseline, echocardiogram showed left ventricular ejection fraction 55% without wall motion abnormalities. With peak exercise, echocardiogram shows improvement in left ventricular ejection fraction, increase contractility, decrease in left ventricular end systolic dimension without wall motion abnormalities consistent with a normal response to exercise. Conclusions: 1. Normal EKG and echo response to exercise without evidence of inducible ischemia. 2. Fair exercise capacity. Dr. Phan Rojas DO (Electronically Signed) Final Date: 28 July 2024 12:16
--- NOTE | 2024-07-28 14:42 | P.PN ---
Subjective Progress Note Date: 07/28/24 Pt continues to have intermittent episodes of nausea, vomiting, agitation, hypertension, and tachycardia. Echo and exercise stress echo were negative. EKG is normal. Gen: In NAD, non-toxic HEENT: normocephalic, atraumatic, hearing acuity is intant, mucous membranes moist CVS: perfusing all extremities well, no pitting edema, systolic murmur heard best at the left upper sternal border Respiratory: symmetric chest expansion, no accessory muscle use, GI: soft, NTTP, ND, : no suprapubic tenderness, no CVA tenderness MSK/Derm: no rashes, cyanosis Neuro: CN II-XII intact, no motor weakness, Psych: cooperative, euthymic mood, judgment and insight is intact Hospital Course: 43-year-old woman, active smoker, with history of hypertension, anxiety/depression, hyperlipidemia, diabetes type 2 presented for evaluation of anxiety, abdominal pain, chest pressure. In the emergency room, patient was afebrile, 131/72, heart rate 86, 98% on room air. CBC demonstrates mild leukocytosis to 11.1, otherwise unremarkable. Basic metabolic panel is unremarkable. Liver function tests are unremarkable. Troponin was less than 0.012 then trended to less than 0.012. Coags are unremarkable. Lipase is 68. Chest x-ray is clear parenchyma bilaterally, normal-sized heart. EKG shows normal sinus rhythm with normal axis, normal TN interval, normal QT interval, normal QRS duration, nonspecific T wave inversions most notable in V4 and V5, otherwise no significant evidence of ischemia. Case was discussed with the emergency room provider and decision was made admit the patient to the hospital for further evaluation of chest pressure. Assessment/plan: Chest pain, atypical Panic attacks Anxiety/depression -Admit patient to observation with telemetry -Trend troponins -Risk factors: TSH, A1c, lipid panel -Tobacco cessation counseling provided -Aspirin, statin -Dobutamine stress echo -Echocardiogram -Xanax as below -Recommend follow-up with PCP to reinitiate SSRI -Recommend referral to therapist Hypertensive Urgency -start standing xanax 1mg TID for agitation episodes -start coreg 25mg BID -awaiting plasma metanephrines Hyperlipidemia -Home medications were reviewed, patient is not taking any medications at this time -Await lipid panel to determine need for statin as an outpatient Patient is full code Objective - Vital Signs Vital signs: Vital Signs Temp 98.1 F 07/28/24 14:33 Pulse 106 H 07/28/24 14:38 Resp 14 07/28/24 14:33 BP 179/87 07/28/24 14:38 Pulse Ox 99 07/28/24 14:33 FiO2 Intake & Output 07/27/24 07/28/24 07/28/24 18:59 06:59 18:59 Intake Total 90 Balance 90 Weight 90.718 kg Intake: Oral 90 Other: # Voids 2 - Labs CBC & Chem 7: 07/28/24 04:57 07/28/24 04:57 Labs: Abnormal Lab Results - Last 24 Hours (Table) 07/27/24 07/27/24 07/27/24 Range/Units 17:40 17:40 20:36 Sodium (137-145) mmol/L Glucose (74-99) mg/dL Hemoglobin A1c 6.2 H (<=6.0) % TSH (0.465-4.680) mIU/L Ur Specific Joshua >1.050 H (1.001-1.035) Urine Glucose (UA) Trace H (Negative) Urine Ketones Trace H (Negative) U Benzodiazepines Scrn Detected H (NotDetected) U Marijuana (THC) Screen Detected H (NotDetected) 07/28/24 Range/Units 04:57 Sodium 136 L (137-145) mmol/L Glucose 121 H (74-99) mg/dL Hemoglobin A1c (<=6.0) % TSH 7.320 H (0.465-4.680) mIU/L Ur Specific Joshua (1.001-1.035) Urine Glucose (UA) (Negative) Urine Ketones (Negative) U Benzodiazepines Scrn (NotDetected) U Marijuana (THC) Screen (NotDetected)
[2024-07-28 16:05] LABS: Chol/HDL Ratio 4.36 Ratio
[2024-07-28] MEDS: carvediloL 12.5 MG TAB PO SCH (16:14)
[2024-07-28] MEDS: ALPRAZolam 1 MG TAB PO SCH (16:14)
[2024-07-28] MEDS: METOCLOPRAMIDE 5 MG/ML 2 ML VIAL IVP PRN (16:14)
[2024-07-28] MEDS: KETOROLAC 15 MG/ML 1 ML VIAL IVP PRN (20:56)
[2024-07-29 04:56] LABS: African American GFR (CKD) >90 (>60 ml/min/1.73 sqM); Anion Gap 11 mmol/L; Blood Urea Nitrogen 14 mg/dL (7-17); Calcium 10.3 mg/dL (8.4-10.2); Carbon Dioxide 24 mmol/L (22-30); Chloride 100 mmol/L (98-107); Glucose 119 mg/dL (74-99); Magnesium 1.8 mg/dL (1.6-2.3); Non-African American GFR(CKD) >90 (>60 ml/min/1.73 sqM); Potassium 3.4 mmol/L (3.5-5.1); Sodium 135 mmol/L (137-145)
[2024-07-29 06:08] LABS: Basophils # (A) 0.1 k/uL (0-0.2); Basophils % (A) 1 %; Eosinophils # (A) 0.5 k/uL (0-0.7); Eosinophils % (A) 5 %; HCT 46.5 % (34.0-46.0); HGB 15.7 gm/dL (11.4-16.0); Lymphocytes # (A) 3.6 k/uL (1.0-4.8); Lymphocytes % (A) 35 %; MCH 28.2 pg (25.0-35.0); MCHC 33.9 g/dL (31.0-37.0); MCV 83.4 fL (80.0-100.0); Mean Platelet Volume 7.7; Monocytes # (A) 0.6 k/uL (0-1.0); Monocytes % (A) 6 %; Neutrophils # (A) 5.2 k/uL (1.3-7.7); Neutrophils % (A) 51 %; Platelet Count 392 k/uL (150-450); RBC 5.58 m/uL (3.80-5.40); RDW 12.8 % (11.5-15.5); WBC 10.3 k/uL (3.8-10.6)
--- NOTE | 2024-07-29 08:11 | US ---
EXAMINATION TYPE: US renal artery duplex complete DATE OF EXAM: 07/29/2024 COMPARISON: CT abdomen and pelvis July 25, 2024 CLINICAL INDICATION: Female, 43 years old with history of secondary htn; TECHNIQUE: Grayscale, color Doppler and spectral Doppler imaging of the bilateral renal arteries and kidneys. FINDINGS: MEASUREMENTS: RENAL SIZE: Right Kidney: 11.2 x 5.0 x 4.6 cm Left Kidney: 10.8 x 4.9 x 5.7 cm Right Kidney: No hydronephrosis or lesions seen Left Kidney: No hydronephrosis or lesions seen Abd Aorta: No AAA visualized RESISTANCE INDEX Right: 0.72 Left: 0.68 RA/AO RATIO (< 3.5 ) Right: 1.7 Left: 2.1 RENAL ARTERY VELOCITY ( < 180 cm/s) Right: 151 Left: 185 Signal Constructor Notes: Portable ultrasound exam. Patient unable to stay awake and hold breath for op timal waveforms. Grayscale imaging of the kidneys and show no evidence for hydronephrosis or mass. No renal calculi or cysts visualized. IMPRESSION: Suboptimal study. No convincing evidence for hemodynamically significant focal renal juana ry stenosis. [facility], , 07/29/2024 8:09 AM
--- NOTE | 2024-07-29 11:05 | P.NPCON ---
History of Present Illness - Reason for Consult accelerated hypertension - History of Present Illness Reason for consultation: Hypertension History of present illness: Patient is a 43-year-old female seen in new consultation for hypertension. Patient states she has history of hypertension and was taking lisinopril outpatient but stopped taking it a little over a year ago. Patient states her blood pressure improved with exercise and dietary changes. Patient does have history of cyclic vomiting syndrome and also history of marijuana abuse. She came to the hospital with abdominal pain. Patient states she was having episodes of vomiting and also episodes of shortness of breath. Patient states these episodes were waking her up from sleep. She denies any personal history of electrolyte disorders. She is unsure of any family history of renal disease or stroke. She denies gross hematuria or dysuria. Blood pressures this admission has been quite labile ranging from systolic 120s to over 200. She denies any headaches. Denies vision changes. No chest pain. No edema. Vital signs are stable. General: No acute distress. HEENT: Head exam is unremarkable. LUNGS: No audible rhonchi or wheezes. HEART: Rate and Rhythm are regular. ABDOMEN: Nontender, obese. EXTREMITITES: No edema. Past Medical History Past Medical History: Diabetes Mellitus, Hypertension Additional Past Medical History / Comment(s): NIDDM type II/diagnosed about 1 year ago, occasional cervical pain/herniated discs, past UTI History of Any Multi-Drug Resistant Organisms: None Reported Additional Past Surgical History / Comment(s): liposuction and abdominoplasty Past Anesthesia/Blood Transfusion Reactions: Previous Problems w/ Anesthesia Additional Past Anesthesia/Blood Transfusion Reaction / Comment(s): Pt takes a long time waking. She has clausterphobia Past Psychological History: Anxiety Smoking Status: Former smoker Past Alcohol Use History: None Reported Past Drug Use History: Marijuana - Past Family History Mother History Unknown: Yes Additional Family Medical History / Comment(s): Mother of unknown causes at the age of 63yrs Father Family Medical History: CVA/TIA, Diabetes Mellitus, Hyperlipidemia, Hypertension Additional Family Medical History / Comment(s): Father is living. Medications and Allergies Home Medications Medication Instructions Recorded Confirmed Type No Known Home Medications 07/27/24 07/27/24 History Allergies Allergy/AdvReac Type Severity Reaction Status Date / Time No Known Allergies Allergy Verified 07/27/24 13:42 Physical Exam Vitals: Vital Signs Temp Pulse Resp BP Pulse Ox 07/29/24 07:55 98.1 F 78 16 207/129 98 07/29/24 03:00 97.8 F 76 16 125/69 98 07/29/24 02:00 88 07/28/24 20:43 88 07/28/24 19:54 98.3 F 88 17 186/95 97 07/28/24 14:38 106 H 179/87 07/28/24 14:33 98.1 F 97 14 209/110 99 07/28/24 14:00 106 H Intake and Output 07/28/24 07/29/24 07/29/24 22:59 06:59 14:59 Intake Total 360 Balance 360 Intake: Oral 360 Other: Voiding Method Toilet # Voids 1 1 Results - Lab Results Most recent lab results Calcium 10.3 mg/dL (8.4-10.2) H 07/29/24 04:29 Magnesium 1.8 mg/dL (1.6-2.3) 07/29/24 04:29 07/29/24 04:29 07/29/24 04:29 Assessment and Plan Plan: Assessment: 1. Benign hypertension. This appears to be associated with underlying psychiatric illness particularly panic attacks and also with episodes of vomiting. She does have a history of hypertension and stopped taking lisinopril over a year ago. She is currently maintained on Coreg. No evidence of renal artery stenosis noted on duplex ultrasound. Preserved ejection fraction noted on echocardiogram. TSH mildly high at 7.3 with normal free T4. No PE noted on CTA. 2. Cyclic vomiting syndrome. 3. Marijuana abuse. 4. Mild hypokalemia from poor intake. Replaced. 5. Anxiety. Psychiatry consulted. Plan: Maintain low-salt diet. Add hydralazine 25 mg 3 times daily. Hold for systolic blood pressure less than 120. Follow-up renin and aldosterone level and also metanephrines. Check a.m. cortisol level and also 24-hour urine cortisol level. Once the above blood work is collected, will add RAASi. Thank you for the consultation. I will continue to follow the patient with you during her hospital stay.
[2024-07-29] MEDS: POTASSIUM CHLORIDE ER 20 MEQ TAB.ER PO STA (11:14)
[2024-07-29] MEDS: PANTOPRAZOLE 40 MG TABLET PO SCH (14:09)
--- NOTE | 2024-07-29 14:49 | P.CN ---
Psychiatric Consult - . Consult date: 07/29/24 Consult:: 07/29/24 14:44 IDENTIFYING DATA: This patient is a 43-year-old female, and unemployed REASON FOR REFERRAL: Psychiatry was consulted for anxiety HISTORY OF PRESENT ILLNESS: The patient presented to the hospital with shortness of breath for the past 5 days. No significant for elevated blood pressure, TSH elevated however free T4 within normal limits. EKG showed normal sinus rhythm, QTc within normal limits. Patient seen and evaluated in her room. She states for the past 5 days she has been having a cycle of chest pain with resultant panic attacks and vomiting that vary in frequency that can occur up to 10 times per day. She mentions something similar has happened last summer however the intensity was not as severe and it went away on its own. She does mention having a history of anxiety and was previously treated for Cymbalta however this was stopped roughly a year and a half ago with no worsening in symptoms. Patient denied any stressors or recent medication changes. Patient denied any sleep or appetite changes, anhedonia but did report mood swings. At this time patient denies any suicidal or homicidal ideations, intent or plan. Patient denies any auditory, visual hallucinations and denies any paranoia or delusions. Patients admits to using cannabis occasionally "on the weekends only" and states she recently stopped smoking cigarettes a few days ago. She denied any alcohol use. PAST PSYCHIATRIC HISTORY: Patient has a history of anxiety, depression. Patient denies being on any psychiatric medications. She has tried Cymbalta in the past. Patient reports most recent inpatient hospitalization being at [facility] roughly 2 years ago. Patient denies any psychiatric outpatient follow-up. Patient reports 1 suicide attempt 2 years ago. PAST MEDICAL HISTORY: Diabetes, hypertension. ALLERGIES: as per EMR. CHEMICAL DEPENDENCY HISTORY: as per HPI. FAMILY PSYCHIATRIC/SUBSTANCE USE HISTORY: Denies SOCIAL HISTORY: Patient is and has no children. She completed [employer] school but is currently retired. MENTAL STATUS EXAM: General Appearance: Patient appears to be stated age is alert, pleasant, and cooperative. Patient appears to have poor hygiene and grooming wearing hospital gown with fair eye contact. Behavior: Patient is calmly lying in bed without any agitated behavior. Speech: Patient's speech is fluent and nonpressured. Mood/Affect: Patient reports their mood is "anxious", affect is congruent Suicidality/Homicidality: Patient denies having any suicidal or homicidal ideation intent or plan. Perceptions: Patient denies any visual hallucinations and denies any auditory hallucinations Though content/process: There is no evidence of any delusional thought content and thought process is linear and logical. Memory and concentration: AOX3, grossly intact for the purposes of this session. Can spell "WORLD" backwards Judgment and insight: Poor IMPRESSIONS: Anxiety, unspecified Cluster B traits PLAN: -At this time patient DOES NOT meet criteria for inpatient psychiatric admission. -Would recommend the following medication changes/additions: Start Lexapro 5 mg daily for anxiety, discontinue Xanax and start Klonopin 1 mg twice daily for anxiety. Psychoeducation provided on the short-term use of benzodiazepines and the risks of long-term use including dependence, tolerance and falls did not appear to be in agreement with this -transmission worker to provide patient with outpatient mental health/psychiatry resources for appropriate follow up upon discharge -Communicated plan to patient's nurse -Will continue to follow along -Please contact with any questions.
--- NOTE | 2024-07-29 15:14 | P.PN ---
Subjective Progress Note Date: 07/29/24 Subjective: Patient seen and examined at bedside. No acute events overnight. She still having similar complaints of chest pressure, panic attacks as well as high blood pressure. She is also having difficulty keeping things down. Pertinent positives and negatives as discussed above, a complete review of systems was performed and all other systems are negative. Vitals Signs Reviewed. General: Nontoxic, no distress, appears at stated age Derm: Warm, dry Head: Atraumatic, normocephalic, symmetric Eyes: EOMI, no lid lag, anicteric sclera Mouth: No lip lesion, mucus membranes moist Cardiovascular: S1S2 reg, no murmur Lungs: CTA bilateral, no rhonchi, no rales, no accessory muscle use Abdominal: Soft, nontender to palpation, no guarding, no appreciable organomegaly Ext: No gross muscle atrophy, no edema, no contractures Neuro: CN II-XI grossly intact, no focal neuro deficits Psych: Alert, oriented, appropriate affect, anxious appearing Data Reviewed Today: Pertinent Labs: WBC 10.3, hemoglobin 15.7, sodium 135, potassium 3.4, magnesium 1.8 Imaging: Renal artery ultrasound did not show any stenosis Assessment and Plan: Active: Hypertensive urgency Anxiety disorder Atypical chest pain Marijuana use disorder -Negative stress echo -Nephrology note reviewed, likely essential hypertension given patient was previously on lisinopril which she stopped taking, possibly triggered by anxiety as well -She was started on hydralazine 25 3 times daily, carvedilol, 25 twice daily -Pending cortisol metanephrines as well as aldosterone and renin levels -Psychiatry note reviewed, patient started on Lexapro 5 daily, Klonopin 1 twice daily, discontinue Xanax -On aspirin 81 daily Dyslipidemia -Started on atorvastatin 80 daily Elevated TSH -Normal free T4, repeat in 4 to 6 weeks GERD -Tums as needed, pantoprazole 40 daily DVT ppx: Ambulatory Code status: Full code Anticipated discharge place: Pending clinical course Anticipated discharge time: Pending clinical course Objective - Vital Signs Vital signs: Vital Signs Temp 98.1 F 07/29/24 07:55 Pulse 78 07/29/24 07:55 Resp 16 07/29/24 07:55 BP 192/94 07/29/24 11:25 Pulse Ox 98 07/29/24 07:55 FiO2 Intake & Output 07/28/24 07/29/2407/29/25 18:59 06:59 18:59 Intake Total 360 Balance 360 Intake: Oral 360 Other: Voiding Method Toilet # Voids 1 1 - Labs CBC & Chem 7: 07/29/24 04:29 07/29/24 04:29 Labs: Abnormal Lab Results - Last 24 Hours (Table) 07/28/24 07/29/24 07/29/24 Range/Units 04:57 04:29 04:29 RBC 5.58 H (3.80-5.40) m/uL Hct 46.5 H (34.0-46.0) % Sodium 135 L (137-145) mmol/L Potassium 3.4 L (3.5-5.1) mmol/L Glucose 119 H (74-99) mg/dL Calcium 10.3 H (8.4-10.2) mg/dL Triglycerides 306.00 H (0.00-149.00) mg/dL VLDL Cholesterol, Calc 61.20 H (5.00-40.00) mg/dL
[2024-07-29] MEDS: TRIMETHOBENZAMIDE 100 MG/ML 2 ML VIAL IM PRN (16:03)
[2024-07-29] MEDS: clonazePAM 1 MG TAB PO SCH (16:48)
[2024-07-29] MEDS: ESCITALOPRAM 5 MG TAB PO SCH (16:48)
[2024-07-29] MEDS: hydrALAZINE HCL 25 MG TAB PO SCH (16:48)
[2024-07-30 08:02] VITALS: RESP 16
[2024-07-30 08:55] LABS: Magnesium 1.7 mg/dL (1.5-2.4)
[2024-07-30 08:56] LABS: BUN/Creat Ratio 19.71 Ratio (12.00-20.00); Blood Urea Nitrogen 13.8 mg/dL (9.0-27.0); Calcium 10.3 mg/dL (8.7-10.3); Carbon Dioxide 23.6 mmol/L (21.6-31.8); Chloride 98 mmol/L (96-109); Glucose 169 mg/dL (70-110); Potassium 3.9 mmol/L (3.5-5.5); Sodium 136 mmol/L (135-145)
--- NOTE | 2024-07-30 11:09 | P.PN ---
Subjective Patient is seen in follow-up for hypertension. Blood pressure is now consistently elevated. Potassium level normal. GFR at baseline. No chest pain or shortness of breath. Vital signs are stable. General: No acute distress. HEENT: Head exam is unremarkable. LUNGS: No audible rhonchi or wheezes. HEART: Rate and Rhythm are regular. ABDOMEN: Nontender. EXTREMITITES: No edema. Objective - Vital Signs Vital signs: Vital Signs Temp 97.4 F L 07/30/24 07:00 Pulse 91 07/30/24 07:00 Resp 16 07/30/24 07:00 BP 177/107 07/30/24 07:00 Pulse Ox 97 07/30/24 07:00 FiO2 Intake & Output 07/29/24 07/30/24 07/30/24 18:59 06:59 18:59 Intake Total 720 118 Balance 720 118 Intake: Oral 720 118 Other: Voiding Method Toilet # Voids 3 3 # Bowel Movements 1 - Labs CBC & Chem 7: 07/29/24 04:29 07/30/24 02:51 Labs: Abnormal Lab Results - Last 24 Hours (Table) 07/30/24 Range/Units 02:51 Anion Gap 14.40 H (4.00-12.00) mmol/L Glucose 169 H (70-110) mg/dL Assessment and Plan Plan: Assessment: 1. Benign hypertension. This appears to be associated with underlying psychiatric illness particularly panic attacks and also with episodes of vomiting. She does have a history of hypertension and stopped taking lisinopril over a year ago. She is currently maintained on Coreg and hydralazine. No evidence of renal artery stenosis noted on duplex ultrasound. Preserved ejection fraction noted on echocardiogram. TSH mildly high at 7.3 with normal free T4. No PE noted on CTA. Cortisol level 20.3. 2. Cyclic vomiting syndrome. 3. Marijuana abuse. 4. Mild hypokalemia from poor intake. Replaced. Improved. 5. Anxiety. Psychiatry following. Plan: Maintain low-salt diet. Add lisinopril 10 mg once daily. Follow-up renin and aldosterone level and also metanephrines. Follow-up 24-hour urine cortisol level.
[2024-07-30] MEDS: lisinopriL 10 MG TAB PO SCH (11:43)
[2024-07-30 14:07] VITALS: BP 136/80; PULSE 94; TEMP 98.2
--- NOTE | 2024-07-30 14:25 | P.PN ---
Progress Note - Text Progress Note Date: 07/30/24 IDENTIFYING DATA: This patient is a 43-year-old female, and unemployed REASON FOR CONSULT: Anxiety INTERVAL HISTORY: Patient seen and evaluated. She continues to deny any suicidal ideation, reporting improvement in terms of her anxiety rating this a 6 out of 10 today. She does report some sedation with the Klonopin. She has tolerating the Lexapro well. She reports poor appetite due to her fear of vomiting however was encouraged to maintain hydration. Patient was goal oriented today, talked about her desire to become established with a psychiatrist and resources will be provided for that today. MENTAL STATUS EXAM: General Appearance: Patient appears to be stated age. Patient appears to have fair hygiene and grooming wearing hospital gown with fair eye contact. Behavior: Patient is calmly lying in bed without any agitated behavior. Speech: Normal rate, volume and tone Mood/Affect: Mood described as better and affect is blunted, reactive Suicidality/Homicidality: Patient denies any suicidal or homicidal ideations Perceptions: There are no perceptual abnormalities Though content/process: Thought process is linear and logical, patient was goal oriented today Judgment and insight: Fair IMPRESSIONS: Anxiety, unspecified Cluster B traits PLAN: -At this time patient DOES NOT meet criteria for inpatient psychiatric admission. -Would recommend the following medication changes/additions: Was going to increase patient's Lexapro today however given discharge plan for today will continue this med at 5 mg daily. Patient to be provided resources for outpatient psychiatrist in the area and patient was encouraged to become established with one for further medication adjustments. -coal chute worker to provide patient with outpatient mental health/psychiatry resources for appropriate follow up upon discharge -Communicated plan to patient's nurse -Psychiatry will sign off at this time -Please contact with any questions.
--- NOTE | 2024-07-30 15:36 | P.DS ---
Providers Date of admission: 07/27/24 14:14 Expected date of discharge: 07/30/24 Attending physician: Shannon Shipley MD Consults: 07/29/24 08:22 Consult Physician Routine Consulting Provider: Janet Hutchins Consult Reason/Comments: paroxysmal HTN Do you want consulting provider notified?: Yes 07/29/24 09:29 Consult Physician Routine Consulting Provider: Marcelino Alatorre Consult Reason/Comments: anxiety Do you want consulting provider notified?: Yes Primary care physician: [facility] Course: Discharge Diagnosis: Hypertensive urgency Hypokalemia Anxiety disorder Atypical chest pain Marijuana use disorder Nicotine dependence Dyslipidemia Elevated TSH GERD Hospital Course: 43-year-old woman, active smoker, with history of hypertension, anx iety/depression, hyperlipidemia, diabetes type 2 presented for evaluation of anxiety, abdominal pain, chest pressure. In the emergency room, patient was afebrile, 131/72, heart rate 86, 98% on room air. CBC demonstrates mild leukocytosis to 11.1, otherwise unremarkable. Basic metabolic panel is unremarkable. Liver function tests are unremarkable. Troponin was less than 0.012 then trended to less than 0.012. Coags are unremarkable. Lipase is 68. Chest x-ray is clear parenchyma bilaterally, normal-sized heart. EKG shows normal sinus rhythm with normal axis, normal OK interval, normal QT interval, normal QRS duration, nonspecific T wave inversions most notable in V4 and V5, otherwise no significant evidence of ischemia. Chest CTA did not show any PE, did show hepatic steatosis. Case was discussed with the emergency room provider and decision was made admit the patient to the hospital for further evaluation of chest pressure. Stress echo negative for ischemia, echocardiogram showed EF 60 to 65%. Workup for secondary hypertension mostly unremarkable. Abdominal ultrasound did not show any renal artery stenosis. Catecholamine levels, aldosterone and renin levels are still pending. Nephrology was consulted given labile blood pressure. Started on new antihypertensives. Patient also having severe anxiety, was seen by psychiatry, started on Lexapro. Patient being discharged on new antihypertensives, close follow-up with PCP and nephrology. Will need further titration of Lexapro outpatient. Patient seen and examined at bedside. Vital signs reviewed and stable. General: Nontoxic, no distress, appears at stated age Derm: Warm, dry Head: Atraumatic, normocephalic, symmetric Eyes: EOMI, no lid lag, anicteric sclera Mouth: No lip lesion, mucus membranes moist Cardiovascular: S1S2 reg, no murmur Lungs: CTA bilateral, no rhonchi, no rales, no accessory muscle use Abdominal: Soft, nontender to palpation, no guarding, no appreciable organomegaly Ext: No gross muscle atrophy, no edema, no contractures Neuro: CN II-XI grossly intact, no focal neuro deficits Psych: Alert, oriented, appropriate affect A total of 38 minutes of time were spent preparing this complex discharge summary. Patient was discharged on 07/30/2024 at 1346. Patient Condition at Discharge: Stable Plan - Discharge Summary Discharge Rx Participant: No New Discharge Prescriptions: New hydrALAZINE HCL [Apresoline] 25 mg PO TID #120 tab carvediloL [Coreg*] 25 mg PO BID-W/MEALS #120 tab Atorvastatin [Lipitor] 80 mg PO HS #90 tab Escitalopram [Lexapro] 5 mg PO DAILY #90 tab lisinopriL [Zestril] 10 mg PO DAILY #90 tab Discharge Medication List Atorvastatin [Lipitor] 80 mg PO HS #90 tab 07/30/24 [Rx] Escitalopram [Lexapro] 5 mg PO DAILY #90 tab 07/30/24 [Rx] carvediloL [Coreg*] 25 mg PO BID-W/MEALS #120 tab 07/30/24 [Rx] hydrALAZINE HCL [Apresoline] 25 mg PO TID #120 tab 07/30/24 [Rx] lisinopriL [Zestril] 10 mg PO DAILY #90 tab 07/30/24 [Rx] Follow up Appointment(s)/Referral(s): Sandy Roper MD [Primary Care Provider] - 1-2 days Matteo Dc DO [STAFF PHYSICIAN] - 1 Week Patient Instructions/Handouts: Chronic Hypertension (DC), Hypertensive Crisis (DC), Anxiety (GEN) Activity/Diet/Wound Care/Special Instructions: Please see PCP and nephrology. Discharge/Stand Alone Forms: Who Do I Call?, Outpatient Counseling, Outpatient Therapy List Discharge Disposition: HOME SELF-CARE
[2024-08-04 12:20] LABS: Free Cortisol 24 Hour,Urine 67.1 ug/day (<45.0)
[2024-08-09 16:38] LABS: Normetanephrine, Free 144 pg/mL (< OR = 148); Total, Free (MN + NMN) 144 pg/mL (< OR = 205)
== END 2024-07-30 15:32 | disposition home or self-care (01) | DRG 305 ==
LOC: EC 10:03 → 6NMEDSUR 14:14 → INTOOBSV 14:14 → OBSVTOIN 14:14 → 6NMEDSUR 15:40
PROVIDERS: ADMIT Internal Medicine; ATTEND Internal Medicine
DX: I16.0 Hypertensive urgency (principal); D72.829 Elevated white blood cell count, unspecified; E11.9 Type 2 diabetes mellitus without complications; E78.5 Hyperlipidemia, unspecified; E87.6 Hypokalemia; I10 Essential (primary) hypertension; F12.10 Cannabis abuse, uncomplicated; F32.A Depression, unspecified; F60.89 Other specific personality disorders; R07.89 Other chest pain; R94.6 Abnormal results of thyroid function studies; R11.15 Cyclical vomiting syndrome unrelated to migraine; K21.9 Gastro-esophageal reflux disease without esophagitis; F17.210 Nicotine dependence, cigarettes, uncomplicated; F41.0 Panic disorder [episodic paroxysmal anxiety]; Z79.82 Long term (current) use of aspirin; Z87.440 Personal history of urinary (tract) infections; Z91.51 Personal history of suicidal behavior; Z56.0 Unemployment, unspecified
CPT/HCPCS: 36415; 71046; 71275; 80048; 80053; 80061; 80306; 81003; 81025; 82088; 82530; 82533; 83036; 83690; 83735; 83835; 84244; 84439; 84443; 84484; 85025; 85610; 85730; 93005; 93306; 93351; 93975; 96374; 96375; 99285